=== PATIENT | female | born 1955 | race Caucasian/White ===

== ENCOUNTER 2017-03-01 16:40 | Emergency (ER) | payer BC ==
[2017-03-01 17:13] VITALS: TEMP 97.2
[2017-03-01] MEDS ORDERED: KETOROLAC 30 MG/ML 1 ML VIAL IM STA (17:20)
--- NOTE | 2017-03-01 17:30 | ED ---
Upper Extremity HPI - General Source: patient, RN notes reviewed Mode of arrival: ambulatory Limitations: no limitations <Sally Diehl - Last Filed: 03/01/17 19:39> <Israel Cross - Last Filed: 03/01/17 19:39> - General Chief Complaint: Extremity Injury, Upper Stated Complaint: Left Arm Injury Time Seen by Provider: 03/01/17 17:14 - History of Present Illness Initial Comments: This is a 62-year-old female who presents to the emergency department with chief complaint of left elbow injury. Patient states she was standing on a bale of hay in her barn at approximately 2:15 this afternoon. She reached up to grab a bale of hay higher up and 2 parker of hay came down, knocking her to the ground. Patient landed on her left arm. She states that she has elbow pain and feels it may be broken or dislocated. Denies any other injury or trauma. She applied ice to the area. She did not take any medications. Patient denies being on any blood thinners. She denies any head trauma. Denies fever, chills, chest pain, shortness of breath, abdominal pain, nausea or vomiting, constipation or diarrhea, numbness or tingling, headache or vision changes. (Sally Diehl) - Related Data Previous Rx's Medication Instructions Recorded HYDROcodone/APAP 5-325MG [[place] 5] 1 each PO Q6HR PRN #12 tab 03/01/17 Allergies Allergy/AdvReac Type Severity Reaction Status Date / Time Sulfa (Sulfonamide Allergy Unknown Verified 03/01/17 17:14 Antibiotics) Childhood Review of Systems ROS Other: All systems not noted in ROS Statement are negative. <Sally Diehl - Last Filed: 03/01/17 19:39> ROS Other: All systems not noted in ROS Statement are negative. <Israel Cross - Last Filed: 03/01/17 19:39> ROS Statement: Those systems with pertinent positive or pertinent negative responses have been documented in the HPI. Past Medical History Past Medical History: Hypertension History of Any Multi-Drug Resistant Organisms: None Reported Past Surgical History: No Surgical Hx Reported Past Psychological History: No Psychological Hx Reported Smoking Status: Never smoker Past Alcohol Use History: None Reported Past Drug Use History: None Reported <Sally Diehl - Last Filed: 03/01/17 19:39> General Exam Limitations: no limitations <ShanitaHal fishmanSally Tamir - Last Filed: 03/01/17 19:39> <Israel Cross - Last Filed: 03/01/17 19:39> - General Exam Comments Initial Comments: General: Awake and alert, well-developed; in no apparent distress. HEENT: Head atraumatic, normocephalic. Pupils are equal, round and reactive to light. Extraocular movements intact. Neck: Supple. Normal ROM. Cardiovascular: Regular rate and rhythm. No murmurs, rubs or gallops. Chest symmetrical. Respiratory: Lungs clear to auscultation bilaterally. No wheezes, rales or rhonchi. Normal respiratory effort with no use of accessory muscles. Musculoskeletal: There is an obvious gross deformity of the left elbow. Patient unable to flex or extend the elbow due to pain. Sensation is intact. Capillary refill <2 seconds. Radial pulses are 2+, equal and palpable bilaterally. Skin: [place], warm and dry without rashes or lesions. Neurological: Alert and oriented x3. CN II-XII grossly intact. Speech is fluent and answers are appropriate. No focal neuro deficits. Psychiatric: Normal mood and affect. No overt signs of depression or anxiety noted. (MailiHal fishmanSally Tamir) Vital Signs 03/01/17 17:09 Temperature 97.2 F L Pulse Rate 58 L Respiratory 17 Rate Blood Pressure 134/69 O2 Sat by Pulse 99 Oximetry Procedures - Orthopedic Splinting/Casting Injury #1 Side: left Upper Extremity Injury Location: elbow Upper Extremity Immobilizer: posterior splint, synthetic pre-padded splint <Sally Diehl - Last Filed: 03/01/17 19:39> - Orthopedic Joint Reduction Joint #1 Consent Obtained: verbal consent Time Out Performed: Yes Side: left Joint Reduction Location: elbow Technique Used: traction/counter-traction, direct manipulation Post-Reduction Neuro Exam: intact Post-Reduction Vascular Exam: intact Post Reduction X-Ray Obtained: Yes Post Reduction X-Ray Results: reduced Splint Applied: Yes Patient Tolerated Procedure: well <Israel Cross - Last Filed: 03/01/17 19:39> - Orthopedic Splinting/Casting Injury #1 Additional Comments: short arm OCL posterior splint. tolerated well without complication. neurovascularly intact. (Sally Diehl) Medical Decision Making - Radiology Data Radiology results: report reviewed <Sally Diehl - Last Filed: 03/01/17 19:39> <Israel Cross - Last Filed: 03/01/17 19:39> - Medical Decision Making This is a 62-year-old female who presented to the emergency department for evaluation of left elbow injury. X-ray revealed a total dislocation of the left elbow. Patient was given Valium and [place]. Patient was evaluated by Dr. Cross, who manually reduced the dislocation with success. Patient is neurovascularly intact. Posterior splint placed and patient tolerated well without complication. Patient provided with sling. She will be discharged home with recommendation to follow-up with orthopedics within 1-2 days. She is in agreement with plan voices understanding. All questions were answered. (Sally Diehl) - Radiology Data Left elbow x-ray impression: Complete dislocation of the left elbow. Fractures are not evident. Post-reduction left elbow x-ray impression: 1. Interval reduction. 2. Findings suspicious for nondisplaced transverse fracture the medial epicondyle. (Sally Diehl) Disposition Time of Disposition: 19:39 <Sally Diehl - Last Filed: 03/01/17 19:39> <Israel Cross - Last Filed: 03/01/17 19:39> Clinical Impression: Elbow dislocation Disposition: HOME SELF-CARE Condition: Good Instructions: Elbow Dislocation (ED) Additional Instructions: Please follow-up with Dr. Sanchez within 1-2 days. Please keep splint clean, dry and intact. Please take medications as prescribed. Please follow up with primary care provider within 1-2 days. Return to emergency department if symptoms should worsen or any concerns arise. Prescriptions: HYDROcodone/APAP 5-325MG [[place] 5] 1 each PO Q6HR PRN #12 tab PRN Reason: Pain Referrals: Rogerio Grissom MD [Primary Care Provider] - 1-2 days Delvin Sanchez MD [STAFF PHYSICIAN] - 1-2 days
[2017-03-01] MEDS ORDERED: DIAZEPAM 2 MG TAB PO STA (17:40)
[2017-03-01] MEDS ORDERED: HYDROcodone/APAP 5-325MG 1 EACH TAB PO STA (17:40)
--- NOTE | 2017-03-01 17:53 | XR ---
PROCEDURE: XR elbow limited LT, 2 views DATE AND TIME: 03/01/2017 5:31 PM REFERRING PHYSICIAN: Sally Diehl CLINICAL INDICATION: PHH, Pain TECHNIQUE: Lateral and oblique lateral views were obtained. COMPARISON: None FINDINGS: There is complete dislocation of the elbow. Fractures are not evident. IMPRESSION: Left elbow dislocation.
--- NOTE | 2017-03-01 19:16 | XR ---
PROCEDURE: XR elbow limited LT, 2 views DATE AND TIME: 03/01/2017 7:08 PM REFERRING PHYSICIAN: Israel Cross DO CLINICAL INDICATION: PHH, Post reduction TECHNIQUE: AP and lateral views COMPARISON: None FINDINGS: There is interval reduction of the previously dislocated elbow. Anatomic positioning and al ignment is noted at the present time. A transverse linear lucency is noted over the medial epicondyle, suspicious for nondisplaced transver se fracture. Joint effusion is noted. Prominent medial soft tissue swelling is noted. IMPRESSION: 1. INTERVAL REDUCTION. 2. FINDINGS SUSPICIOUS FOR NONDISPLACED TRANSVERSE FRACTURE OF THE MEDIAL EPICONDYLE.
[2017-03-01 19:46] VITALS: BP 135/72; PULSE 66; RESP 16
== END 2017-03-01 19:46 | disposition home or self-care (01) ==
LOC: EC 16:40
DX: S53.102A Unspecified subluxation of left ulnohumeral joint, initial encounter (principal); Z88.2 Allergy status to sulfonamides; W17.89XA Other fall from one level to another, initial encounter; Y92.71 Barn as the place of occurrence of the external cause; Y93.89 Activity, other specified
CPT/HCPCS: 73070; 99283; 24600; 96372; J1885

== ENCOUNTER 2023-02-03 18:06 | Inpatient (IN) | payer BC, OTHER ==
[2023-02-03] MEDS ORDERED: SODIUM CHLORIDE 0.9% 1,000 ML IV STA (18:28)
[2023-02-03] MEDS ORDERED: FAMOTIDINE 20 MG/2 ML VIAL IV STA (18:29)
[2023-02-03] MEDS ORDERED: HYDROmorphone 1 MG/ML 1 ML SYRINGE IVP STA (18:29)
--- NOTE | 2023-02-03 18:31 | ED ---
General Adult HPI - General Source: patient, RN notes reviewed Mode of arrival: ambulatory Limitations: no limitations <Juan Moore - Last Filed: 02/03/23 18:29> <Canelo Claudio - Last Filed: 02/03/23 22:54> - General Chief complaint: Abdominal Pain Stated complaint: abd pain Time Seen by Provider: 02/03/23 18:21 - History of Present Illness Initial comments: Patient is a pleasant 67-year-old female presenting to the emergency department with concerns with abdominal pain. Onset of symptoms was yesterday. No history of similar symptoms previous to. Discomfort is somewhat moderate to severe. No nausea or vomiting. Patient did have some constipation however that resolved a couple days ago. Discomfort is mid to lower abdomen (Juan Moore) - Related Data Previous Rx's Medication Instructions Recorded HYDROcodone/APAP 5-325MG [[place] 5] 1 each PO Q6HR PRN #12 tab 03/01/17 Allergies Allergy/AdvReac Type Severity Reaction Status Date / Time Sulfa (Sulfonamide Allergy Unknown Verified 03/01/17 17:14 Antibiotics) Childhood Review of Systems ROS Other: All systems not noted in ROS Statement are negative. Constitutional: Denies: fever Eyes: Denies: eye pain ENT: Denies: ear pain Respiratory: Denies: cough Cardiovascular: Denies: chest pain Gastrointestinal: Reports: as per HPI, abdominal pain. Denies: nausea, vomiting Genitourinary: Denies: dysuria Musculoskeletal: Denies: back pain Skin: Denies: rash Neurological: Denies: weakness <Juan Moore - Last Filed: 02/03/23 18:29> ROS Other: All systems not noted in ROS Statement are negative. <Canelo Claudio - Last Filed: 02/03/23 22:54> ROS Statement: Those systems with pertinent positive or pertinent negative responses have been documented in the HPI. Past Medical History Past Medical History: Hypertension History of Any Multi-Drug Resistant Organisms: None Reported Past Surgical History: No Surgical Hx Reported Past Psychological History: No Psychological Hx Reported Smoking Status: Never smoker Past Alcohol Use History: None Reported Past Drug Use History: None Reported <Juan Moore - Last Filed: 02/03/23 18:29> General Exam Limitations: no limitations General appearance: alert, in no apparent distress Head exam: Present: normocephalic Eye exam: Present: normal appearance Neck exam: Present: normal inspection Respiratory exam: Present: normal lung sounds bilaterally Cardiovascular Exam: Present: tachycardia Expanded Peripheral pulses: 2+: Dorsalis Pedis (R), Dorsalis Pedis (L) GI/Abdominal exam: Present: soft, tenderness (Moderate mid and moderate lower abdominal tenderness to palpation), diminished bowel sounds. Absent: distended, guarding, rebound, rigid, pulsatile mass Extremities exam: Present: normal inspection Neurological exam: Present: alert Psychiatric exam: Present: normal affect, normal mood Skin exam: Present: normal color <Juan Moore - Last Filed: 02/03/23 18:29> Course Vital Signs 02/03/23 18:14 Temperature 97.6 F Pulse Rate 116 H Respiratory 18 Rate Blood Pressure 146/83 O2 Sat by Pulse 99 Oximetry Medical Decision Making - Lab Data Result diagrams: 02/03/23 18:34 02/03/23 18:34 <Canelo Claudio - Last Filed: 02/03/23 22:54> - Medical Decision Making Patient's signout to me at 9:00 PM. At signout plan was follow up with pending CT imaging. Labs were reviewed no leukocytosis. Rest of labs within acceptable limits. I did review the films and did show some inflammatory changes in the lower abdomen. Radiology called with final report states that patient has a complicated diverticulitis versus acute appendicitis. Chin evaluated at bedside at 10:50 PM. She does have surgical abdomen. Clinical presentation fevers complicated diverticulitis as opposed to acute appendicitis. She states that she has no history of appendectomy. Case discussed with Dr. Castrejon who is agreeable for consultation on this patient. Patient otherwise will be admitted to hospitalist. Diagnosis/symptom? @ -Complicated diverticulitis Acute, or Chronic, or Acute on Chronic? @ -Acute Uncomplicated (without systemic symptoms) or Complicated (systemic symptoms)? @ -Complicated Side effects of treatment? @ -none Exacerbation, Progression, or Severe Exacerbation] @ -no Poses a threat to life or bodily function? @ -yes (Canelo Claudio) - Lab Data Lab Results 02/03/23 02/03/23 02/03/23 Range/Units 18:34 18:34 18:34 WBC 9.2 (3.8-10.6) k/uL RBC 5.11 (3.80-5.40) m/uL Hgb 15.4 (11.4-16.0) gm/dL Hct 45.0 (34.0-46.0) % MCV 88.1 (80.0-100.0) fL MCH 30.0 (25.0-35.0) pg MCHC 34.1 (31.0-37.0) g/dL RDW 13.8 (11.5-15.5) % Plt Count 282 (150-450) k/uL MPV 8.0 Neutrophils % 84 % Lymphocytes % 11 % Monocytes % 4 % Eosinophils % 0 % Basophils % 0 % Neutrophils # 7.7 (1.3-7.7) k/uL Lymphocytes # 1.0 (1.0-4.8) k/uL Monocytes # 0.3 (0-1.0) k/uL Eosinophils # 0.0 (0-0.7) k/uL Basophils # 0.0 (0-0.2) k/uL PT 10.2 (10.0-12.5) sec INR 0.9 (<1.2) APTT 24.2 (22.0-30.0) sec Sodium 138 (137-145) mmol/L Potassium 4.5 (3.5-5.1) mmol/L Chloride 99 (98-107) mmol/L Carbon Dioxide 22 (22-30) mmol/L Anion Gap 17 mmol/L BUN 26 H (7-17) mg/dL Creatinine 0.91 (0.52-1.04) mg/dL Est GFR (CKD-EPI)AfAm 76 (>60 ml/min/1.73 sqM) Est GFR (CKD-EPI)NonAf 65 (>60 ml/min/1.73 sqM) Glucose 158 H (74-99) mg/dL Calcium 10.1 (8.4-10.2) mg/dL Total Bilirubin 1.2 (0.2-1.3) mg/dL AST 26 (14-36) U/L ALT 31 (4-34) U/L Alkaline Phosphatase 82 (38-126) U/L Total Protein 9.2 H (6.3-8.2) g/dL Albumin 4.9 (3.5-5.0) g/dL Amylase 43 (30-110) U/L Lipase 45 (23-300) U/L Disposition <Juan Moore - Last Filed: 02/03/23 18:29> Decision Time: 22:54 <Canelo Claudio - Last Filed: 02/03/23 22:54> Clinical Impression: Diverticulitis Disposition: ADMITTED IP TO THIS HOSP Condition: Serious Referrals: None,Stated [Primary Care Provider] - 1-2 days
[2023-02-03 19:36] LABS: INR 0.9 (<1.2); Partial Thromboplastin Time 24.2 sec (22.0-30.0); Prothrombin Time 10.2 sec (10.0-12.5)
[2023-02-03 19:37] LABS: ALT 31 U/L (4-34); AST 26 U/L (14-36); African American GFR (CKD) 76 (>60 ml/min/1.73 sqM); Albumin 4.9 g/dL (3.5-5.0); Alkaline Phosphatase 82 U/L (38-126); Amylase 43 U/L (30-110); Anion Gap 17 mmol/L; Blood Urea Nitrogen 26 mg/dL (7-17); Calcium 10.1 mg/dL (8.4-10.2); Carbon Dioxide 22 mmol/L (22-30); Chloride 99 mmol/L (98-107); Glucose 158 mg/dL (74-99); Lipase 45 U/L (23-300); Non-African American GFR(CKD) 65 (>60 ml/min/1.73 sqM); Potassium 4.5 mmol/L (3.5-5.1); Sodium 138 mmol/L (137-145); Total Bilirubin 1.2 mg/dL (0.2-1.3); Total Protein 9.2 g/dL (6.3-8.2)
[2023-02-03 19:42] LABS: Basophils % (A) 0 %; Eosinophils % (A) 0 %; HGB 15.4 gm/dL (11.4-16.0); Lymphocytes % (A) 11 %; MCHC 34.1 g/dL (31.0-37.0); MCV 88.1 fL (80.0-100.0); Monocytes # (A) 0.3 k/uL (0-1.0); Monocytes % (A) 4 %; Neutrophils # (A) 7.7 k/uL (1.3-7.7); Neutrophils % (A) 84 %; Platelet Count 282 k/uL (150-450); RBC 5.11 m/uL (3.80-5.40); RDW 13.8 % (11.5-15.5); WBC 9.2 k/uL (3.8-10.6)
[2023-02-03] MEDS ORDERED: PIPERACILLIN-TAZOBACTAM 3.375 GM in SODIUM CHLORIDE 0.9% 100 ML IVPB STA (22:24)
--- NOTE | 2023-02-03 22:32 | CT ---
EXAMINATION TYPE: CT abdomen pelvis w con CT DLP: 1059.8 mGycm, Automated exposure control for dose reduction was used. DATE OF EXAM: 02/03/2023 8:32 PM COMPARISON: None. CLINICAL INDICATION:Female, 67 years old with history of abdominal pain; Medial abdominal pain. TECHNIQUE: Axial CT of the abdomen and pelvis. Sagittal and coronal reformats were created on a [employer] workstation. Contrast used:80 ml mL of Isovue 300 with IV Contrast, (none if empty) Oral contrast used: without Oral Contrast (none if empty) FINDINGS: LOWER CHEST: Minimal dependent atelectasis. Heart normal in size. ABDOMEN LIVER: Unremarkable GALLBLADDER AND BILE DUCTS: Gallbladder appears mildly distended without visualized pericholecystic i nflammation. There is no calcified stone visible. The CBD appears mildly prominent at 9 mm, appears t o taper relatively normal distally. PANCREAS: Unremarkable. SPLEEN: Unremarkable. ADRENAL GLANDS: Mildly thickened without evidence of mass.. KIDNEYS AND URETERS: Kidneys enhance symmetrically. Transverse lie of the right kidney. Small low-den sity nodule in the posterior right kidney is not fully characterized, but has the appearance of a cys t. No hydronephrosis. PELVIS BLADDER: Mildly distended, grossly unremarkable. REPRODUCTIVE: Unremarkable. ABDOMEN & PELVIS STOMACH AND BOWEL: Stomach is fluid-filled proximally, nondistended distally. Duodenum appears within normal limits. Multiple nondistended loops of small bowel are present, there is no evidence of obstr uction. Mild fatty infiltration of the ileocecal valve. There is an abnormal appearance within the r ight upper pelvis and right lower quadrant. Appendix is not definitively seen. There is extensive inf lammatory infiltration of the fat and some nonfocal fluid seen within the right lower quadrant and in to the pelvis. There are multiple small foci of extraluminal gas highly concerning for perforated vis cus. A collection which appears to contain some stool and gas in the right lower quadrant inferior to the cecum medially is 3 x 1.7 cm in size; this may represent extraluminal stool or abscess. Origin i s not entirely certain, but there appears to be adjacent gas which extends toward the midline of the pelvis and towards the sigmoid colon, where there are numerous colonic diverticula seen, and the sigm oid wall appears thickened. Moderate stool throughout the colon without evidence of obstruction. PERITONEUM/RETROPERITONEUM: Small amounts of free fluid in the abdomen and pelvis. Multiple small foc i of free intraperitoneal air, greatest in the pelvis and right lower quadrant, as described above. S everal additional small foci of free air also seen in the abdomen. VASCULATURE: Mild atherosclerotic calcifications are present throughout the abdominal aorta and its b ranches. No evidence of aortic aneurysm. MUSCULOSKELETAL: Moderate degenerative changes of the spine, greatest at L4-L5 and L5-S1 there is vac uum disc and disc osteophyte complexes plus facet arthrosis resulting in at least moderate canal and bilateral neural foraminal stenoses. Small sclerotically marginated Schmorl's node along the superior endplate T12. No clearly acute bony abnormality. LYMPH NODES: No gross evidence for lymphadenopathy. SOFT TISSUE/ABDOMINAL WALL: Unremarkable IMPRESSION: 1. Abnormal appearance of the right lower quadrant and upper pelvis, with extensive inflammatory azael nges and multiple foci of extraluminal gas highly concerning for perforated viscus. There is also a 3 x 1.7 cm collection which appears to contain gas and stool in the right lower quadrant, this may res ent extraluminal stool or abscess. The exact origin is not certain, but a perforated sigmoid divertic ulitis is strongly considered. Appendicitis would be a differential consideration. 2. Small amounts of free fluid in the abdomen and pelvis. 3. Other chronic and likely incidental findings, as described above. Dr. Medrano discussed the above critical findings (perforated viscus with free intraperitoneal air) paris Moore DO on 02/03/2023 10:23 PM via telephone. Read back of the patient's identifying informa tion and the important finding/s was performed.
[2023-02-03] MEDS ORDERED: NALOXONE 0.4 MG/ML 1 ML VIAL IV PRN (22:51)
[2023-02-03] MEDS ORDERED: ACETAMINOPHEN TAB 325 MG TAB PO PRN (22:51)
[2023-02-03] MEDS: HYDROmorphone 1 MG/ML 1 ML SYRINGE IVP PRN (23:18)
[2023-02-04] MEDS: SODIUM CHLORIDE 0.9% 1,000 ML IV SCH ×4 (00:10→22:06)
[2023-02-04 00:28] LABS: Hyaline Casts,Urine 7 /lpf (0-2); RBC,Urine 22 /hpf (0-5); Squamous Epithelial Cell,Urine 3 /hpf (0-4); WBC,Urine 10 /hpf (0-5)
[2023-02-04 00:33] LABS: Appearance,Urine Clear (Clear); Bilirubin,Urine Negative (Negative); Blood,Urine Large (Negative); Color,Urine Yellow; Glucose,Urine (UA) Negative (Negative); Ketones,Urine 1+ (Negative); Leukocyte Esterase,Urine Trace (Negative); Nitrite,Urine Negative (Negative); PH, Urine 5.5 (5.0-8.0); Protein,Urine 1+ (Negative); Specific Gravity,Urine 1.015 (1.001-1.035); Urobilinogen,Urine 0.2 mg/dL (<2.0)
--- NOTE | 2023-02-04 01:15 | P.CON ---
Consult Note - . Consult date: 02/04/23 Assessment/Plan:: CC: Abdominal pain HPI: 67-year-old female notes abdominal pain which began approximately a day and a half prior to presentation, pain mild at first and became progressively worse patient notes pain in the lower abdomen, slightly greater right side and left. Patient denies any fever or chills, notes no nausea or vomiting, no diarrhea. Patient notes some recent constipation with a large BM a few days ago, has passed a small amount of flatus today. Denies any previous history of similar complaints. Patient has not had previous colonoscopy. 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 PE: Patient is drowsy, oriented 3, appears mildly uncomfortable Temp 97.6 pulse rate 98, BP 142/83 Sclerae clear nonicteric No cervical adenopathy Chest clear to auscultation Tachycardia, no murmur noted Abdomen's protuberant, moderately obese, tender in lower quadrants bilaterally LABS: Hemoglobin 15.4, WBC 9.2, platelets 282, electrolytes normal, glucose 158, BUN/creatinine 26 over 0.9, lipase normal Imaging: CT abdomen and pelvis notes marked inflammatory change in lower abdomen with probable abscess 3 x 1.7 cm right lower quadrant, diverticular changes are noted in the sigmoid colon, small amount of extraluminal gas also noted. A/P: 67-year-old female with complicated diverticulitis, probable small abscess Agree with broad-spectrum antibiotics, nothing by mouth, IV fluid hydration Consider IR consult for possible drainage, patient may need exploration with colectomy if symptoms progress DVT prophylaxis, your medical care
[2023-02-04] MEDS: metroNIDAZOLE-NS PMX 500 MG in SALINE 1 100ML.BAG IVPB SCH ×3 (01:44→21:55)
[2023-02-04] MEDS: PIPERACILLIN-TAZOBACTAM 3.375 GM in SODIUM CHLORIDE 0.9% 100 ML IVPB SCH ×3 (06:30→23:51)
[2023-02-04] MEDS: HEPARIN SODIUM,PORCINE 5,000 UNIT/ML 1 ML VIAL SQ SCH ×2 (07:56→22:05)
[2023-02-04 10:22] LABS: Basophils % (A) 0 %; Eosinophils % (A) 0 %; HCT 41.3 % (34.0-46.0); HGB 13.4 gm/dL (11.4-16.0); Lymphocytes # (A) 0.8 k/uL (1.0-4.8); Lymphocytes % (A) 8 %; MCH 29.1 pg (25.0-35.0); MCHC 32.3 g/dL (31.0-37.0); MCV 90.1 fL (80.0-100.0); Mean Platelet Volume 8.3; Monocytes # (A) 0.5 k/uL (0-1.0); Monocytes % (A) 5 %; Neutrophils # (A) 8.8 k/uL (1.3-7.7); Neutrophils % (A) 86 %; Platelet Count 221 k/uL (150-450); RBC 4.58 m/uL (3.80-5.40); RDW 13.8 % (11.5-15.5); WBC 10.3 k/uL (3.8-10.6)
[2023-02-04] MEDS ORDERED: hydrALAZINE HCL 20 MG/ML 1 ML VIAL IVP PRN (13:04)
--- NOTE | 2023-02-04 13:38 | P.PN ---
Subjective Progress Note Date: 02/04/23 Patient has clinical decline since admission with progressed peritonitis. Abdominal pain started 3 days ago of the lower abdomen now generalized. CT reviewed with perforated diverticulitis with free air. Patient with sepsis with tachycardia, fever, peritonitis and somnolence. Benefits and risks of emergent sigmoid colectomy, colostomy described. Patient wished to proceed. Objective - Vital Signs Vital signs: Vital Signs Temp 99.7 F H 02/04/23 10:49 Pulse 120 H 02/04/23 07:40 Resp 17 02/04/23 07:40 BP 148/80 02/04/23 07:17 Pulse Ox 97 02/04/23 07:17 FiO2 Intake & Output 02/03/23 02/04/23 02/04/23 18:59 06:59 18:59 Weight 77.111 kg 77.111 kg - Labs CBC & Chem 7: 02/04/23 07:27 02/03/23 18:34 Labs: Abnormal Lab Results - Last 24 Hours (Table) 02/03/23 02/03/23 02/04/23 Range/Units 18:34 23:22 07:27 Neutrophils # 8.8 H (1.3-7.7) k/uL Lymphocytes # 0.8 L (1.0-4.8) k/uL BUN 26 H (7-17) mg/dL Glucose 158 H (74-99) mg/dL Total Protein 9.2 H (6.3-8.2) g/dL Urine Protein 1+ H (Negative) Urine Ketones 1+ H (Negative) Urine Blood Large H (Negative) Ur Leukocyte Esterase Trace H (Negative) Urine RBC 22 H (0-5) /hpf Urine WBC 10 H (0-5) /hpf Hyaline Casts 7 H (0-2) /lpf
--- NOTE | 2023-02-04 14:38 | XR ---
EXAMINATION TYPE: XR chest 1V portable DATE OF EXAM: 02/04/2023 2:33 PM CLINICAL INDICATION:Female, 67 years old with history of chf; PHH COMPARISON: None. TECHNIQUE: XR chest 1V portable Frontal view of the chest. FINDINGS: Lungs/Pleura: Subsegmental atelectasis is noted in the right lung base. No evidence of pleural effusi on or pneumothorax. Pulmonary vascularity: Unremarkable. Heart/mediastinum: Cardiomediastinal silhouette is unremarkable. Musculoskeletal: No acute osseous pathology. IMPRESSION: No acute cardiopulmonary disease/process.
[2023-02-04] MEDS: PANTOPRAZOLE 40 MG/10 ML VIAL IVP SCH ×2 (15:06→22:05)
[2023-02-04] MEDS ORDERED: SODIUM CHLORIDE 0.9% 2,000 ML IV ONE (15:30)
[2023-02-04] MEDS ORDERED: ACETAMINOPHEN IV (For NPO) 1,000 MG in EMPTY BAG 1 BAG IVPB STA (15:30)
[2023-02-04] MEDS ORDERED: IV FLUID CONTINUATION 400 ML IV ONE (16:14)
[2023-02-04] MEDS ORDERED: ePHEDrine 50 MG/ML 1 ML VIAL ONE (16:38)
[2023-02-04] MEDS ORDERED: ONDANSETRON 4 MG/2 ML VIAL ONE (16:38)
[2023-02-04] MEDS ORDERED: PROPOFOL 10 MG/ML 20 ML VIAL IV ONE (16:38)
[2023-02-04] MEDS ORDERED: ROCURONIUM 10 MG/ML (5 ML VIAL) IV ONE (16:38)
[2023-02-04] MEDS ORDERED: GLYCOPYRROLATE 0.2 MG/ML 2 ML VIAL ONE (16:38)
[2023-02-04] MEDS ORDERED: HYDROmorphone (PF) 1 MG/ML ONE (16:38)
[2023-02-04] MEDS ORDERED: DEXAMETHASONE SOD PHOSPHATE 4 MG/ML 1 ML VIAL ONE (16:38)
[2023-02-04] MEDS ORDERED: PHENYLEPHRINE-0.9% NACL SYG 1,000 MCG/10 ML SYRINGE ONE (16:38)
[2023-02-04] MEDS ORDERED: LIDOCAINE 1% INJ 10MG/ML (20 ML MDV) ONE (16:38)
[2023-02-04] MEDS ORDERED: NEOSTIGMINE 1 MG/ML 10 ML VIAL ONE (16:38)
[2023-02-04] MEDS ORDERED: fentaNYL (PF) 50 MCG/ML 2 ML AMP ONE (16:38)
[2023-02-04] MEDS ORDERED: SUCCINYLCHOLINE CHLORIDE 200 MG/10 ML VIAL IV ONE (16:38)
[2023-02-04] MEDS ORDERED: ceFAZolin 1,000 MG VIAL ONE (17:12)
[2023-02-04] MEDS ORDERED: SODIUM CHLORIDE 0.9% 50 ML with ceFAZolin 2,000 MG IV ONE ×2 (17:12)
[2023-02-04] MEDS ORDERED: SODIUM CHLORIDE 0.9% 100 ML BAG ONE (17:12)
[2023-02-04] MEDS ORDERED: METOCLOPRAMIDE 5 MG/ML 2 ML VIAL IVP PRN (19:29)
--- NOTE | 2023-02-04 19:36 | P.OP ---
Date of Procedure: 02/04/23 Description of Procedure: SURGEON: JOSIAH NELSON MD PREOPERATIVE DIAGNOSES: 1. Perforated viscus with pneumoperitoneum 2. Sepsis 3. Abnormal computed tomography scan for perforated diverticulitis POSTOPERATIVE DIAGNOSES: 1. Sigmoid diverticulitis 2. Perforated appendicitis 3. Pelvic abscess OPERATION: 1. Exploratory laparotomy with sigmoid resection for diverticulitis 2. Descending colostomy. 3. Open appendectomy for perforated necrotic appendicitis 4. Hoang's procedure similar diverticulitis 5. Peritoneal lavage over 3 liters 6. Placement of intraabdominal #19 Gordon drain along the right lower pelvis. 7. Placement of 20 cm PREVENA wound VAC system 8. Drainage of intra-abdominal abscess 100 mL, pelvis 9. Open lysis of adhesions ANESTHESIA: General ESTIMATED BLOOD LOSS: 50mL. SPECIMENS REMOVED: Sigmoid colon, aerobic and anaerobic culture pelvic abscess, appendix COMPLICATIONS: None. Pathology: other (Aerobic and anaerobic culture of pelvic fluid, sigmoid colon, appendix) Condition: stable Disposition: floor Operative Findings: 1. Perforated sigmoid colon with adherence to the left pelvis along the mesentery 2. Localized intra-abdominal pelvic abscess over 100 mL drained 3. Intra-abdominal pelvic adhesions 4. Redundant sigmoid colon 5. Perforated necrotic appendicitis at base with appendicolith 2, 1-cm removed. 6. Developing phlegmon of the pelvis INDICATIONS: The patient is a 67-year-old female who presents with free air from perforated viscus. Abnormal computed tomography scan demonstrated perforated diverticulitis. Patient became febrile with sepsis. Emergency surgical intervention was described including but not limited to Coulter catheter, nasogastric tube, colectomy, ostomy creation, prolonged hospitalization, increased morbidity due to Covid infection. All questions were answered with diagrams of the colon reviewed. Rrisks were reviewed with the patient including at bedside. Informed consent was obtained. DESCRIPTION: Patient was brought to the operating room. Preoperative medications including antibiotics and heparin were given. The patient was placed in supine position whereby general induction was performed. Abdomen had been prepped and draped in the standard sterile fashion with placement of nasogastric tube and Coulter catheter. Ioban draping was also placed to minimize any contamination to the skin. Next, using #10 blade, the abdomen was entered along the midline whereby an incision was made just above the umbilicus down to the pubis. The abdomen was inspected whereby the small bowel was unremarkable. The mesentery was also unremarkable. Intra-abdominal pelvic abscess localized was found and drained. Separately, the liver surface was palpated and unremarkable. No peritoneal studding was identified. Next, Bookwalter retractor was placed. The descending colon and sigmoid colon was mobilized along the medial and lateral attachments with care to avoid any injury to the ureters along the usual anatomical landmarks. Carefully the sigmoid colon was identified and mobilized. The sigmoid colon was moderately redundant with perforation along the intermesenteric border of the mid sigmoid colon which was densely adherent to the left pelvis. Lysis of adhesions was performed using Enseal. Previous omental adhesions to the right lower quadrant was similarly removed using Enseal. The sigmoid colon was mobilized along the mesentery where a window was made along the mesentery and the colon was divided such that the descending colon was prepared for maturation of a colostomy. The colon was divided proximally and distally of the perforation using ALICE App Endo CHRISTINA black ronald. The specimen was passed off. Hemostasis was checked with electro Bovie cautery including Enseal. The abdomen was copiously irrigated with 3 L of normal saline solution. A round #19 drain was placed after tagging the rectal stump using 2-0 Prolene. Next, attention was brought to the delivering and creating of the descending colostomy. A point along the abdominal wall and rectus muscle was selected for the colostomy. Isra was used to elevate the skin and Bovie cautery was taken across in tangential manner to create the skin defect of approximately quarter-size. The fat of the skin was mobilized using a small rich. The rectus muscle was identified and scored with a cruciate scoring of electro- Bovie cautery. Next, using a muscle-splitting technique with a hemostat, the peritoneum was entered. The peritoneum was widened such that 2 fingerbreadths could easily pass for delivering and evaginating the descending portion of the colon through the skin. The abdominal cavity was copiously irrigated as described until completely clear. Round number #19 Gordon drain was entered along the right lower abdomen and exited through the skin. The drain was placed along the pelvis as all irrigation fluid was accounted for. Next, the RUBEN drain was tacked along the skin using a 2-0 nylon. The midline incision was closed using double-stranded 0 PDS. Next, the subcutaneous tissue was copiously irrigated with normal saline and hydrogen peroxide. For the rest of the incision, stainless steel skin ronald were applied. The midline incision was covered using universal PREVENA wound VAC and attention was brought to maturation of the colostomy. The staple edge was divided and removed. Next quadrant sutures at 12 o'clock, 3 o'clock, 6 o'clock, and 9 o'clock position was made using serosa, mucosal and dermal bites using 2-0 Vicryl. Interrupted 3-0 Vicryl was placed in between all quadrants sutures to completely mature the ostomy. Hemostasis was checked. A Coloplast was then placed. At the end of the procedure, needle, sponge, and instrument count had been verified correct by aviation electrical technician. The patient's family was updated on level of care.
--- NOTE | 2023-02-04 21:05 | HP ---
HISTORY AND PHYSICAL CHIEF COMPLAINT: Abdominal pain. HISTORY OF PRESENT ILLNESS: This is a 67-year-old woman with a past medical history of hypertension, who was complaining of severe abdominal pain, which was felt in the lower part and the mid part of the abdomen. The pain was [id number]. The patient had some constipation, which has resolved a few days prior to the admission. The CAT scan of the abdomen and pelvis done showed extensive inflammatory changes with possible multiple foci of extraluminal gas and suspicious for perforated viscus. Surgery is following the patient closely. Please refer to the surgical consultation note for further details. The patient is started on broad-spectrum IV antibiotics. There is no history of any fever, rigor, or chills at this time. White count is normal. PAST MEDICAL HISTORY: History of hypertension. Rest of the history and rest of the chart are also reviewed. HOME MEDICATIONS: Reviewed include amlodipine. Doses and rest of the medications are noted. ALLERGIES: Sulfa. FAMILY HISTORY: No history of heart disease or strokes in the family. SOCIAL HISTORY: No history of smoking or alcohol intake. REVIEW OF SYSTEMS: Fourteen-point review is negative except as mentioned earlier. PHYSICAL EXAMINATION: VITAL SIGNS: Pulse is 120, blood pressure 148/80, respirations 17, temperature of 100.7. HEENT: Conjunctivae are normal. NECK: No jugular venous distention. CARDIOVASCULAR: S1 and S2 muffled. RESPIRATORY: Breath sounds diminished at the bases. No rhonchi. No crackles. ABDOMEN: Soft. Distended. Mild diffuse tenderness present, especially in the right mid and lower quadrant. No guarding. No rigidity. No ascites. Bowel sounds diminished. LEGS: No edema. NERVOUS SYSTEM: Nonfocal. SKIN: No ulcers or rashes. JOINTS: No active deforming arthropathy. LABORATORY DATA: Noted. ASSESSMENT: 1. Acute abdominal pain with acute abdomen with possible visceral perforation. 2. Diffuse inflammatory changes and collection of fluid. 3. Hypertension. 4. Severe pain. RECOMMENDATIONS AND DISCUSSION: In this 67-year-old woman presented with multiple complex medical issues, we will monitor the patient closely. Continue with current medical management. Continue symptomatic treatment. The patient will continue with broad-spectrum IV antibiotics. Pain management. Otherwise, I would also recommend Protonix and DVT prophylaxis. Continue with Surgical evaluation. The patient will probably require a laparotomy and further evaluation. The staff will talk to the surgeon and continue to monitor. Otherwise, prognosis is guarded. Further recommendations to follow. I would also recommend Infectious Disease evaluation also. The patient probably had features of early sepsis also. MMODL / IJN: [id number] /
[2023-02-04] MEDS: LORATADINE 10 MG TAB PO PRN (22:05)
[2023-02-04] MEDS: ACETAMINOPHEN IV (For NPO) 1,000 MG in EMPTY BAG 1 BAG IVPB SCH (22:06)
[2023-02-04] MEDS: ONDANSETRON 4 MG/2 ML VIAL IVP SCH (23:51)
[2023-02-05] MEDS: metroNIDAZOLE-NS PMX 500 MG in SALINE 1 100ML.BAG IVPB SCH ×3 (02:38→17:12)
[2023-02-05] MEDS: HYDROmorphone 1 MG/ML 1 ML SYRINGE IVP PRN ×4 (02:39→20:10)
[2023-02-05] MEDS: ACETAMINOPHEN IV (For NPO) 1,000 MG in EMPTY BAG 1 BAG IVPB SCH ×3 (04:25→15:03)
[2023-02-05] MEDS: PIPERACILLIN-TAZOBACTAM 3.375 GM in SODIUM CHLORIDE 0.9% 100 ML IVPB SCH ×3 (06:39→23:15)
[2023-02-05] MEDS: ONDANSETRON 4 MG/2 ML VIAL IVP SCH ×4 (06:40→23:15)
[2023-02-05] MEDS: SODIUM CHLORIDE 0.9% 1,000 ML IV SCH ×2 (07:06→14:24)
[2023-02-05 08:37] LABS: Basophils # (A) 0.01 X 10*3/uL (0.00-0.10); Basophils % (A) 0.1 %; Eosinophils # (A) 0 X 10*3/uL (0.04-0.35); Eosinophils % (A) 0 %; HCT 35.9 % (37.2-46.3); HGB 11.6 g/dL (12.0-15.0); Lymphocytes # (A) 0.64 X 10*3/uL (0.90-5.00); Lymphocytes % (A) 5.7 %; MCH 28.7 pg (27.0-32.0); MCHC 32.3 g/dL (32.0-37.0); MCV 88.9 FL (80.0-97.0); Mean Platelet Volume 9.6 FL (9.5-12.2); Monocytes # (A) 0.93 X 10*3/uL (0.20-1.00); Monocytes % (A) 8.3 %; NRBC Per 100 WBC 0 X 10*3/uL (0.00-0.01); Neutrophils # (A) 9.65 X 10*3/uL (1.80-7.70); Neutrophils % (A) 85.6 %; Platelet Count 225 X 10*3/uL (140-440); RBC 4.04 X 10*6/uL (4.10-5.20); RDW 14.6 % (11.5-14.5); WBC 11.26 X 10*3/uL (4.50-10.00)
[2023-02-05] MEDS: HEPARIN SODIUM,PORCINE 5,000 UNIT/ML 1 ML VIAL SQ SCH ×2 (08:52→20:11)
[2023-02-05 08:54] LABS: BUN/Creat Ratio 26.14 Ratio (12.00-20.00); Blood Urea Nitrogen 18.3 mg/dL (9.0-27.0); Glucose 180 mg/dL (70-110)
[2023-02-05 08:55] LABS: ALT 14 U/L (8-44); AST 8 U/L (13-35); Albumin/Globulin Ratio 1.25 Ratio (1.60-3.17); Alkaline Phosphatase 57 U/L (41-126); Calcium 8.7 mg/dL (8.7-10.3); Carbon Dioxide 24.3 mmol/L (21.6-31.8); Chloride 106 mmol/L (96-109); Globulin 2.4 g/dL (1.6-3.3); Potassium 4.5 mmol/L (3.5-5.5); Sodium 138 mmol/L (135-145); Total Bilirubin 0.5 mg/dL (0.3-1.2); Total Protein 5.4 g/dL (6.2-8.2)
[2023-02-05] MEDS: PANTOPRAZOLE 40 MG/10 ML VIAL IVP SCH ×2 (08:56→20:11)
--- NOTE | 2023-02-05 13:50 | P.PN ---
Subjective Progress Note Date: 02/05/23 CHIEF COMPLAINT: Abdominal pain HISTORY OF PRESENT ILLNESS: Patient is postop day #1 status post exploratory laparotomy with sigmoid resection for diverticulitis, descending colostomy, open appendectomy for perforated necrotic appendicitis, Mukherjee's procedure, drainage of intra-abdominal abscess, open lysis of adhesions. Patient is sitting at bedside chair. Her pain is controlled. No function per ostomy. Denies any nausea or vomiting. Currently afebrile. WBC is up to 11.26 Hgb 11.6 platelets 225 cultures pending RUBEN drain with serosanguineous output PHYSICAL EXAM: VITAL SIGNS: Reviewed GENERAL: Well-developed in no acute distress. HEENT: No sclera icterus. Extraocular movements grossly intact. Moist buccal mucosa. Head is atraumatic, normocephalic. Hears conversational speech. No nasal drainage. NECK: Supple without lymphadenopathy. CHEST: Non-labored respirations and equal bilateral excursions. CARDIOVASCULAR: Palpable 2+ radial pulses. ABDOMEN: Soft. Mildly distended. Prevana wound VAC intact. RUBEN drain service and was MUSCULOSKELETAL: No clubbing or cyanosis. NEUROLOGIC: No focal or lateralizing signs. Cranial nerves II through XII grossly intact. PSYCH: Appropriate affect. Alert and oriented to person, place and time. SKIN: Well perfused. Good skin turgor. ASSESSMENT: 1. Sigmoid diverticulitis 2. Perforated appendicitis 3. Pelvic abscess 4. Perforated viscus with pneumoperitoneum 5. Sepsis PLAN: -Advance diet to low fiber -Incentive spirometer ordered -Encouraged patient to increase activity level -Continue antibiotics -Continue pain management -DVT prophylaxis subcu heparin and GI prophylaxis Protonix Physician Doctor Osteopathic note has been reviewed by physician. Signing provider agrees with the documented findings, assessment, and plan of care. Objective - Vital Signs Vital signs: Vital Signs Temp 97.8 F 02/05/23 07:07 Pulse 82 02/05/23 07:07 Resp 19 02/05/23 07:07 BP 111/68 02/05/23 07:07 Pulse Ox 98 02/05/23 07:07 FiO2 Intake & Output 02/04/23 02/05/23 02/05/23 18:59 06:59 18:59 Intake Total 1850 0 200 Output Total 535 200 Balance 1850 -535 0 Intake: IV 1850 0 Intake, IV Titration 200 Amount ACETAMINOPHEN IV (For NPO 100 ) 1,000 mg In Empty Bag 1 bag @ 400 mls/hr IVPB Q6H [facility] Rx#:[id number] metroNIDAZOLE-NS PMX 500 100 mg In Saline 1 100ml.bag @ 100 mls/hr IVPB Q8H [facility] Rx#:[id number] Output: Urine 485 200 Estimated Blood Loss 50 Other: Voiding Method Indwelling Catheter Indwelling Catheter # Voids 2 - Labs CBC & Chem 7: 02/05/23 05:41 02/05/23 05:41 Labs: Abnormal Lab Results - Last 24 Hours (Table) 02/05/23 02/05/23 Range/Units 05:41 05:41 WBC 11.26 H (4.50-10.00) X 10*3/uL RBC 4.04 L (4.10-5.20) X 10*6/uL Hgb 11.6 L (12.0-15.0) g/dL Hct 35.9 L (37.2-46.3) % RDW 14.6 H (11.5-14.5) % Neutrophils # 9.65 H (1.80-7.70) X 10*3/uL Lymphocytes # 0.64 L (0.90-5.00) X 10*3/uL Eosinophils # 0 L (0.04-0.35) X 10*3/uL BUN/Creatinine Ratio 26.14 H (12.00-20.00) Ratio Glucose 180 H (70-110) mg/dL AST 8 L (13-35) U/L Total Protein 5.4 L (6.2-8.2) g/dL Albumin 3.0 L (3.8-4.9) g/dL Albumin/Globulin Ratio 1.25 L (1.60-3.17) Ratio Microbiology - Last 24 Hours (Table) 02/04/23 18:53 Gram Stain - Preliminary Abdomen 02/04/23 18:53 Gram Stain - Preliminary Appendix
--- NOTE | 2023-02-05 20:05 | PN ---
PROGRESS NOTE DATE OF SERVICE: 02/05/2023 SUBJECTIVE: This is a 67-year-old woman, who was admitted with abdominal perforation, had surgery and sigmoid perforation also. The patient was also found to have apparently perforated appendicitis. The patient had a pelvic abscess. The patient underwent sigmoid resection and descending colostomy also. The patient is being closely monitored. The patient still has some pain, but much better. PAST MEDICAL HISTORY: Reviewed. REVIEW OF SYSTEMS: Fourteen-point review is negative except as mentioned earlier. CURRENT MEDICATIONS: Reviewed include IV Zosyn. Rest of the medications are noted. PHYSICAL EXAMINATION: VITAL SIGNS: Pulse is 86, blood pressure 120/73, respirations 15. HEENT: Conjunctivae are normal. NECK: No jugular venous distention. CARDIOVASCULAR: S1 and S2 muffled. RESPIRATORY: Breath sounds diminished at the bases. ABDOMEN: Soft. Status post surgery. LEGS: No edema. NERVOUS SYSTEM: Nonfocal. LABORATORY DATA: WBC 11.6. Other labs are noted. ASSESSMENT: 1. Possibly early sepsis. 2. Acute abdominal pain with acute abdominal perforation, perforated appendicitis, and pelvic abscess, status post exploratory laparotomy, sigmoid resection, and diverting colostomy. 3. Diffuse inflammatory changes and collection of fluid in the CAT scan. 4. Hypertension. 5. Severe pain. 6. Increased WBC. RECOMMENDATIONS: Recommend to continue current medical management. Continue symptomatic treatment. Continue with antibiotics. Repeat labs. Incentive spirometry. DVT prophylaxis. See orders for the details. Prognosis is guarded. Further recommendations to follow. MMODL / IJN: [id number] /
[2023-02-06] MEDS: HYDROmorphone 1 MG/ML 1 ML SYRINGE IVP PRN ×4 (01:45→18:36)
[2023-02-06] MEDS: metroNIDAZOLE-NS PMX 500 MG in SALINE 1 100ML.BAG IVPB SCH ×3 (01:45→17:14)
[2023-02-06] MEDS: SODIUM CHLORIDE 0.9% 1,000 ML IV SCH ×2 (03:00→21:28)
[2023-02-06] MEDS: PIPERACILLIN-TAZOBACTAM 3.375 GM in SODIUM CHLORIDE 0.9% 100 ML IVPB SCH ×3 (05:54→21:28)
[2023-02-06] MEDS: ONDANSETRON 4 MG/2 ML VIAL IVP SCH ×3 (05:54→17:14)
[2023-02-06] MEDS: HEPARIN SODIUM,PORCINE 5,000 UNIT/ML 1 ML VIAL SQ SCH ×2 (08:31→21:27)
[2023-02-06] MEDS: PANTOPRAZOLE 40 MG/10 ML VIAL IVP SCH ×2 (08:31→21:27)
--- NOTE | 2023-02-06 08:54 | P.CONS ---
History of Present Illness - Reason for Consult Consult date: 02/04/23 Sepsis Requesting physician: Flor Aguilar - Chief Complaint Abdominal pain x few days - History of Present Illness Patient is a 67-year-old female with a past medical history significant for hypertension presenting to the hospital for abdominal pain the patient's symptom has been going on for about a day before presentation to the hospital patient was describing the pain to be moderate to severe without any radiation did have some nausea but no vomiting did have constipation did have some chills on presentation to the hospital the patient did have a low-grade fever 100.7 F, patient was tachycardic but not hypotensive mildly hypoxic requiring supplemental oxygen patient did have a white count of 11.26 this morning creatinine 0.9, liver enzymes are normal urine is mildly positive patient did have a CT of abdominal pelvis abnormal appearance of the right lower quadrant and upper pelvis with extensive inflammatory changes and multiple foci of extraluminal gas highly concerning for perforated viscus patient was evaluated by general surgery and the patient was taken to the OR last evening patient did have evidence of perforated appendicitis with pelvic abscess and sigmoid diverticulitis s/p descending colostomy abdominal culture has been obtained patient has been started on Zosyn infectious disease consulted for further management of antibiotic therapy Review of Systems Positive point and negatives has been mentioned in the HPI, complete review of systems was performed and all other systems are negative Past Medical History Past Medical History: Hypertension History of Any Multi-Drug Resistant Organisms: None Reported Past Surgical History: No Surgical Hx Reported Past Psychological History: No Psychological Hx Reported Smoking Status: Never smoker Past Alcohol Use History: None Reported Past Drug Use History: None Reported Medications and Allergies Home Medications Medication Instructions Recorded Confirmed Type Bisoprolol-Hctz 5-6.25 mg [Ziac 1 tab PO HS 02/04/23 02/04/23 History 5-6.25 MG] Bromelain 1 tab PO DAILY 02/04/23 02/04/23 History Cetirizine HCl/Pseudoephedrine 1 tab PO BID 02/04/23 02/04/23 History [Cetirizine-Pse ER 5-120 mg Tab] Magnesium(Unknown Dose) 1 tab PO DAILY 02/04/23 02/04/23 History Multivit-Min/FA/Lycopen/Lutein 1 tab PO DAILY 02/04/23 02/04/23 History [Centrum Silver Tablet] Vitamin C(Unknown Dose) 1 tab PO DAILY 02/04/23 02/04/23 History Vitamin D(Unknown Dose) 1 tab PO DAILY 02/04/23 02/04/23 History amLODIPine [Norvasc] 5 mg PO HS 02/04/23 02/04/23 History Allergies Allergy/AdvReac Type Severity Reaction Status Date / Time Sulfa (Sulfonamide Allergy Unknown Verified 02/04/23 11:01 Antibiotics) Childhood Physical Exam Vitals: Vital Signs Temp Pulse Pulse Resp BP BP Pulse Ox 02/04/23 10:49 99.7 F H 02/04/23 07:40 120 H 17 02/04/23 07:17 100.7 F H 120 H 17 148/80 97 02/04/23 01:33 98.1 F 107 H 16 123/73 95 02/03/23 23:24 93 18 142/83 94 L 02/03/23 18:14 97.6 F 116 H 18 146/83 99 Intake and Output 02/03/23 02/04/23 02/04/23 22:59 06:59 14:59 Other: Weight 77.111 kg 77.111 kg GENERAL DESCRIPTION: Elderly female lying in bed, no distress. No tachypnea or accessory muscle of respiration use. HEENT: Shows Pallor , no scleral icterus. Oral mucous membrane is dry. No pharyngeal erythema or thrush NECK: Trachea central, no thyromegaly. LUNGS: Unlabored breathing. Clear to auscultation anteriorly. No wheeze or crackle. HEART: S1, S2, regular rate and rhythm. No loud murmur ABDOMEN: Soft, mild distention and tenderness EXTREMITIES: No edema of feet. SKIN: No rash, no masses palpable. NEUROLOGICAL: The patient is awake, alert, oriented x3, mood and affect normal. Results CBC & Chem 7: 02/05/23 05:41 02/05/23 05:41 Labs: Abnormal Lab Results - Last 24 Hours (Table) 02/03/23 02/03/23 02/04/23 Range/Units 18:34 23:22 07:27 Neutrophils # 8.8 H (1.3-7.7) k/uL Lymphocytes # 0.8 L (1.0-4.8) k/uL BUN 26 H (7-17) mg/dL Glucose 158 H (74-99) mg/dL Total Protein 9.2 H (6.3-8.2) g/dL Urine Protein 1+ H (Negative) Urine Ketones 1+ H (Negative) Urine Blood Large H (Negative) Ur Leukocyte Esterase Trace H (Negative) Urine RBC 22 H (0-5) /hpf Urine WBC 10 H (0-5) /hpf Hyaline Casts 7 H (0-2) /lpf Assessment and Plan (1) Sepsis Current Visit: Yes Status: Acute Code(s): A41.9 - SEPSIS, UNSPECIFIED ORGANISM SNOMED Code(s): 65064491 (2) Ruptured appendicitis Current Visit: Yes Status: Acute Code(s): K35.32 - AC APPENDICITIS W PERF, LOC PERITONITIS, & GANGR, W/O ABSCS SNOMED Code(s): 72636441 (3) Pelvic abscess Current Visit: Yes Status: Acute Code(s): OQW6807 - SNOMED Code(s): 111286123 Plan: 1patient presented to hospital with sepsis in this patient did have a fever tachycardia elevated white count source is ruptured appendicitis with pelvic abscess in this patient who status post laparotomy drainage of the abscess and colostomy will need to cover for the enteric gram-negative border of the shweta erobes 2Zosyn 3.375 g every 8 hours to continue while waiting for the culture to finalize We will follow on clinical condition and cultures to further adjust medication if needed Thank you for this consultation we will follow the patient along with you Dictation was produced using [employer] dictation software. please excuse any grammatical, word or spelling errors.
[2023-02-06 11:10] LABS: ALT 11 U/L (8-44); AST 10 U/L (13-35); Albumin 2.9 g/dL (3.8-4.9); Albumin/Globulin Ratio 1.07 Ratio (1.60-3.17); Alkaline Phosphatase 55 U/L (41-126); Carbon Dioxide 24.8 mmol/L (21.6-31.8); Chloride 105 mmol/L (96-109); Globulin 2.7 g/dL (1.6-3.3); Glucose 93 mg/dL (70-110); Potassium 4.4 mmol/L (3.5-5.5); Sodium 139 mmol/L (135-145); Total Bilirubin 0.3 mg/dL (0.3-1.2); Total Protein 5.6 g/dL (6.2-8.2)
[2023-02-06 11:53] LABS: Basophils # (A) 0.02 X 10*3/uL (0.00-0.10); Basophils % (A) 0.2 %; Eosinophils # (A) 0.04 X 10*3/uL (0.04-0.35); Eosinophils % (A) 0.4 %; HCT 33.3 % (37.2-46.3); HGB 10.8 g/dL (12.0-15.0); Lymphocytes # (A) 1.07 X 10*3/uL (0.90-5.00); Lymphocytes % (A) 9.7 %; MCH 29.1 pg (27.0-32.0); MCHC 32.4 g/dL (32.0-37.0); MCV 89.8 FL (80.0-97.0); Mean Platelet Volume 9.9 FL (9.5-12.2); Monocytes % (A) 8.2 %; NRBC Per 100 WBC 0 X 10*3/uL (0.00-0.01); Neutrophils # (A) 8.94 X 10*3/uL (1.80-7.70); Neutrophils % (A) 81.2 %; Platelet Count 263 X 10*3/uL (140-440); RBC 3.71 X 10*6/uL (4.10-5.20); RDW 14.7 % (11.5-14.5)
--- NOTE | 2023-02-06 13:06 | P.PN ---
Subjective Progress Note Date: 02/06/23 CHIEF COMPLAINT: Abdominal pain HISTORY OF PRESENT ILLNESS: Patient is postop day #2 status post exploratory laparotomy with sigmoid resection for diverticulitis, descending colostomy, open appendectomy for perforated necrotic appendicitis, Mukherjee's procedure, drainage of intra-abdominal abscess, open lysis of adhesions. Patient is sitting up in bed. She does report her pain is controlled. No output from her ostomy yet. She denies any nausea or vomiting. Afebrile. Mildly tachycardic heart rate 103. WBC is 11 Hgb 10.8 platelets 263 sodium 139 potassium is 4.4 creatinine 0.6 RUBEN change and 70 mL serosanguineous output this AM PHYSICAL EXAM: VITAL SIGNS: Reviewed GENERAL: Well-developed in no acute distress. HEENT: No sclera icterus. Extraocular movements grossly intact. Moist buccal mucosa. Head is atraumatic, normocephalic. Hears conversational speech. No nasal drainage. NECK: Supple without lymphadenopathy. CHEST: Non-labored respirations and equal bilateral excursions. CARDIOVASCULAR: Palpable 2+ radial pulses. ABDOMEN: Soft. Mildly distended. Ostomy stoma is pink, serosanguineous output in ostomy bag.Prevana wound VAC intact. RUBEN drain serosanguineous MUSCULOSKELETAL: No clubbing or cyanosis. NEUROLOGIC: No focal or lateralizing signs. Cranial nerves II through XII grossly intact. PSYCH: Appropriate affect. Alert and oriented to person, place and time. SKIN: Well perfused. Good skin turgor. ASSESSMENT: 1. Sigmoid diverticulitis 2. Perforated appendicitis 3. Pelvic abscess 4. Perforated viscus with pneumoperitoneum 5. Sepsis PLAN: -Continue low fiber diet -Add Ensure clear -Discontinue Coulter catheter -Consult outsole caser to arrange home care at discharge -Incentive spirometer ordered -Encouraged patient to ambulate -Continue antibiotics per ID service -Continue pain management -DVT prophylaxis subcu heparin and GI prophylaxis Protonix Physician Corporate General Manager note has been reviewed by physician. Signing provider agrees with the documented findings, assessment, and plan of care. Objective - Vital Signs Vital signs: Vital Signs Temp 98.6 F 02/06/23 07:15 Pulse 103 H 02/06/23 07:15 Resp 18 02/06/23 07:15 BP 135/84 02/06/23 07:15 Pulse Ox 94 L 02/06/23 07:15 FiO2 Intake & Output 02/05/23 02/06/23 02/06/23 18:59 06:59 18:59 Intake Total 800 Output Total 570 600 Balance 230 -600 Intake: Intake, IV Titration 800 Amount ACETAMINOPHEN IV (For NPO 100 ) 1,000 mg In Empty Bag 1 bag @ 400 mls/hr IVPB Q6H [facility] Rx#:[id number] Sodium Chloride 0.9% 1, 600 000 ml @ 60 mls/hr IV . [id number] [facility] Rx#:[id number] metroNIDAZOLE-NS PMX 500 100 mg In Saline 1 100ml.bag @ 100 mls/hr IVPB Q8H [facility] Rx#:[id number] Output: Drainage 70 100 Left Lower Abdomen 70 100 Urine 500 500 Other: Voiding Method Indwelling Catheter Indwelling Catheter - Labs CBC & Chem 7: 02/06/23 06:19 02/06/23 06:19 Labs: Abnormal Lab Results - Last 24 Hours (Table) 02/06/23 02/06/23 Range/Units 06:19 06:19 WBC 11.00 H (4.50-10.00) X 10*3/uL RBC 3.71 L (4.10-5.20) X 10*6/uL Hgb 10.8 L (12.0-15.0) g/dL Hct 33.3 L (37.2-46.3) % RDW 14.7 H (11.5-14.5) % Neutrophils # 8.94 H (1.80-7.70) X 10*3/uL BUN/Creatinine Ratio 25.00 H (12.00-20.00) Ratio AST 10 L (13-35) U/L Total Protein 5.6 L (6.2-8.2) g/dL Albumin 2.9 L (3.8-4.9) g/dL Albumin/Globulin Ratio 1.07 L (1.60-3.17) Ratio Microbiology - Last 24 Hours (Table) 02/04/23 18:53 Gram Stain - Preliminary Appendix Wound Culture - Preliminary 02/04/23 18:53 Gram Stain - Preliminary Abdomen Wound Culture - Preliminary
--- NOTE | 2023-02-06 15:03 | P.PN ---
Subjective Progress Note Date: 02/06/23 Principal diagnosis: Reason for follow-up is ruptured appendicitis and pelvic abscess Patient is a 67-year-old female with a past medical history significant for hypertension presenting to the hospital for abdominal pain, patient has been diagnosed with a perforated appendicitis with pelvic abscess and diverticulitis status post laparotomy and diverting colostomy On today's evaluation that is 02/06/2023, the patient continues to be afebrile and is breathing comfortably on 2 L nasal cannula oxygen, and patient denies any shortness of breath, chest pain, did have occasional cough but no sputum production, patient denies nausea/vomiting /diarrhea however complaining of abdominal pain. Patient did have a white count of 11.0, creatinine is 0.6, abdominal cultures pending Objective - Vital Signs Vital signs: Vital Signs Temp 98.4 F 02/06/23 13:44 Pulse 103 H 02/06/23 07:15 Resp 18 02/06/23 07:15 BP 135/84 02/06/23 07:15 Pulse Ox 94 L 02/06/23 07:15 FiO2 Intake & Output 02/05/23 02/06/23 02/06/23 18:59 06:59 18:59 Intake Total 800 Output Total 570 600 Balance 230 -600 Intake: Intake, IV Titration 800 Amount ACETAMINOPHEN IV (For NPO 100 ) 1,000 mg In Empty Bag 1 bag @ 400 mls/hr IVPB Q6H [facility] Rx#:[id number] Sodium Chloride 0.9% 1, 600 000 ml @ 60 mls/hr IV . [id number] [facility] Rx#:[id number] PMX 500 100 mg In Saline 1 100ml.bag @ 100 mls/hr IVPB Q8H [facility] Rx#:[id number] Output: Drainage 70 100 Left Lower Abdomen 70 100 Urine 500 500 Other: Voiding Method Indwelling Catheter Indwelling Catheter - Exam GENERAL DESCRIPTION: An elderly female lying in bed in no distress RESPIRATORY SYSTEM: Unlabored breathing , clear to auscultation anteriorly HEART: S1 S2 regular rate and rhythm , ABDOMEN: Soft mild distention and tenderness EXTREMITIES: No edema feet - Labs CBC & Chem 7: 02/06/23 06:19 02/06/23 06:19 Labs: Abnormal Lab Results - Last 24 Hours (Table) 12/05/23 12/05/23 Range/Units 06:19 06:19 WBC 11.00 H (4.50-10.00) X 10*3/uL RBC 3.71 L (4.10-5.20) X 10*6/uL Hgb 10.8 L (12.0-15.0) g/dL Hct 33.3 L (37.2-46.3) % RDW 14.7 H (11.5-14.5) % Neutrophils # 8.94 H (1.80-7.70) X 10*3/uL BUN/Creatinine Ratio 25.00 H (12.00-20.00) Ratio AST 10 L (13-35) U/L Total Protein 5.6 L (6.2-8.2) g/dL Albumin 2.9 L (3.8-4.9) g/dL Albumin/Globulin Ratio 1.07 L (1.60-3.17) Ratio Microbiology - Last 24 Hours (Table) 02/04/23 18:53 Gram Stain - Preliminary Appendix Wound Culture - Preliminary 02/04/23 18:53 Gram Stain - Preliminary Abdomen Wound Culture - Preliminary Assessment and Plan (1) Sepsis Current Visit: Yes Status: Acute Code(s): A41.9 - SEPSIS, UNSPECIFIED ORGANISM SNOMED Code(s): 60774637 (2) Ruptured appendicitis Current Visit: Yes Status: Acute Code(s): K35.32 - AC APPENDICITIS W PERF, LOC PERITONITIS, & GANGR, W/O ABSCS SNOMED Code(s): 67687858 (3) Pelvic abscess Current Visit: Yes Status: Acute Code(s): NSY0531 - SNOMED Code(s): 875488431 Plan: 1patient presented to hospital with sepsis in this patient did have a fever tachycardia elevated white count source is ruptured appendicitis with pelvic abscess in this patient who status post laparotomy drainage of the abscess and colostomy will need to cover for the enteric gram-negative border of the anaerobes 2patient continue with Zosyn 3.375 g every 8 hours to continue while waiting f or the culture to finalize and monitor clinical course closely Dictation was produced using [employer] dictation software. please excuse any grammatical, word or spelling errors.
[2023-02-06] MEDS ORDERED: DEXTROSE 50% SYRINGE 50 ML IVP PRN ×2 (16:36)
[2023-02-06 16:56] LABS: Glucose,Whole Blood 90 mg/dL (70-110)
[2023-02-06] MEDS: INSULIN ASPART (NovoLOG) 100 UNIT/ML VIAL SQ SCH ×2 (16:59→20:54)
--- NOTE | 2023-02-06 17:47 | PN ---
PROGRESS NOTE DATE OF SERVICE: 02/06/2023 SUBJECTIVE: This is a 67-year-old woman, who was admitted after abdominal perforation and had surgery. The patient is being closely monitored. The patient has minimal abdominal distention. No chest pain. No palpitation. PHYSICAL EXAMINATION: VITAL SIGNS: Pulse is 103, blood pressure 135/84, respirations 18. CHEST: Clear to auscultation. CARDIOVASCULAR: S1 and S2 muffled. ABDOMEN: Soft. Mild diffuse distention. LEGS: No edema. NERVOUS SYSTEM: Nonfocal. LABORATORY DATA: WBC 11. ASSESSMENT: 1. Acute appendiceal perforation with peritonitis, pelvic abscess, exploratory laparotomy, sigmoid resection, and diverting colostomy with early sepsis. 2. Diffuse inflammatory changes and collection of the fluid in the CAT scan. 3. Hypertension. 4. Severe pain. 5. Increased WBC. RECOMMENDATIONS: Recommend to continue current medical management. Continue symptomatic treatment. Continue with IV antibiotics. Otherwise, we will repeat labs in the morning. Follow closely with Surgery. DVT prophylaxis. Further recommendations to follow. MMODL / IJN: [id number] /
[2023-02-06] MEDS: ACETAMINOPHEN TAB 325 MG TAB PO PRN (18:35)
[2023-02-06 20:42] LABS: Glucose,Whole Blood 103 mg/dL (70-110)
[2023-02-07] MEDS: ONDANSETRON 4 MG/2 ML VIAL IVP SCH ×4 (00:57→17:35)
[2023-02-07] MEDS: ACETAMINOPHEN TAB 325 MG TAB PO PRN (01:00)
[2023-02-07] MEDS: metroNIDAZOLE-NS PMX 500 MG in SALINE 1 100ML.BAG IVPB SCH ×3 (01:01→17:34)
[2023-02-07 06:17] LABS: Glucose,Whole Blood 118 mg/dL (70-110)
[2023-02-07] MEDS: INSULIN ASPART (NovoLOG) 100 UNIT/ML VIAL SQ SCH ×4 (06:26→20:11)
[2023-02-07] MEDS: PIPERACILLIN-TAZOBACTAM 3.375 GM in SODIUM CHLORIDE 0.9% 100 ML IVPB SCH ×3 (06:36→21:23)
[2023-02-07] MEDS: HYDROmorphone 1 MG/ML 1 ML SYRINGE IVP PRN ×4 (06:40→21:23)
[2023-02-07] MEDS: PANTOPRAZOLE 40 MG/10 ML VIAL IVP SCH ×2 (08:48→21:22)
[2023-02-07] MEDS: HEPARIN SODIUM,PORCINE 5,000 UNIT/ML 1 ML VIAL SQ SCH ×2 (08:48→21:22)
[2023-02-07 09:43] LABS: Basophils % (A) 0 %; Eosinophils # (A) 0.2 k/uL (0-0.7); Eosinophils % (A) 2 %; HCT 38.9 % (34.0-46.0); HGB 12.5 gm/dL (11.4-16.0); Lymphocytes # (A) 1.2 k/uL (1.0-4.8); Lymphocytes % (A) 12 %; MCHC 32.2 g/dL (31.0-37.0); MCV 90.1 fL (80.0-100.0); Mean Platelet Volume 7.8; Monocytes # (A) 0.8 k/uL (0-1.0); Monocytes % (A) 8 %; Neutrophils # (A) 8.3 k/uL (1.3-7.7); Neutrophils % (A) 77 %; Platelet Count 288 k/uL (150-450); RBC 4.32 m/uL (3.80-5.40); RDW 14.2 % (11.5-15.5); WBC 10.8 k/uL (3.8-10.6)
--- NOTE | 2023-02-07 09:50 | P.PN ---
Subjective Progress Note Date: 02/07/23 CHIEF COMPLAINT: Abdominal pain HISTORY OF PRESENT ILLNESS: Patient is postop day #3 status post exploratory laparotomy with sigmoid resection for diverticulitis, descending colostomy, open appendectomy for perforated necrotic appendicitis, Mukherjee's procedure, drainage of intra-abdominal abscess, open lysis of adhesions. Patient is sitting up in bed. She does report her pain is controlled. No output from her ostomy yet. She denies any nausea or vomiting. Patient has been urinating. Afebrile. Tachycardic heart rate 118 down to 105. WBC 10.8 Hgb 12.5. RUBEN drain 100ml serosanguineous output this AM. PHYSICAL EXAM: VITAL SIGNS: Reviewed GENERAL: Well-developed in no acute distress. HEENT: No sclera icterus. Extraocular movements grossly intact. Moist buccal mucosa. Head is atraumatic, normocephalic. Hears conversational speech. No nasal drainage. NECK: Supple without lymphadenopathy. CHEST: Non-labored respirations and equal bilateral excursions. CARDIOVASCULAR: Palpable 2+ radial pulses. ABDOMEN: Soft. Mildly distended. Ostomy stoma is pink, serosanguineous output in ostomy bag.Prevana wound VAC intact. RUBEN drain serosanguineous. more serous MUSCULOSKELETAL: No clubbing or cyanosis. NEUROLOGIC: No focal or lateralizing signs. Cranial nerves II through XII grossly intact. PSYCH: Appropriate affect. Alert and oriented to person, place and time. SKIN: Well perfused. Good skin turgor. ASSESSMENT: 1. Sigmoid diverticulitis 2. Perforated appendicitis 3. Pelvic abscess 4. Perforated viscus with pneumoperitoneum 5. Sepsis PLAN: -Consult physical therapy -Patient needs to ambulate -Change Tylenol to scheduled for pain management -Continue low fiber diet -Continue Glucerna protein supplement -Consult case technician to arrange home care at discharge -Incentive spirometer ordered -Encouraged patient to ambulate -Continue antibiotics per ID service -DVT prophylaxis subcu heparin and GI prophylaxis Protonix Physician Traveling Nurse note has been reviewed by physician. Signing provider agrees with the documented findings, assessment, and plan of care. Objective - Vital Signs Vital signs: Vital Signs Temp 98.6 F 02/07/23 08:00 Pulse 105 H 02/07/23 08:00 Resp 18 02/07/23 08:00 BP 158/90 02/07/23 08:00 Pulse Ox 92 L 02/07/23 08:00 FiO2 Intake & Output 02/06/23 02/07/23 02/07/23 18:59 06:59 18:59 Output Total 920 170 Balance -920 -170 Output: Drainage 120 170 Left Lower Abdomen 120 170 Urine 800 Uretheral (Coulter) 800 Other: Voiding Method Toilet # Voids 2 1 - Labs CBC & Chem 7: 02/07/23 08:56 02/06/23 06:19 Labs: Abnormal Lab Results - Last 24 Hours (Table) 02/06/23 02/06/23 02/07/23 Range/Units 06:19 06:19 06:15 WBC 11.00 H (4.50-10.00) X 10*3/uL RBC 3.71 L (4.10-5.20) X 10*6/uL Hgb 10.8 L (12.0-15.0) g/dL Hct 33.3 L (37.2-46.3) % RDW 14.7 H (11.5-14.5) % Neutrophils # 8.94 H (1.80-7.70) X 10*3/uL BUN/Creatinine Ratio 25.00 H (12.00-20.00) Ratio POC Glucose (mg/dL) 118 H (70-110) mg/dL AST 10 L (13-35) U/L Total Protein 5.6 L (6.2-8.2) g/dL Albumin 2.9 L (3.8-4.9) g/dL Albumin/Globulin Ratio 1.07 L (1.60-3.17) Ratio 02/07/23 Range/Units 08:56 WBC 10.8 H (4.50-10.00) X 10*3/uL RBC (4.10-5.20) X 10*6/uL Hgb (12.0-15.0) g/dL Hct (37.2-46.3) % RDW (11.5-14.5) % Neutrophils # 8.3 H (1.80-7.70) X 10*3/uL BUN/Creatinine Ratio (12.00-20.00) Ratio POC Glucose (mg/dL) (70-110) mg/dL AST (13-35) U/L Total Protein (6.2-8.2) g/dL Albumin (3.8-4.9) g/dL Albumin/Globulin Ratio (1.60-3.17) Ratio Microbiology - Last 24 Hours (Table) 02/04/23 18:53 Gram Stain - Preliminary Appendix Wound Culture - Preliminary Gram Neg Bacilli 02/04/23 18:53 Gram Stain - Final Abdomen Wound Culture - Final 02/04/23 18:53 Anaerobic Culture - Preliminary Abdomen 02/04/23 18:53 Anaerobic Culture - Preliminary Appendix
[2023-02-07 09:59] LABS: ALT 18 U/L (4-34); AST 26 U/L (14-36); African American GFR (CKD) >90 (>60 ml/min/1.73 sqM); Albumin 2.8 g/dL (3.5-5.0); Alkaline Phosphatase 60 U/L (38-126); Anion Gap 10 mmol/L; Blood Urea Nitrogen 16 mg/dL (7-17); Calcium 8.5 mg/dL (8.4-10.2); Carbon Dioxide 26 mmol/L (22-30); Chloride 102 mmol/L (98-107); Globulin 2.8 g/dL; Glucose 127 mg/dL (74-99); Non-African American GFR(CKD) >90 (>60 ml/min/1.73 sqM); Potassium 4.3 mmol/L (3.5-5.1); Sodium 138 mmol/L (137-145); Total Bilirubin 0.5 mg/dL (0.2-1.3); Total Protein 5.6 g/dL (6.3-8.2)
[2023-02-07 11:18] LABS: Glucose,Whole Blood 108 mg/dL (70-110)
[2023-02-07] MEDS: ACETAMINOPHEN TAB 500 MG TAB PO SCH ×2 (11:54→17:35)
--- NOTE | 2023-02-07 13:44 | PN ---
PROGRESS NOTE DATE OF SERVICE: 02/07/2023 SUBJECTIVE: This is a 67-year-old woman, who was admitted with acute appendiceal perforation. She is improving significantly. No chest pain. No palpitation. White count is 10.8. PHYSICAL EXAMINATION: VITAL SIGNS: Pulse is 105, blood pressure 158/90, respirations 18. CHEST: Clear to auscultation. CARDIOVASCULAR: S1 and S2 normal. ABDOMEN: Soft. Status post surgery. LABORATORY DATA: Reviewed. ASSESSMENT: 1. Acute appendiceal perforation with peritonitis, pelvic abscess, exploratory laparotomy, sigmoid resection, diverting colostomy, and early sepsis. 2. Diffuse inflammatory changes and collection of fluid in the CAT scan. 3. Hypertension. 4. Severe pain, improving. 5. Increased WBC. RECOMMENDATIONS: Recommend to continue current medical management. Continue symptomatic treatment. Recommend repeat labs. Closely follow with Surgery. Broad-spectrum IV antibiotics. Infectious Disease. The cultures are showing gram-negative bacilli. We will continue to monitor. Further recommendations to follow. MMODL / IJN: [id number] /
[2023-02-07 16:43] LABS: Glucose,Whole Blood 142 mg/dL (70-110)
[2023-02-07] MEDS: SODIUM CHLORIDE 0.9% 1,000 ML IV SCH (19:36)
[2023-02-07 19:56] LABS: Glucose,Whole Blood 149 mg/dL (70-110)
[2023-02-07] MEDS: BISOPROLOL-HCTZ 5-6.25 MG 1 EACH TAB PO SCH (21:22)
[2023-02-07] MEDS: amLODIPine 5 MG TAB PO SCH (21:22)
[2023-02-08] MEDS: ONDANSETRON 4 MG/2 ML VIAL IVP SCH ×4 (01:11→17:31)
[2023-02-08] MEDS: ACETAMINOPHEN TAB 500 MG TAB PO SCH ×5 (01:11→23:20)
[2023-02-08] MEDS: metroNIDAZOLE-NS PMX 500 MG in SALINE 1 100ML.BAG IVPB SCH ×3 (01:12→17:26)
[2023-02-08 05:26] LABS: Glucose,Whole Blood 145 mg/dL (70-110)
[2023-02-08] MEDS: INSULIN ASPART (NovoLOG) 100 UNIT/ML VIAL SQ SCH ×4 (05:29→21:07)
[2023-02-08] MEDS: SODIUM CHLORIDE 0.9% 1,000 ML IV SCH (05:41)
[2023-02-08] MEDS: PIPERACILLIN-TAZOBACTAM 3.375 GM in SODIUM CHLORIDE 0.9% 100 ML IVPB SCH ×3 (05:43→23:20)
[2023-02-08] MEDS: HEPARIN SODIUM,PORCINE 5,000 UNIT/ML 1 ML VIAL SQ SCH ×2 (09:10→21:18)
[2023-02-08] MEDS: PANTOPRAZOLE 40 MG/10 ML VIAL IVP SCH ×2 (09:10→21:17)
--- NOTE | 2023-02-08 10:41 | P.PN ---
Subjective Progress Note Date: 02/08/23 CHIEF COMPLAINT: Abdominal pain HISTORY OF PRESENT ILLNESS: Patient is postop day #4 status post exploratory laparotomy with sigmoid resection for diverticulitis, descending colostomy, open appendectomy for perforated necrotic appendicitis, Mukherjee's procedure, drainage of intra-abdominal abscess, open lysis of adhesions. Still no stool output from ostomy. Patient denies any nausea or vomiting. She is tolerating low fiber diet. Pain is controlled. Afebrile. Tachycardia improved heart rate 86. Denies any distal urinating. She was able to ambulate in her room. Labs pending. Culture growing Pseudomonas. Patient complaining of ALLERGY and nasal congestion. RUBEN drain with 300 mL serosanguineous output last night and 140ml this morning PHYSICAL EXAM: VITAL SIGNS: Reviewed GENERAL: Well-developed in no acute distress. HEENT: No sclera icterus. Extraocular movements grossly intact. Moist buccal mucosa. Head is atraumatic, normocephalic. Hears conversational speech. No nasal drainag e. NECK: Supple without lymphadenopathy. CHEST: Non-labored respirations and equal bilateral excursions. CARDIOVASCULAR: Palpable 2+ radial pulses. ABDOMEN: Soft. Mildly distended. Ostomy stoma is pink, serosanguineous output in ostomy bag. Prevana wound VAC intact. RUBEN drain serosanguineous MUSCULOSKELETAL: No clubbing or cyanosis. NEUROLOGIC: No focal or lateralizing signs. Cranial nerves II through XII grossly intact. PSYCH: Appropriate affect. Alert and oriented to person, place and time. SKIN: Well perfused. Good skin turgor. ASSESSMENT: 1. Sigmoid diverticulitis 2. Perforated appendicitis 3. Pelvic abscess 4. Perforated viscus with pneumoperitoneum 5. Sepsis PLAN: -Flonase ordered for nasal congestion. Continue Claritin as needed. -Encouraged patient to ambulate in the hallway -Continue pain management -Continue low fiber diet -Continue Glucerna protein supplement -Consult porter sample case to arrange home care at discharge -Incentive spirometer ordered -Encouraged patient to ambulate -Continue IV fluids -Continue antibiotics per ID service -DVT prophylaxis subcu heparin and GI prophylaxis Protonix Physician Junior Technical Writer note has been reviewed by physician. Signing provider agrees with the documented findings, assessment, and plan of care. CHIEF COMPLAINT: Peritonitis HISTORY OF PRESENT ILLNESS: The patient is a 67-year-old status post Mukherjee's procedure and appendectomy for perforated viscus. Reports no bowel activity from ostomy. She is tolerating diet. She denies abdominal pain. He is tolerating low fiber diet. ROS: No reports of nausea and vomiting. No bowel movements. No fevers or chills. No new chest pain. No productive sputum PHYSICAL EXAM: VITAL SIGNS: Reviewed CONSTITUTIONAL: Well developed and in no acute distress. EYES: Conjuctivae without sclera icterus. Extraocular movements grossly intact. HEAD, EARS, NOSE, THROAT: Moist buccal mucosa. Head is atraumatic, normocephalic. Hears conversational speech. No nasal drainage. RESPIRATORY: Non-labored respirations and equal bilateral excursions. CARDIOVASCULAR: Palpable 2+ radial pulses. ABDOMEN: Ostomy intact. Dressing intact. Abiodun-Enriquez drains hears. MUSCULOSKELETAL: No gross deformity of the lower extremities noted. No clubbing. No cyanosis. SKIN: Good skin turgor. Well perfused. NEUROLOGIC: Cranial nerves II through XII grossly intact. No focal or lateralizing signs. PSYCH: Appropriate affect. Alert and oriented to person, place and time. CLINICAL LABS: Reviewed. WBC normal. Hemoglobin 11.3, anemia ASSESSMENT: 1. Perforated viscus 2. Perforated appendicitis 3. Peritonitis 4. Diverticulitis 5. Descending colostomy 6. Chronic constipation PLAN: 1. Recommend single-dose lactulose due to chronic constipation present preoperatively 2. Antibiotic management per infectious disease 3. Anticipated disposition in 5 days 4. Continue antibiotics Objective - Vital Signs Vital signs: Vital Signs Temp 98.2 F 02/08/23 07:09 Pulse 86 02/08/23 09:11 Resp 17 02/08/23 09:11 BP 123/75 02/08/23 07:09 Pulse Ox 93 L 02/08/23 07:09 FiO2 Intake & Output 02/07/23 02/08/23 02/08/23 18:59 06:59 18:59 Output Total 260 220 40 Balance -260 -220 -40 Output: Gastric Drainage 20 Drainage 260 200 40 Left Lower Abdomen 260 200 40 Other: Voiding Method Toilet Toilet Toilet # Voids 2 - Labs CBC & Chem 7: 02/08/23 06:44 02/08/23 06:44 Labs: Abnormal Lab Results - Last 24 Hours (Table) 02/07/23 02/07/23 02/07/23 Range/Units 08:56 16:41 19:56 POC Glucose (mg/dL) 142 H 149 H (70-110) mg/dL Hemoglobin A1c 6.4 H (<=6.0) % 02/08/23 Range/Units 05:25 POC Glucose (mg/dL) 145 H (70-110) mg/dL Hemoglobin A1c (<=6.0) % Microbiology - Last 24 Hours (Table) 02/04/23 18:53 Gram Stain - Final Appendix Wound Culture - Final Pseudomonas fluorescens/putida
[2023-02-08 11:09] LABS: Basophils # (A) 0.09 X 10*3/uL (0.00-0.10); Eosinophils # (A) 0.36 X 10*3/uL (0.04-0.35); Eosinophils % (A) 4.1 %; HCT 34.7 % (37.2-46.3); HGB 11.3 g/dL (12.0-15.0); Lymphocytes # (A) 1.43 X 10*3/uL (0.90-5.00); Lymphocytes % (A) 16.3 %; MCHC 32.6 g/dL (32.0-37.0); MCV 89.2 FL (80.0-97.0); Mean Platelet Volume 9.5 FL (9.5-12.2); Monocytes # (A) 0.91 X 10*3/uL (0.20-1.00); Monocytes % (A) 10.4 %; NRBC Per 100 WBC 0 X 10*3/uL (0.00-0.01); Neutrophils # (A) 5.79 X 10*3/uL (1.80-7.70); Neutrophils % (A) 66.3 %; Platelet Count 307 X 10*3/uL (140-440); RBC 3.89 X 10*6/uL (4.10-5.20); RDW 14.6 % (11.5-14.5); WBC 8.75 X 10*3/uL (4.50-10.00)
[2023-02-08 11:33] LABS: Glucose,Whole Blood 147 mg/dL (70-110)
[2023-02-08] MEDS: FLUTICASONE 50MCG/SPRAY NASAL 16GM EA NOSTRIL SCH (11:33)
[2023-02-08 11:42] LABS: Blood Urea Nitrogen 11.8 mg/dL (9.0-27.0); Calcium 8.6 mg/dL (8.7-10.3); Carbon Dioxide 27.2 mmol/L (21.6-31.8); Chloride 102 mmol/L (96-109); Glucose 146 mg/dL (70-110); Potassium 3.8 mmol/L (3.5-5.5); Sodium 137 mmol/L (135-145)
[2023-02-08 12:38] VITALS: BMI 26.6
[2023-02-08] MEDS ORDERED: LACTULOSE 20 GM/30 ML CUP PO ONE (12:45)
[2023-02-08] MEDS: HYDROmorphone 1 MG/ML 1 ML SYRINGE IVP PRN ×2 (15:48→21:17)
[2023-02-08] MEDS: LORATADINE 10 MG TAB PO PRN (15:53)
--- NOTE | 2023-02-08 16:36 | P.PN ---
Subjective Progress Note Date: 02/07/23 Principal diagnosis: Reason for follow-up is ruptured appendicitis and pelvic abscess Patient is a 67-year-old female with a past medical history significant for hypertension presenting to the hospital for abdominal pain, patient has been diagnosed with a perforated appendicitis with pelvic abscess and diverticulitis status post laparotomy and diverting colostomy On today's evaluation that is 02/07/2023 the patient remains to be afebrile, the patient is breathing comfortably on room air and no need for supplemental oxygen, the patient denies having any chest pain or cough and no sputum production, patient denies nausea vomiting didn't have any bowel movement yet abdominal pain and discomfort has slightly decreased intensity Patient did have a white count of 10.8, creatinine is 0.47, abdominal cultures pending Objective - Vital Signs Vital signs: Vital Signs Temp 98.6 F 02/07/23 08:00 Pulse 105 H 02/07/23 08:47 Resp 18 02/07/23 08:47 BP 158/90 02/07/23 08:00 Pulse Ox 92 L 02/07/23 08:00 FiO2 Intake & Output 02/06/23 02/07/23 02/07/23 18:59 06:59 18:59 Output Total 920 170 Balance -920 -170 Output: Drainage 120 170 Left Lower Abdomen 120 170 Urine 800 Uretheral (Coulter) 800 Other: Voiding Method Toilet Toilet # Voids 2 1 - Exam GENERAL DESCRIPTION: An elderly female lying in bed in no distress RESPIRATORY SYSTEM: Unlabored breathing , clear to auscultation anteriorly HEART: S1 S2 regular rate and rhythm , ABDOMEN: Soft mild distention and tenderness EXTREMITIES: No edema feet - Labs CBC & Chem 7: 02/08/23 06:44 02/08/23 06:44 Labs: Abnormal Lab Results - Last 24 Hours (Table) 02/07/23 02/07/23 02/07/23 Range/Units 06:15 08:56 08:56 WBC 10.8 H (3.8-10.6) k/uL Neutrophils # 8.3 H (1.3-7.7) k/uL Creatinine 0.47 L (0.52-1.04) mg/dL Glucose 127 H (74-99) mg/dL POC Glucose (mg/dL) 118 H (70-110) mg/dL Total Protein 5.6 L (6.3-8.2) g/dL Albumin 2.8 L (3.5-5.0) g/dL Microbiology - Last 24 Hours (Table) 02/04/23 18:53 Gram Stain - Preliminary Appendix Wound Culture - Preliminary Gram Neg Bacilli 02/04/23 18:53 Gram Stain - Final Abdomen Wound Culture - Final 02/04/23 18:53 Anaerobic Culture - Preliminary Abdomen 02/04/23 18:53 Anaerobic Culture - Preliminary Appendix Assessment and Plan (1) Sepsis Current Visit: Yes Status: Acute Code(s): A41.9 - SEPSIS, UNSPECIFIED ORGANISM SNOMED Code(s): 79004986 (2) Ruptured appendicitis Current Visit: Yes Status: Acute Code(s): K35.32 - AC APPENDICITIS W PERF, LOC PERITONITIS, & GANGR, W/O ABSCS SNOMED Code(s): 76405219 (3) Pelvic abscess Current Visit: Yes Status: Acute Code(s): DOA1002 - SNOMED Code(s): 441097308 Plan: 1patient presented to hospital with sepsis in this patient did have a fever t achycardia elevated white count source is ruptured appendicitis with pelvic abscess in this patient who status post laparotomy drainage of the abscess and colostomy will need to cover for the enteric gram-negative border of the anaerobes 2patient did have some clinical improvement and will continue with Zosyn 3.375 g every 8 hours to continue while waiting for the culture to finalize and monitor clinical course closely Dictation was produced using [employer] dictation software. please excuse any g rammatical, word or spelling errors.
--- NOTE | 2023-02-08 16:38 | P.PN ---
Subjective Progress Note Date: 02/08/23 Principal diagnosis: Reason for follow-up is ruptured appendicitis and pelvic abscess Patient is a 67-year-old female with a past medical history significant for hypertension presenting to the hospital for abdominal pain, patient has been diagnosed with a perforated appendicitis with pelvic abscess and diverticulitis status post laparotomy and diverting colostomy On today's evaluation that is 02/08/2023, the patient continues to be afebrile and is breathing comfortably on room air, and patient denies any shortness of breath, chest pain and no cough or sputum production, patient abdominal discomfort has decreased in intensity and did have output in her colostomy bag Patient did have a white count has normalized to 8.75, creatinine 0.4, abdominal cultures with Pseudomonas that is sensitive to Cipro Objective - Vital Signs Vital signs: Vital Signs Temp 98.2 F 02/08/23 07:09 Pulse 86 02/08/23 09:11 Resp 17 02/08/23 09:11 BP 123/75 02/08/23 07:09 Pulse Ox 93 L 02/08/23 07:09 FiO2 Intake & Output 02/07/23 02/08/23 02/08/23 18:59 06:59 18:59 Output Total 260 220 40 Balance -260 -220 -40 Output: Gastric Drainage 20 Drainage 260 200 40 Left Lower Abdomen 260 200 40 Other: Voiding Method Toilet Toilet Toilet # Voids 2 - Exam GENERAL DESCRIPTION: An elderly female lying in bed in no distress RESPIRATORY SYSTEM: Unlabored breathing , clear to auscultation anteriorly HEART: S1 S2 regular rate and rhythm , ABDOMEN: Soft mild distention and tenderness EXTREMITIES: No edema feet - Labs CBC & Chem 7: 02/08/23 06:44 02/08/23 06:44 Labs: Abnormal Lab Results - Last 24 Hours (Table) 02/07/23 02/07/23 02/07/23 Range/Units 08:56 16:41 19:56 POC Glucose (mg/dL) 142 H 149 H (70-110) mg/dL Hemoglobin A1c 6.4 H (<=6.0) % 02/08/23 Range/Units 05:25 POC Glucose (mg/dL) 145 H (70-110) mg/dL Hemoglobin A1c (<=6.0) % Microbiology - Last 24 Hours (Table) 02/04/23 18:53 Gram Stain - Final Appendix Wound Culture - Final Pseudomonas fluorescens/putida Assessment and Plan (1) Sepsis Current Visit: Yes Status: Acute Code(s): A41.9 - SEPSIS, UNSPECIFIED ORGANISM SNOMED Code(s): 90211082 (2) Ruptured appendicitis Current Visit: Yes Status: Acute Code(s): K35.32 - AC APPENDICITIS W PERF, LOC PERITONITIS, & GANGR, W/O ABSCS SNOMED Code(s): 81856059 (3) Pelvic abscess Current Visit: Yes Status: Acute Code(s): LOC1679 - SNOMED Code(s): 822526302 Plan: 1patient presented to hospital with sepsis in this patient did have a fever tachycardia elevated white count source is ruptured appendicitis with pelvic abscess in this patient who status post laparotomy drainage of the abscess and colostomy will need to cover for the enteric gram-negative border of the anaerobes 2patient has shown clinical improvement and abdominal culture had been finalized with a Pseudomonas that is sensitive to Cipro 3-patient will continue with Zosyn 3.375 g every 8 hours with the plan to finish therapy with oral Cipro and Flagyl Dictation was produced using [employer] dictation software. please excuse any grammatical, word or spelling errors.
[2023-02-08 16:42] LABS: Glucose,Whole Blood 144 mg/dL (70-110)
[2023-02-08 20:26] LABS: Glucose,Whole Blood 134 mg/dL (70-110)
[2023-02-08] MEDS: BISOPROLOL-HCTZ 5-6.25 MG 1 EACH TAB PO SCH (21:17)
[2023-02-08] MEDS: amLODIPine 5 MG TAB PO SCH (21:18)
[2023-02-09] MEDS: ONDANSETRON 4 MG/2 ML VIAL IVP SCH ×4 (00:18→19:02)
[2023-02-09] MEDS: SODIUM CHLORIDE 0.9% 1,000 ML IV SCH ×2 (00:19→14:20)
[2023-02-09] MEDS: metroNIDAZOLE-NS PMX 500 MG in SALINE 1 100ML.BAG IVPB SCH ×3 (01:17→19:02)
[2023-02-09 05:56] LABS: Glucose,Whole Blood 129 mg/dL (70-110)
[2023-02-09] MEDS: PIPERACILLIN-TAZOBACTAM 3.375 GM in SODIUM CHLORIDE 0.9% 100 ML IVPB SCH ×3 (06:19→21:06)
[2023-02-09] MEDS: ACETAMINOPHEN TAB 500 MG TAB PO SCH ×3 (06:20→19:02)
[2023-02-09] MEDS: INSULIN ASPART (NovoLOG) 100 UNIT/ML VIAL SQ SCH ×4 (06:25→21:05)
[2023-02-09] MEDS: HEPARIN SODIUM,PORCINE 5,000 UNIT/ML 1 ML VIAL SQ SCH ×2 (07:45→21:05)
[2023-02-09] MEDS: FLUTICASONE 50MCG/SPRAY NASAL 16GM EA NOSTRIL SCH (07:45)
[2023-02-09] MEDS: PANTOPRAZOLE 40 MG/10 ML VIAL IVP SCH ×2 (07:45→21:05)
--- NOTE | 2023-02-09 10:14 | P.PN ---
Subjective Progress Note Date: 02/08/23 This is a 67-year-old female who was recently admitted with abdominal pain and found to have acute appendiceal perforation with diverticular perforation and being closely monitored. Patient is status post exploratory laparotomy with sigmoid resection, diverting colostomy and being closely monitored. Patient has been advanced in diet per general surgery and tolerating thus far. Patient continues with some bloating and distention and is concerned that she was noted to have previous significant constipation prior to the surgery. Patient has been given a dose of lactulose and is continued on bowel regimen. Patient is currently maintained on antibiotics with infectious disease following closely as cultures are showing Pseudomonas fluorescens with putida. Patient does continue significant weakness and would recommend physical therapy daily and with frequent walks up to 3 times daily as tolerated. Patient is currently afebrile with no reports of chest pain or shortness of breath. Patient is noted to have some output and ostomy and continues of the RUBEN drain as well. Review of systems: Constitutional: No reports of fatigue, fever, or chills Cardiovascular: No reports of chest pain or palpitations Respiratory: No reports of shortness of breath or cough GI: No reports of nausea, no reports of vomiting, reports of some ostomy liquid starting in the ostomy bag : No reports of dysuria or retention Neurovascular: reports of generalized weakness All medications have been reviewed PHYSICAL EXAMINATION: GENERAL: The patient is alert and oriented x4, Well developed, well nourished. HEENT: Pupils are round and equally reacting to light. EOMI. no scleral icterus. No conjunctival pallor. Normocephalic, atraumatic. No pharyngeal erythema. No thyromegaly. CARDIOVASCULAR: S1 and S2 muffled PULMONARY: diminished breath sounds bilaterally with no wheezing or rhonchi noted. ABDOMEN: soft. tender on exam. Mildly, normoactive bowel sounds. No palpable organomegaly. MUSCULOSKELETAL: No joint swelling or deformity. EXTREMITIES: No cyanosis, clubbing, or pedal edema. NEUROLOGICAL: Gross neurological examination did not reveal any focal deficits. Diffuse weakness SKIN: No rashes. Assessment: Acute appendiceal perforation with peritonitis, pelvic abscess, exploratory laparotomy, sigmoid resection with diverting colostomy and early sepsis, present on admission Diffuse inflammatory changes in collection of fluid on the CAT scan with cultures growing Pseudomonas fluoresceins Hypertension Severe pain, improving Leukocytosis secondary to assessment #1 Perforated viscus with pneumoperitoneum GI prophylaxis DVT prophylaxis Full code Plan: Recommend to continue with current medications and management per general surgery and infectious disease. Patient is continued on antibiotics in the form of Flagyl and Zosyn with culture showing Pseudomonas fluorescens with putida. Patient's diet has been advanced and tolerating thus far eating small frequent meals and there is some noted liquid debris in the ostomy with no significant gas yet. Patient does report she feels some cramping in the abdomen and was concerned with severe constipation prior to surgical intervention and was given a dose of lactulose Patient continued on gentle IV hydration and encouraged small frequent meals Continue pain management Home medications reviewed and resumed as appropriate as patient is now tolerating oral intake Encouraged increased activity as tolerated recommend physical therapy daily and frequent walking as tolerated and sitting up in the chair more often Encouraged incentive spirometer use Due to multiple complex medical issues, overall prognosis is guarded at this time No plans for DC until early next week per surgery recommendations given patient's significant surgical findings The impression and plan of care has been dictated by Mansi Mena, nurse practitioner as directed. Dr. Jenelle MD I have performed a history and examination and MDM of this patient, discussed the same with the dictator, and agree with the dictator's assessment and plan as written ,documented as a scribe. Based on total visit time, I have performed more than 50% of the visit. Any additional findings or plans will be noted. Objective - Vital Signs Vital signs: Vital Signs Temp 98.2 F 02/08/23 07:09 Pulse 86 02/08/23 09:11 Resp 17 02/08/23 09:11 BP 123/75 02/08/23 07:09 Pulse Ox 93 L 02/08/23 07:09 FiO2 Intake & Output 02/07/23 02/08/23 02/08/23 18:59 06:59 18:59 Output Total 260 220 40 Balance -260 -220 -40 Output: Gastric Drainage 20 Drainage 260 200 40 Left Lower Abdomen 260 200 40 Other: Voiding Method Toilet Toilet Toilet # Voids 2 - Labs CBC & Chem 7: 02/08/23 06:44 02/08/23 06:44 Labs: Abnormal Lab Results - Last 24 Hours (Table) 02/07/23 02/07/23 02/07/23 Range/Units 08:56 16:41 19:56 RBC (4.10-5.20) X 10*6/uL Hgb (12.0-15.0) g/dL Hct (37.2-46.3) % RDW (11.5-14.5) % Immature Gran # (0.00-0.04) X 10*3/uL Eosinophils # (0.04-0.35) X 10*3/uL Creatinine (0.6-1.5) mg/dL BUN/Creatinine Ratio (12.00-20.00) Ratio Glucose (70-110) mg/dL POC Glucose (mg/dL) 142 H 149 H (70-110) mg/dL Hemoglobin A1c 6.4 H (<=6.0) % Calcium (8.7-10.3) mg/dL 02/08/23 02/08/23 02/08/23 Range/Units 05:25 06:44 06:44 RBC 3.89 L (4.10-5.20) X 10*6/uL Hgb 11.3 L (12.0-15.0) g/dL Hct 34.7 L (37.2-46.3) % RDW 14.6 H (11.5-14.5) % Immature Gran # 0.17 H (0.00-0.04) X 10*3/uL Eosinophils # 0.36 H (0.04-0.35) X 10*3/uL Creatinine 0.4 L (0.6-1.5) mg/dL BUN/Creatinine Ratio 29.50 H (12.00-20.00) Ratio Glucose 146 H (70-110) mg/dL POC Glucose (mg/dL) 145 H (70-110) mg/dL Hemoglobin A1c (<=6.0) % Calcium 8.6 L (8.7-10.3) mg/dL 02/08/23 Range/Units 11:32 RBC (4.10-5.20) X 10*6/uL Hgb (12.0-15.0) g/dL Hct (37.2-46.3) % RDW (11.5-14.5) % Immature Gran # (0.00-0.04) X 10*3/uL Eosinophils # (0.04-0.35) X 10*3/uL Creatinine (0.6-1.5) mg/dL BUN/Creatinine Ratio (12.00-20.00) Ratio Glucose (70-110) mg/dL POC Glucose (mg/dL) 147 H (70-110) mg/dL Hemoglobin A1c (<=6.0) % Calcium (8.7-10.3) mg/dL Microbiology - Last 24 Hours (Table) 02/04/23 18:53 Gram Stain - Final Appendix Wound Culture - Final Pseudomonas fluorescens/putida
[2023-02-09 11:27] LABS: HCT 34.3 % (37.2-46.3); HGB 11.3 g/dL (12.0-15.0); MCH 28.8 pg (27.0-32.0); MCHC 32.9 g/dL (32.0-37.0); MCV 87.5 FL (80.0-97.0); Mean Platelet Volume 9.3 FL (9.5-12.2); NRBC Per 100 WBC 0 X 10*3/uL (0.00-0.01); Platelet Count 309 X 10*3/uL (140-440); RBC 3.92 X 10*6/uL (4.10-5.20); RDW 14.5 % (11.5-14.5); WBC 8.49 X 10*3/uL (4.50-10.00)
[2023-02-09 11:33] LABS: Blood Urea Nitrogen 9.5 mg/dL (9.0-27.0); Calcium 8.5 mg/dL (8.7-10.3); Carbon Dioxide 27.3 mmol/L (21.6-31.8); Chloride 104 mmol/L (96-109); Glucose 135 mg/dL (70-110); Magnesium 1.8 mg/dL (1.5-2.4); Potassium 3.8 mmol/L (3.5-5.5); Sodium 142 mmol/L (135-145)
[2023-02-09 11:51] LABS: Glucose,Whole Blood 130 mg/dL (70-110)
[2023-02-09 13:24] LABS: Neutrophils % (M) 69 %
[2023-02-09 13:25] LABS: Basophils # (M) 0.25 X 10*3/uL (0.00-0.10); Eosinophils # (M) 0.25 X 10*3/uL (0.04-0.35); Lymphocytes # (M) 1.02 X 10*3/uL (0.90-5.00); Monocytes # (M) 0.68 X 10*3/uL (0.20-1.00); Promyelocytes # (M) 0.17 k/uL (0); Promyelocytes % 2 %; RBC Morphology Normal (Normal)
--- NOTE | 2023-02-09 14:38 | P.PN ---
Subjective Progress Note Date: 02/09/23 CHIEF COMPLAINT: Abdominal pain HISTORY OF PRESENT ILLNESS: Patient is postop day #5 status post exploratory laparotomy with sigmoid resection for diverticulitis, descending colostomy, open appendectomy for perforated necrotic appendicitis, Mukherjee's procedure, drainage of intra-abdominal abscess, open lysis of adhesions. Patient received lactulose yesterday. She is now having stool output from her ostomy. She did have some nausea earlier. No vomiting. Pain control. She has been up and ambulating. Afebrile. WBC 8.49 Hgb 11.3 platelets 309 sodium 142 potassium 3.8 creatinine 0.5 PHYSICAL EXAM: VITAL SIGNS: Reviewed GENERAL: Well-developed in no acute distress. HEENT: No sclera icterus. Extraocular movements grossly intact. Moist buccal mucosa. Head is atraumatic, normocephalic. Hears conversational speech. No nasal drainage. NECK: Supple without lymphadenopathy. CHEST: Non-labored respirations and equal bilateral excursions. CARDIOVASCULAR: Palpable 2+ radial pulses. ABDOMEN: Soft. Mildly distended. Ostomy stoma is pink, stool present in ostomy bag. Prevana intact. RUBEN drain service and let us output MUSCULOSKELETAL: No clubbing or cyanosis. NEUROLOGIC: No focal or lateralizing signs. Cranial nerves II through XII grossly intact. PSYCH: Appropriate affect. Alert and oriented to person, place and time. SKIN: Well perfused. Good skin turgor. ASSESSMENT: 1. Sigmoid diverticulitis 2. Perforated appendicitis 3. Pelvic abscess 4. Perforated viscus with pneumoperitoneum 5. Sepsis PLAN: -Continue low fiber diet -Encouraged patient to ambulate in the hallway -Continue pain management -Continue Glucerna protein supplement -Consult field case manager to arrange home care at discharge. Plan for discharge on Sunday -Incentive spirometer ordered -Continue antibiotics per ID service -DVT prophylaxis subcu heparin and GI prophylaxis Protonix Physician Chemical Operator note has been reviewed by physician. Signing provider agrees with the documented findings, assessment, and plan of care. CHIEF COMPLAINT: Peritonitis HISTORY OF PRESENT ILLNESS: The patient is a 67-year-old status post Mukherjee's procedure and appendectomy for perforated viscus. She is passing flatus and having bowel movements through her ostomy. She is ambulating. She is toleratin g a low fiber diet. ROS: No reports of nausea and vomiting. No bowel movements. No fevers or chil ls. No new chest pain. No productive sputum PHYSICAL EXAM: VITAL SIGNS: Reviewed CONSTITUTIONAL: Well developed and in no acute distress. EYES: Conjuctivae without sclera icterus. Extraocular movements grossly intact. HEAD, EARS, NOSE, THROAT: Moist buccal mucosa. Head is atraumatic, normoce phalic. Hears conversational speech. No nasal drainage. RESPIRATORY: Non-labored respirations and equal bilateral excursions. CARDIOVASCULAR: Palpable 2+ radial pulses. ABDOMEN: Ostomy intact. Dressing intact. Abiodun-Enriquez drain serous. MUSCULOSKELETAL: No gross deformity of the lower extremities noted. No clubbing. No cyanosis. SKIN: Good skin turgor. Well perfused. NEUROLOGIC: Cranial nerves II through XII grossly intact. No focal or lateralizing signs. PSYCH: Appropriate affect. Alert and oriented to person, place and time. CLINICAL LABS: Reviewed. WBC normal. MICRO: Pseudomonas ASSESSMENT: 1. Perforated viscus 2. Perforated appendicitis 3. Peritonitis 4. Diverticulitis 5. Descending colostomy 6. Chronic constipation PLAN: 1. Appreciate infectious disease consultation for oral antibiotics upon discharge. 2. Low fiber diet 3. Discontinue incisional wound VAC dressing Sunday with anticipated discharge Sunday 4. Will need ostomy care and teaching. Objective - Vital Signs Vital signs: Vital Signs Temp 98.9 F 02/09/23 13:24 Pulse 73 02/09/23 13:24 Resp 17 02/09/23 13:24 BP 158/85 02/09/23 13:24 Pulse Ox 95 02/09/23 13:24 FiO2 Intake & Output 02/08/23 02/09/23 02/09/23 18:59 06:59 18:59 Output Total 40 100 Balance -40 -100 Weight 77.111 kg Output: Drainage 40 100 Left Lower Abdomen 40 100 Other: Voiding Method Toilet Toilet Toilet # Voids 4 - Labs CBC & Chem 7: 02/09/23 06:45 02/09/23 06:45 Labs: Abnormal Lab Results - Last 24 Hours (Table) 02/08/23 02/08/23 02/09/23 Range/Units 16:40 20:21 05:52 RBC (4.10-5.20) X 10*6/uL Hgb (12.0-15.0) g/dL Hct (37.2-46.3) % MPV (9.5-12.2) FL Basophils # (Manual) (0.00-0.10) X 10*3/uL Creatinine (0.6-1.5) mg/dL Glucose (70-110) mg/dL POC Glucose (mg/dL) 144 H 134 H 129 H (70-110) mg/dL Calcium (8.7-10.3) mg/dL 02/09/23 02/09/23 02/09/23 Range/Units 06:45 06:45 11:50 RBC 3.92 L (4.10-5.20) X 10*6/uL Hgb 11.3 L (12.0-15.0) g/dL Hct 34.3 L (37.2-46.3) % MPV 9.3 L (9.5-12.2) FL Basophils # (Manual) 0.25 H (0.00-0.10) X 10*3/uL Creatinine 0.5 L (0.6-1.5) mg/dL Glucose 135 H (70-110) mg/dL POC Glucose (mg/dL) 130 H (70-110) mg/dL Calcium 8.5 L (8.7-10.3) mg/dL Microbiology - Last 24 Hours (Table) 02/04/23 18:53 Anaerobic Culture - Final Abdomen
[2023-02-09 16:36] LABS: Glucose,Whole Blood 139 mg/dL (70-110)
[2023-02-09] MEDS: LORATADINE 10 MG TAB PO PRN (16:36)
[2023-02-09 20:31] LABS: Glucose,Whole Blood 157 mg/dL (70-110)
[2023-02-09] MEDS: BISOPROLOL-HCTZ 5-6.25 MG 1 EACH TAB PO SCH (21:05)
[2023-02-09] MEDS: amLODIPine 5 MG TAB PO SCH (21:05)
[2023-02-10] MEDS: ACETAMINOPHEN TAB 500 MG TAB PO SCH ×4 (00:44→18:22)
[2023-02-10] MEDS: ONDANSETRON 4 MG/2 ML VIAL IVP SCH ×4 (00:44→18:22)
[2023-02-10] MEDS: metroNIDAZOLE-NS PMX 500 MG in SALINE 1 100ML.BAG IVPB SCH ×3 (00:44→18:22)
--- NOTE | 2023-02-10 04:00 | P.PN ---
Subjective Progress Note Date: 02/09/23 This is a 67-year-old female who was recently admitted with abdominal pain and found to have acute appendiceal perforation with diverticular perforation and being closely monitored. Patient is status post exploratory laparotomy with sigmoid resection, diverting colostomy and being closely monitored. Patient has been advanced in diet per general surgery and tolerating thus far. Patient continues with some bloating and distention and is concerned that she was noted to have previous significant constipation prior to the surgery. Patient has been given a dose of lactulose and is continued on bowel regimen. Patient is currently maintained on antibiotics with infectious disease following closely as cultures are showing Pseudomonas fluorescens with putida. Patient does continue significant weakness and would recommend physical therapy daily and with frequent walks up to 3 times daily as tolerated. Patient is currently afebrile with no reports of chest pain or shortness of breath. Patient is noted to have some output and ostomy and continues of the RUBEN drain as well. 02/09/2023 Patient is seen in follow-up today currently sitting up in a chair appears fatigue although easily arousable. Patient denies chest pain or shortness of breath and is currently maintaining oxygen saturations above 90% on room air. Patient is using incentive spirometer and his encouraged to use at least 10 t imes every hour while awake. Patient has been up and walking with physical therapy and reports weakness although is doing well. Plans on returning home with home care. Patient tolerating low fiber diet and there is brown liquid stool noted in the ostomy. Awaiting ostomy education. Patient is afebrile maintained on antibiotics while waiting for cultures to finalize. Infectious disease is following. Patient was continued on IV fluids and will discontinue patient is tolerating oral intake. Review of systems: Constitutional: reports of fatigue, no fever, or chills Cardiovascular: No reports of chest pain or palpitations Respiratory: No reports of shortness of breath or cough GI: No reports of nausea, no reports of vomiting, reports of some ostomy liquid brown stool starting in the ostomy bag : No reports of dysuria or retention Neurovascular: reports of generalized weakness All medications have been reviewed PHYSICAL EXAMINATION: GENERAL: The patient is alert and oriented x4, lethargic although easily arousable. Well developed, well nourished. HEENT: Pupils are round and equally reacting to light. EOMI. no scleral icterus. No conjunctival pallor. Normocephalic, atraumatic. No pharyngeal erythema. No thyromegaly. CARDIOVASCULAR: S1 and S2 muffled PULMONARY: diminished breath sounds bilaterally with no wheezing or rhonchi noted. ABDOMEN: soft. tender on exam. Mildly, normoactive bowel sounds. No palpable organomegaly. Less distended MUSCULOSKELETAL: No joint swelling or deformity. EXTREMITIES: No cyanosis, clubbing, or pedal edema. NEUROLOGICAL: Gross neurological examination did not reveal any focal deficits. Diffuse weakness SKIN: No rashes. Assessment: Acute appendiceal perforation with peritonitis, pelvic abscess, status post exploratory laparotomy, sigmoid resection with diverting colostomy and early sepsis, present on admission Diffuse inflammatory changes in collection of fluid on the CAT scan with cultures growing Pseudomonas fluoresceins, finalized cultures pending Hypertension Severe pain, improving Leukocytosis secondary to assessment #1 Perforated viscus with pneumoperitoneum GI prophylaxis DVT prophylaxis Full code Plan: Recommend to continue with current medications and management per general surgery and infectious disease. Patient is continued on antibiotics in the form of Flagyl and Zosyn with culture showing Pseudomonas fluorescens with putida. Awaiting finalized cultures currently. Patient's diet has been advanced to low fiber and tolerating thus far eating small frequent meals and there is some noted liquid brown stool in the ostomy with no significant gas yet. Patient does report she feels some cramping in the abdomen and was concerned with severe constipation prior to surgical intervention and was given a dose of lactulose Continue pain management Home medications reviewed and resumed as appropriate as patient is now tolerating oral intake Encouraged increased activity as tolerated recommend physical therapy daily and frequent walking as tolerated and sitting up in the chair more often Encouraged incentive spirometer use at least 10 times every hour while awake Follow-up on repeat labs and replace electrolytes per protocol Due to multiple complex medical issues, overall prognosis is guarded at this time No plans for DC until early next week per surgery recommendations given patient' s significant surgical findings The impression and plan of care has been dictated by Mansi Mena, nurse practitioner as directed. Dr. Jenelle MD I have performed a history and examination and MDM of this patient, discussed the same with the dictator, and agree with the dictator's assessment and plan as written ,documented as a scribe. Based on total visit time, I have performed more than 50% of the visit. Any additional findings or plans will be noted. Objective - Vital Signs Vital signs: Vital Signs Temp 98.2 F 02/09/23 06:55 Pulse 81 02/09/23 06:55 Resp 16 02/09/23 06:55 BP 143/85 02/09/23 06:55 Pulse Ox 97 02/09/23 06:55 FiO2 Intake & Output 02/08/23 02/09/23 02/09/23 18:59 06:59 18:59 Output Total 40 100 Balance -40 -100 Weight 77.111 kg Output: Drainage 40 100 Left Lower Abdomen 40 100 Other: Voiding Method Toilet Toilet # Voids 4 - Labs CBC & Chem 7: 02/09/23 06:45 02/09/23 06:45 Labs: Abnormal Lab Results - Last 24 Hours (Table) 02/08/23 02/08/23 02/08/23 Range/Units 06:44 06:44 11:32 RBC 3.89 L (4.10-5.20) X 10*6/uL Hgb 11.3 L (12.0-15.0) g/dL Hct 34.7 L (37.2-46.3) % RDW 14.6 H (11.5-14.5) % Immature Gran # 0.17 H (0.00-0.04) X 10*3/uL Eosinophils # 0.36 H (0.04-0.35) X 10*3/uL Creatinine 0.4 L (0.6-1.5) mg/dL BUN/Creatinine Ratio 29.50 H (12.00-20.00) Ratio Glucose 146 H (70-110) mg/dL POC Glucose (mg/dL) 147 H (70-110) mg/dL Calcium 8.6 L (8.7-10.3) mg/dL 02/08/23 02/08/23 02/09/23 Range/Units 16:40 20:21 05:52 RBC (4.10-5.20) X 10*6/uL Hgb (12.0-15.0) g/dL Hct (37.2-46.3) % RDW (11.5-14.5) % Immature Gran # (0.00-0.04) X 10*3/uL Eosinophils # (0.04-0.35) X 10*3/uL Creatinine (0.6-1.5) mg/dL BUN/Creatinine Ratio (12.00-20.00) Ratio Glucose (70-110) mg/dL POC Glucose (mg/dL) 144 H 134 H 129 H (70-110) mg/dL Calcium (8.7-10.3) mg/dL Microbiology - Last 24 Hours (Table) 02/04/23 18:53 Anaerobic Culture - Final Abdomen
[2023-02-10] MEDS: PIPERACILLIN-TAZOBACTAM 3.375 GM in SODIUM CHLORIDE 0.9% 100 ML IVPB SCH ×3 (05:42→22:11)
[2023-02-10 05:55] LABS: Glucose,Whole Blood 120 mg/dL (70-110)
[2023-02-10] MEDS: INSULIN ASPART (NovoLOG) 100 UNIT/ML VIAL SQ SCH ×4 (06:08→22:00)
[2023-02-10] MEDS: FLUTICASONE 50MCG/SPRAY NASAL 16GM EA NOSTRIL SCH (08:48)
[2023-02-10] MEDS: PANTOPRAZOLE 40 MG/10 ML VIAL IVP SCH ×2 (08:48→22:10)
[2023-02-10] MEDS: HEPARIN SODIUM,PORCINE 5,000 UNIT/ML 1 ML VIAL SQ SCH ×2 (08:48→22:10)
[2023-02-10 09:13] LABS: Blood Urea Nitrogen 7.9 mg/dL (9.0-27.0); Calcium 8.6 mg/dL (8.7-10.3); Carbon Dioxide 26.8 mmol/L (21.6-31.8); Chloride 106 mmol/L (96-109); Glucose 124 mg/dL (70-110); Magnesium 1.8 mg/dL (1.5-2.4); Potassium 3.8 mmol/L (3.5-5.5); Sodium 145 mmol/L (135-145)
--- NOTE | 2023-02-10 10:30 | P.PN ---
Subjective Progress Note Date: 02/10/23 NAEON. No F/C. Well controlled abdominal pain. Admits to ostomy ouput with gas and stool. Voiding without issue. No SOB or CP. Tolerating soft diet without issue. Objective - Vital Signs Vital signs: Vital Signs Temp 98.4 F 02/10/23 07:13 Pulse 75 02/10/23 07:13 Resp 16 02/10/23 07:13 BP 125/77 02/10/23 07:13 Pulse Ox 94 L 02/10/23 07:13 FiO2 Intake & Output 02/09/23 02/10/23 02/10/23 18:59 06:59 18:59 Output Total 50 130 Balance -50 -130 Output: Drainage 50 10 Left Lower Abdomen 50 10 Stool 120 Other: Voiding Method Toilet Toilet # Voids 3 2 # Bowel Movements 1 1 - Exam Gen: AxO, NAD Pulm: non-labored respirations Abd: soft, non-tender, minimally distended, no guarding/rebound/rigidity Incisions: C/D/I, no erythema or fluctuence appreciated Ostomy: pink and patent, producing liquid stool and gas Extrem: no edema seen - Labs CBC & Chem 7: 02/09/23 06:45 02/10/23 06:49 Labs: Abnormal Lab Results - Last 24 Hours (Table) 02/09/23 02/09/23 02/09/23 Range/Units 06:45 06:45 11:50 RBC 3.92 L (4.10-5.20) X 10*6/uL Hgb 11.3 L (12.0-15.0) g/dL Hct 34.3 L (37.2-46.3) % MPV 9.3 L (9.5-12.2) FL Basophils # (Manual) 0.25 H (0.00-0.10) X 10*3/uL Anion Gap (4.00-12.00) mmol/L BUN (9.0-27.0) mg/dL Creatinine 0.5 L (0.6-1.5) mg/dL Glucose 135 H (70-110) mg/dL POC Glucose (mg/dL) 130 H (70-110) mg/dL Calcium 8.5 L (8.7-10.3) mg/dL 1202/09/23 02/10/23 Range/Units 16:35 20:29 05:54 RBC (4.10-5.20) X 10*6/uL Hgb (12.0-15.0) g/dL Hct (37.2-46.3) % MPV (9.5-12.2) FL Basophils # (Manual) (0.00-0.10) X 10*3/uL Anion Gap (4.00-12.00) mmol/L BUN (9.0-27.0) mg/dL Creatinine (0.6-1.5) mg/dL Glucose (70-110) mg/dL POC Glucose (mg/dL) 139 H 157 H 120 H (70-110) mg/dL Calcium (8.7-10.3) mg/dL 02/10/23 Range/Units 06:49 RBC (4.10-5.20) X 10*6/uL Hgb (12.0-15.0) g/dL Hct (37.2-46.3) % MPV (9.5-12.2) FL Basophils # (Manual) (0.00-0.10) X 10*3/uL Anion Gap 12.20 H (4.00-12.00) mmol/L BUN 7.9 L (9.0-27.0) mg/dL Creatinine 0.5 L (0.6-1.5) mg/dL Glucose 124 H (70-110) mg/dL POC Glucose (mg/dL) (70-110) mg/dL Calcium 8.6 L (8.7-10.3) mg/dL Microbiology - Last 24 Hours (Table) 02/04/23 18:53 Anaerobic Culture - Preliminary Appendix Anaerobic Gm Positive Bacill Assessment and Plan Assessment: Patient is a 67 year old female who is S/P Hoang's procedure, appendectomy POD#6. She is doing well Plan: -Diet as tolerated -PRN pain and nausea control -Encourage ambulation -DVT/GI PPx -Potential DC on sunday Antwon Dumont MD General Surgery
[2023-02-10 11:37] LABS: Glucose,Whole Blood 137 mg/dL (70-110)
[2023-02-10] MEDS ORDERED: MAGNESIUM SULFATE-D5W PMX 1 GM in DEXTROSE/WATER 1 100ML.BAG IVPB ONE (14:30)
[2023-02-10 16:54] LABS: Glucose,Whole Blood 113 mg/dL (70-110)
[2023-02-10 20:56] LABS: Glucose,Whole Blood 115 mg/dL (70-110)
[2023-02-10] MEDS: amLODIPine 5 MG TAB PO SCH (22:10)
[2023-02-10] MEDS: BISOPROLOL-HCTZ 5-6.25 MG 1 EACH TAB PO SCH (22:11)
--- NOTE | 2023-02-10 23:37 | P.PN ---
Subjective Progress Note Date: 02/10/23 This is a 67-year-old female who was recently admitted with abdominal pain and found to have acute appendiceal perforation with diverticular perforation and being closely monitored. Patient is status post exploratory laparotomy with sigmoid resection, diverting colostomy and being closely monitored. Patient has been advanced in diet per general surgery and tolerating thus far. Patient continues with some bloating and distention and is concerned that she was noted to have previous significant constipation prior to the surgery. Patient has been given a dose of lactulose and is continued on bowel regimen. Patient is currently maintained on antibiotics with infectious disease following closely as cultures are showing Pseudomonas fluorescens with putida. Patient does continue significant weakness and would recommend physical therapy daily and with frequent walks up to 3 times daily as tolerated. Patient is currently afebrile with no reports of chest pain or shortness of breath. Patient is noted to have some output and ostomy and continues of the RUBEN drain as well. 02/09/2023 Patient is seen in follow-up today currently sitting up in a chair appears fatigue although easily arousable. Patient denies chest pain or shortness of breath and is currently maintaining oxygen saturations above 90% on room air. Patient is using incentive spirometer and his encouraged to use at least 10 ti mes every hour while awake. Patient has been up and walking with physical therapy and reports weakness although is doing well. Plans on returning home with home care. Patient tolerating low fiber diet and there is brown liquid stool noted in the ostomy. Awaiting ostomy education. Patient is afebrile maintained on antibiotics while waiting for cultures to finalize. Infectious disease is following. Patient was continued on IV fluids and will discontinue patient is tolerating oral intake. 02/10/2023 Patient is currently sitting in the chair. Awake alert and oriented x 3. Denies any complaints of chest pain or shortness of breath. No complaints of abdominal pain. Does have output from ostomy. Patient is afebrile. Continue to antibiotics Zosyn and Flagyl as well. Laboratory data showed sodium 145 potassium 3.8 chloride 106 bicarb is 26.8, BUN 7.9 and creatinine 0.5 and blood sugar is 124. Magnesium 1.8 Review of systems: Constitutional: reports of fatigue, no fever, or chills Cardiovascular: No reports of chest pain or palpitations Respiratory: No reports of shortness of breath or cough GI: No reports of nausea, no reports of vomiting, reports of some ostomy liquid brown stool starting in the ostomy bag : No reports of dysuria or retention Neurovascular: reports of generalized weakness All medications have been reviewed PHYSICAL EXAMINATION: GENERAL: The patient is alert and oriented x4, lethargic although easily arousable. Well developed, well nourished. HEENT: Pupils are round and equally reacting to light. EOMI. no scleral icterus. No conjunctival pallor. Normocephalic, atraumatic. No pharyngeal erythema. No thyromegaly. CARDIOVASCULAR: S1 and S2 muffled PULMONARY: diminished breath sounds bilaterally with no wheezing or rhonchi noted. ABDOMEN: soft. tender on exam. Mildly, normoactive bowel sounds. No palpable organomegaly. Less distended MUSCULOSKELETAL: No joint swelling or deformity. EXTREMITIES: No cyanosis, clubbing, or pedal edema. NEUROLOGICAL: Gross neurological examination did not reveal any focal deficits. Diffuse weakness SKIN: No rashes. Assessment: Acute appendiceal perforation with peritonitis, pelvic abscess, status post exploratory laparotomy, sigmoid resection with diverting colostomy and early sepsis, present on admission Diffuse inflammatory changes in collection of fluid on the CAT scan with culture s growing Pseudomonas fluoresceins, finalized cultures pending Hypertension Severe pain, improving Leukocytosis secondary to assessment #1 Perforated viscus with pneumoperitoneum GI prophylaxis DVT prophylaxis Full code Plan: Recommend to continue with current medications and management per general surgery and infectious disease. Patient is continued on antibiotics in the form of Flagyl and Zosyn with culture showing Pseudomonas fluorescens with putida. Awaiting finalized cultures currently. Patient's diet has been advanced to low fiber and tolerating thus far eating small frequent meals and there is some noted liquid brown stool in the ostomy with no significant gas yet. Patient does report she feels some cramping in the abdomen and was concerned with severe constipation prior to surgical intervention and was given a dose of lactulose Continue pain management Home medications reviewed and resumed as appropriate as patient is now tolerating oral intake Encouraged increased activity as tolerated recommend physical therapy daily and frequent walking as tolerated and sitting up in the chair more often Encouraged incentive spirometer use at least 10 times every hour while awake Follow-up on repeat labs and replace electrolytes per protocol Due to multiple complex medical issues, overall prognosis is guarded at this time No plans for DC until early next week per surgery recommendations given patient's significant surgical findings Objective - Vital Signs Vital signs: Vital Signs Temp 98.1 F 02/10/23 12:55 Pulse 86 02/10/23 12:55 Resp 17 02/10/23 12:55 BP 126/71 02/10/23 12:55 Pulse Ox 95 02/10/23 12:55 FiO2 Intake & Output 02/09/23 02/10/23 02/10/23 18:59 06:59 18:59 Output Total 50 130 Balance -50 -130 Output: Drainage 50 10 Left Lower Abdomen 50 10 Stool 120 Other: Voiding Method Toilet Toilet # Voids 3 2 # Bowel Movements 1 1 - Labs CBC & Chem 7: 02/09/23 06:45 02/10/23 06:49 Labs: Abnormal Lab Results - Last 24 Hours (Table) 02/09/23 02/09/23 02/10/23 Range/Units 16:35 20:29 05:54 Anion Gap (4.00-12.00) mmol/L BUN (9.0-27.0) mg/dL Creatinine (0.6-1.5) mg/dL Glucose (70-110) mg/dL POC Glucose (mg/dL) 139 H 157 H 120 H (70-110) mg/dL Calcium (8.7-10.3) mg/dL 02/10/23 02/10/23 Range/Units 06:49 11:35 Anion Gap 12.20 H (4.00-12.00) mmol/L BUN 7.9 L (9.0-27.0) mg/dL Creatinine 0.5 L (0.6-1.5) mg/dL Glucose 124 H (70-110) mg/dL POC Glucose (mg/dL) 137 H (70-110) mg/dL Calcium 8.6 L (8.7-10.3) mg/dL Microbiology - Last 24 Hours (Table) 02/04/23 18:53 Anaerobic Culture - Preliminary Appendix Anaerobic Gm Positive [place]
[2023-02-11] MEDS: ONDANSETRON 4 MG/2 ML VIAL IVP SCH ×4 (01:43→18:08)
[2023-02-11] MEDS: ACETAMINOPHEN TAB 500 MG TAB PO SCH ×4 (01:43→18:08)
[2023-02-11] MEDS: metroNIDAZOLE-NS PMX 500 MG in SALINE 1 100ML.BAG IVPB SCH ×3 (01:44→18:09)
[2023-02-11] MEDS: PIPERACILLIN-TAZOBACTAM 3.375 GM in SODIUM CHLORIDE 0.9% 100 ML IVPB SCH ×3 (06:09→21:11)
[2023-02-11 06:13] LABS: Glucose,Whole Blood 119 mg/dL (70-110)
[2023-02-11] MEDS: INSULIN ASPART (NovoLOG) 100 UNIT/ML VIAL SQ SCH ×4 (06:13→21:11)
[2023-02-11] MEDS: PANTOPRAZOLE 40 MG/10 ML VIAL IVP SCH ×2 (09:10→21:11)
[2023-02-11] MEDS: FLUTICASONE 50MCG/SPRAY NASAL 16GM EA NOSTRIL SCH (09:10)
[2023-02-11] MEDS: HEPARIN SODIUM,PORCINE 5,000 UNIT/ML 1 ML VIAL SQ SCH ×2 (09:10→21:11)
[2023-02-11 09:29] LABS: Blood Urea Nitrogen 8.6 mg/dL (9.0-27.0); Calcium 8.7 mg/dL (8.7-10.3); Chloride 105 mmol/L (96-109); Glucose 120 mg/dL (70-110); Potassium 3.8 mmol/L (3.5-5.5); Sodium 140 mmol/L (135-145)
[2023-02-11 10:05] LABS: Basophils # (A) 0.04 X 10*3/uL (0.00-0.10); Basophils % (A) 0.4 %; Eosinophils # (A) 0.32 X 10*3/uL (0.04-0.35); Eosinophils % (A) 3.2 %; HCT 33.7 % (37.2-46.3); Lymphocytes # (A) 1.83 X 10*3/uL (0.90-5.00); Lymphocytes % (A) 18.1 %; MCH 28.8 pg (27.0-32.0); MCHC 32.6 g/dL (32.0-37.0); MCV 88.2 FL (80.0-97.0); Mean Platelet Volume 9.4 FL (9.5-12.2); Monocytes # (A) 1.07 X 10*3/uL (0.20-1.00); Monocytes % (A) 10.6 %; NRBC Per 100 WBC 0 X 10*3/uL (0.00-0.01); Neutrophils # (A) 6.36 X 10*3/uL (1.80-7.70); Neutrophils % (A) 62.9 %; Platelet Count 384 X 10*3/uL (140-440); RBC 3.82 X 10*6/uL (4.10-5.20); RDW 14.6 % (11.5-14.5); WBC 10.11 X 10*3/uL (4.50-10.00)
[2023-02-11 10:06] LABS: RBC Morphology Normal (Normal)
[2023-02-11 11:26] LABS: Glucose,Whole Blood 108 mg/dL (70-110)
--- NOTE | 2023-02-11 11:47 | P.PN ---
Progress Note - Text Progress Note Date: 02/11/23 The patient feels better today. Her colostomy dysfunction. On exam vital signs appear stable. Abdomen soft. Incision is clean dry intact. Status post appendectomy and sigmoid colectomy for diverticulitis, appendicitis. Patient will continue receive supportive care. Inducible discharged home tomorrow.
[2023-02-11 16:36] LABS: Glucose,Whole Blood 120 mg/dL (70-110)
[2023-02-11 19:40] LABS: Glucose,Whole Blood 180 mg/dL (70-110)
[2023-02-11] MEDS: amLODIPine 5 MG TAB PO SCH (21:11)
[2023-02-11] MEDS: BISOPROLOL-HCTZ 5-6.25 MG 1 EACH TAB PO SCH (21:11)
--- NOTE | 2023-02-11 22:18 | P.PN ---
Subjective Progress Note Date: 02/11/23 This is a 67-year-old female who was recently admitted with abdominal pain and found to have acute appendiceal perforation with diverticular perforation and being closely monitored. Patient is status post exploratory laparotomy with sigmoid resection, diverting colostomy and being closely monitored. Patient has been advanced in diet per general surgery and tolerating thus far. Patient continues with some bloating and distention and is concerned that she was noted to have previous significant constipation prior to the surgery. Patient has been given a dose of lactulose and is continued on bowel regimen. Patient is currently maintained on antibiotics with infectious disease following closely as cultures are showing Pseudomonas fluorescens with putida. Patient does continue significant weakness and would recommend physical therapy daily and with frequent walks up to 3 times daily as tolerated. Patient is currently afebrile with no reports of chest pain or shortness of breath. Patient is noted to have some output and ostomy and continues of the RUBEN drain as well. 02/09/2023 Patient is seen in follow-up today currently sitting up in a chair appears fatigue although easily arousable. Patient denies chest pain or shortness of breath and is currently maintaining oxygen saturations above 90% on room air. Patient is using incentive spirometer and his encouraged to use at least 10 ti mes every hour while awake. Patient has been up and walking with physical therapy and reports weakness although is doing well. Plans on returning home with home care. Patient tolerating low fiber diet and there is brown liquid stool noted in the ostomy. Awaiting ostomy education. Patient is afebrile maintained on antibiotics while waiting for cultures to finalize. Infectious disease is following. Patient was continued on IV fluids and will discontinue patient is tolerating oral intake. 02/10/2023 Patient is currently sitting in the chair. Awake alert and oriented x 3. Denies any complaints of chest pain or shortness of breath. No complaints of abdominal pain. Does have output from ostomy. Patient is afebrile. Continue to antibiotics Zosyn and Flagyl as well. Laboratory data showed sodium 145 potassium 3.8 chloride 106 bicarb is 26.8, BUN 7.9 and creatinine 0.5 and blood sugar is 124. Magnesium 1.8 02/11/2023 Patient is currently sitting in the chair. Awake alert and oriented x 3. Close no chest pain or shortness of breath. Abdominal pain is improved. Colostomy is functioning and patient is able to ambulate. Afebrile. Continued on IV antibiotics Zosyn and Flagyl. Laboratory data showed WBC 10.1 hemoglobin 11.0 and platelets 384 BUN 8.6 and creatinine 0.5 and blood sugar 120 and calcium 8.7. ID and general surgery is on board. Review of systems: Constitutional: reports of fatigue, no fever, or chills Cardiovascular: No reports of chest pain or palpitations Respiratory: No reports of shortness of breath or cough GI: No reports of nausea, no reports of vomiting, reports of some ostomy liquid brown stool starting in the ostomy bag : No reports of dysuria or retention Neurovascular: reports of generalized weakness All medications have been reviewed PHYSICAL EXAMINATION: GENERAL: The patient is alert and oriented x4, lethargic although easily arousable. Well developed, well nourished. HEENT: Pupils are round and equally reacting to light. EOMI. no scleral icterus. No conjunctival pallor. Normocephalic, atraumatic. No pharyngeal erythema. No thyromegaly. CARDIOVASCULAR: S1 and S2 muffled PULMONARY: diminished breath sounds bilaterally with no wheezing or rhonchi noted. ABDOMEN: soft. tender on exam. Mildly, normoactive bowel sounds. No palpable organomegaly. Less distended MUSCULOSKELETAL: No joint swelling or deformity. EXTREMITIES: No cyanosis, clubbing, or pedal edema. NEUROLOGICAL: Gross neurological examination did not reveal any focal deficits. Diffuse weakness SKIN: No rashes. Assessment: Acute appendiceal perforation with peritonitis, pelvic abscess, status post exploratory laparotomy, sigmoid resection with diverting colostomy and early sepsis, present on admission Diffuse inflammatory changes in collection of fluid on the CAT scan with cultures growing Pseudomonas fluoresceins, finalized cultures pending Hypertension Severe pain, improving Leukocytosis secondary to assessment #1 Perforated viscus with pneumoperitoneum GI prophylaxis DVT prophylaxis Full code Plan: Recommend to continue with current medications and management per general surgery and infectious disease. Patient is continued on antibiotics in the form of Flagyl and Zosyn with culture showing Pseudomonas fluorescens with putida. Awaiting finalized cultures currently. Patient's diet has been advanced to low fiber and tolerating thus far eating small frequent meals and there is some noted liquid brown stool in the ostomy with no significant gas yet. Patient does report she feels some cramping in the abdomen and was concerned with severe constipation prior to surgical intervention and was given a dose of lactulose Continue pain management Home medications reviewed and resumed as appropriate as patient is now nuvia ating oral intake Encouraged increased activity as tolerated recommend physical therapy daily and frequent walking as tolerated and sitting up in the chair more often Encouraged incentive spirometer use at least 10 times every hour while awake Follow-up on repeat labs and replace electrolytes per protocol Due to multiple complex medical issues, overall prognosis is guarded at this time No plans for DC until early next week per surgery recommendations given patient's significant surgical findings Objective - Vital Signs Vital signs: Vital Signs Temp 97.9 F 02/11/23 13:21 Pulse 76 02/11/23 13:21 Resp 19 02/11/23 13:21 BP 139/78 02/11/23 13:21 Pulse Ox 97 02/11/23 13:21 FiO2 Intake & Output 02/10/23 02/11/23 02/11/23 18:59 06:59 18:59 Output Total 330 60 Balance -330 -60 Output: Drainage 10 60 Left Lower Abdomen 10 60 Stool 320 Other: Voiding Method Toilet Toilet Toilet # Voids 3 3 - Labs CBC & Chem 7: 02/11/23 06:54 02/11/23 06:54 Labs: Abnormal Lab Results - Last 24 Hours (Table) 02/10/23 02/10/23 02/11/23 Range/Units 16:53 20:54 06:12 WBC (4.50-10.00) X 10*3/uL RBC (4.10-5.20) X 10*6/uL Hgb (12.0-15.0) g/dL Hct (37.2-46.3) % RDW (11.5-14.5) % MPV (9.5-12.2) FL Immature Gran # (0.00-0.04) X 10*3/uL Monocytes # (0.20-1.00) X 10*3/uL BUN (9.0-27.0) mg/dL Creatinine (0.6-1.5) mg/dL Glucose (70-110) mg/dL POC Glucose (mg/dL) 113 H 115 H 119 H (70-110) mg/dL 02/11/23 02/11/23 Range/Units 06:54 06:54 WBC 10.11 H (4.50-10.00) X 10*3/uL RBC 3.82 L (4.10-5.20) X 10*6/uL Hgb 11.0 L (12.0-15.0) g/dL Hct 33.7 L (37.2-46.3) % RDW 14.6 H (11.5-14.5) % MPV 9.4 L (9.5-12.2) FL Immature Gran # 0.49 H (0.00-0.04) X 10*3/uL Monocytes # 1.07 H (0.20-1.00) X 10*3/uL BUN 8.6 L (9.0-27.0) mg/dL Creatinine 0.5 L (0.6-1.5) mg/dL Glucose 120 H (70-110) mg/dL POC Glucose (mg/dL) (70-110) mg/dL
[2023-02-12] MEDS: ACETAMINOPHEN TAB 500 MG TAB PO SCH ×3 (00:12→12:34)
[2023-02-12] MEDS: metroNIDAZOLE-NS PMX 500 MG in SALINE 1 100ML.BAG IVPB SCH ×2 (00:12→09:15)
[2023-02-12] MEDS: ONDANSETRON 4 MG/2 ML VIAL IVP SCH ×3 (00:12→12:34)
[2023-02-12] MEDS: INSULIN ASPART (NovoLOG) 100 UNIT/ML VIAL SQ SCH ×2 (05:54→12:34)
[2023-02-12 05:55] LABS: Glucose,Whole Blood 135 mg/dL (70-110)
[2023-02-12] MEDS: PIPERACILLIN-TAZOBACTAM 3.375 GM in SODIUM CHLORIDE 0.9% 100 ML IVPB SCH ×2 (06:00→12:34)
[2023-02-12 09:08] LABS: HCT 32.3 % (37.2-46.3); HGB 10.5 g/dL (12.0-15.0); MCH 28.5 pg (27.0-32.0); MCHC 32.5 g/dL (32.0-37.0); MCV 87.8 FL (80.0-97.0); NRBC Per 100 WBC 0 X 10*3/uL (0.00-0.01); Platelet Count 377 X 10*3/uL (140-440); RBC 3.68 X 10*6/uL (4.10-5.20); RDW 14.4 % (11.5-14.5); WBC 8.39 X 10*3/uL (4.50-10.00)
[2023-02-12] MEDS: PANTOPRAZOLE 40 MG/10 ML VIAL IVP SCH (09:16)
[2023-02-12] MEDS: HEPARIN SODIUM,PORCINE 5,000 UNIT/ML 1 ML VIAL SQ SCH (09:16)
[2023-02-12] MEDS: FLUTICASONE 50MCG/SPRAY NASAL 16GM EA NOSTRIL SCH (09:17)
[2023-02-12 09:20] LABS: Blood Urea Nitrogen 10.1 mg/dL (9.0-27.0); Calcium 8.6 mg/dL (8.7-10.3); Carbon Dioxide 23.8 mmol/L (21.6-31.8); Chloride 106 mmol/L (96-109); Glucose 124 mg/dL (70-110); Potassium 3.9 mmol/L (3.5-5.5); Sodium 143 mmol/L (135-145)
[2023-02-12 09:42] LABS: Basophils # (M) 0 X 10*3/uL (0.00-0.10)
[2023-02-12 09:44] LABS: Neutrophils # (M) 5.37 X 10*3/uL (1.80-7.70)
[2023-02-12 10:01] LABS: Lymphocytes # (M) 1.85 X 10*3/uL (0.90-5.00); Monocytes # (M) 0.59 X 10*3/uL (0.20-1.00); Neutrophils % (M) 64 %; RBC Morphology Normal (Normal)
[2023-02-12 11:15] LABS: Glucose,Whole Blood 220 mg/dL (70-110)
--- NOTE | 2023-02-12 14:33 | P.DS ---
Providers Date of admission: 02/03/23 22:52 Expected date of discharge: 02/12/23 Attending physician: Flor Aguilar Consults: 02/03/23 22:49 Consult Physician Routine Consulting Provider: Krista Pettit Consult Reason/Comments: surgical abdomen Do you want consulting provider notified?: Already Contacted 02/04/23 12:57 Consult Physician Routine Consulting Provider: Surjit Montez Consult Reason/Comments: sepsis Do you want consulting provider notified?: Yes Primary care physician: Stated None Hospital Course: CHIEF COMPLAINT: Abdominal pain HISTORY OF PRESENT ILLNESS: Patient is postop day #8 status post exploratory laparotomy with sigmoid resection for diverticulitis, descending colostomy, open appendectomy for perforated necrotic appendicitis, Mukherjee's procedure, drainage of intra-abdominal abscess, open lysis of adhesions. Ostomy is functioning. Patient reports her pain is controlled. She has been up and ambulating. She is afebrile. She is scheduled for discharge today. RUBEN drain 10 mL serosanguineous output. WBC 8.39 Hgb 10.5 platelets 377 sodium is 143 potassium 3.9 creatinine 0.5 PHYSICAL EXAM: VITAL SIGNS: Reviewed GENERAL: Well-developed in no acute distress. HEENT: No sclera icterus. Extraocular movements grossly intact. Moist buccal mucosa. Head is atraumatic, normocephalic. Hears conversational speech. No nasal drainage. NECK: Supple without lymphadenopathy. CHEST: Non-labored respirations and equal bilateral excursions. CARDIOVASCULAR: Palpable 2+ radial pulses. ABDOMEN: Soft. Nondistended. Prevana wound vac removed. Incision site clean dry and intact. MUSCULOSKELETAL: No clubbing or cyanosis. NEUROLOGIC: No focal or lateralizing signs. Cranial nerves II through XII grossly intact. PSYCH: Appropriate affect. Alert and oriented to person, place and time. SKIN: Well perfused. Good skin turgor. ASSESSMENT: 1. Sigmoid diverticulitis 2. Perforated appendicitis 3. Pelvic abscess 4. Perforated viscus with pneumoperitoneum 5. Sepsis PLAN: -Patient can be discharged from surgical standpoint once she has received her ostomy teaching -Discharge antibiotic per infectious disease -RUBEN drain discontinued -Prevana Wound VAC removed -Cover abdominal incision with Optifoam dressing Physician Turner Machine Operator note has been reviewed by physician. Signing provider agrees with the documented findings, assessment, and plan of care. Patient Condition at Discharge: Stable Plan - Discharge Summary New Discharge Prescriptions: New metroNIDAZOLE [Flagyl] 500 mg PO TID 10 Days #30 tab Acetaminophen Tab [Tylenol] 1,000 mg PO Q6HR PRN #30 tab PRN Reason: Pain Ciprofloxacin HCl [Cipro] 500 mg PO BID 10 Days #20 tab Loratadine [Claritin] 5 mg PO DAILY PRN #0 tab PRN Reason: Congestion Continue Vitamin D(Unknown Dose) 1 tab PO DAILY Multivit-Min/FA/Lycopen/Lutein [Centrum Silver Tablet] 1 tab PO DAILY amLODIPine [Norvasc] 5 mg PO HS Magnesium(Unknown Dose) 1 tab PO DAILY Bromelain 1 tab PO DAILY Vitamin C(Unknown Dose) 1 tab PO DAILY Bisoprolol-Hctz 5-6.25 mg [Ziac 5-6.25 MG] 1 tab PO HS Discontinued Cetirizine HCl/Pseudoephedrine [Cetirizine-Pse ER 5-120 mg Tab] 1 tab PO BID Discharge Medication List Bisoprolol-Hctz 5-6.25 mg [Ziac 5-6.25 MG] 1 tab PO HS 02/04/23 [History] Bromelain 1 tab PO DAILY 02/04/23 [History] Magnesium(Unknown Dose) 1 tab PO DAILY 02/04/23 [History] Multivit-Min/FA/Lycopen/Lutein [Centrum Silver Tablet] 1 tab PO DAILY 02/04/23 [History] Vitamin C(Unknown Dose) 1 tab PO DAILY 02/04/23 [History] Vitamin D(Unknown Dose) 1 tab PO DAILY 02/04/23 [History] amLODIPine [Norvasc] 5 mg PO HS 02/04/23 [History] Acetaminophen Tab [Tylenol] 1,000 mg PO Q6HR PRN #30 tab 02/12/23 [Rx] Ciprofloxacin HCl [Cipro] 500 mg PO BID 10 Days #20 tab 02/12/23 [Rx] Loratadine [Claritin] 5 mg PO DAILY PRN #0 tab 02/12/23 [Rx] metroNIDAZOLE [Flagyl] 500 mg PO TID 10 Days #30 tab 02/12/23 [Rx] Follow up Appointment(s)/Referral(s): Krista Pettit MD [STAFF PHYSICIAN] - 02/20/23 3:15 pm [facility], [NON-STAFF] - 1-2 Days ([facility] will call you to schedule your in home nursing visits. ) None,Stated [Primary Care Provider] - 1-2 days Surjit Montez MD [STAFF PHYSICIAN] - 1 Week Patient Instructions/Handouts: Colostomy Care (DC), Diverticulitis Diet (DC), Colectomy (DC) Activity/Diet/Wound Care/Special Instructions: Wear abdominal binder for comfort. No lifting over 4 pounds in 4 weeks Mar 15July shower. No bath tub soaks for two weeks until Feb 26 Avoid steak, tough meats and seeds such as raspberry seeds. See diverticulitis, low fiber, colectomy diet Use Tylenol and ibuprofen scheduled for the next 24-48 hours for best pain relief. Use ice along incisions for today to prevent swelling. Continue antibiotics for the next 10 days Follow-up with primary care provider on discharge Follow-up with general surgery as scheduled Discharge Disposition: HOME WITH HOME HEALTH SERVICES
[2023-02-12 15:17] VITALS: BP 113/67; PULSE 71; RESP 16; TEMP 98.5
== END 2023-02-12 17:24 | disposition home health service (06) | DRG 853 ==
LOC: EC 18:06 → 4SSUR 22:52
PROVIDERS: ADMIT Hospitalist; ATTEND Hospitalist
PROC: 0DTJ0ZZ Resection of Appendix, Open Approach (ICD-10-PCS; principal; 2023-02-04 14:30)
PROC: 0DTN0ZZ Resection of Sigmoid Colon, Open Approach (ICD-10-PCS; principal; 2023-02-04 14:30)
PROC: 0W9G0ZZ Drainage of Peritoneal Cavity, Open Approach (ICD-10-PCS; principal; 2023-02-04 14:30)
PROC: 0D1M0Z4 Bypass Descending Colon to Cutaneous, Open Approach (ICD-10-PCS; principal; 2023-02-04 14:30)
DX: A41.52 Sepsis due to Pseudomonas (principal); K35.33 Acute appendicitis with perforation, localized peritonitis, and gangrene, with abscess; K57.20 Diverticulitis of large intestine with perforation and abscess without bleeding; K59.00 Constipation, unspecified; I10 Essential (primary) hypertension; R09.02 Hypoxemia; N73.6 Female pelvic peritoneal adhesions (postinfective); K38.1 Appendicular concretions; K59.09 Other constipation; Z68.26 Body mass index [BMI] 26.0-26.9, adult; E66.9 Obesity, unspecified; Z88.0 Allergy status to penicillin; Z28.310 Unvaccinated for COVID-19; Z79.899 Other long term (current) drug therapy; Z71.3 Dietary counseling and surveillance
CPT/HCPCS: 36415; 71045; 74177; 80048; 80053; 81001; 82150; 83036; 83690; 83735; 85025; 85610; 85730; 86850; 86900; 86901; 87070; 87075; 87077; 87186; 87205; 88304; 88307; 93005; 96361; 96365; 96375; 96376; 99285

== ENCOUNTER 2023-05-10 11:11 | Inpatient (IN) | payer BC, OTHER ==
--- NOTE | 2023-05-10 09:24 | P.GSHP ---
History of Present Illness H&P Date: 05/10/23 CHIEF COMPLAINT: Perforated diverticulitis HISTORY OF PRESENT ILLNESS: The patient is a 68-year-old female who 3 months ago presented with perforated diverticulitis, sepsis, perforated appendicitis. She had Mukherjee's procedure. She has not had any prior colonoscopy screening. She presents for colonoscopy assessment prior to colostomy reversal. She has a colostomy bag. PAST MEDICAL HISTORY: Please see list. PAST SURGICAL HISTORY: Please see list. MEDICATIONS: Please see list. ALLERGIES: Please see list. SOCIAL HISTORY: No illicit drug use FAMILY HISTORY: No reports of Crohn disease or ulcerative colitis. REVIEW OF ORGAN SYSTEMS: CONSTITUTIONAL: Denies any fever or chills. HEENT: Denies any trouble with vision or nosebleeds. No difficulty swallowing. LYMPHATIC: The patient denies any lumps and bumps around the neck. ENDOCRINE: Denies any thyroid disorders. Has blood sugar glucose intolerance. RESPIRATORY: Denies pneumonia. Denies any troubles with breathing or dyspnea on exertion. CARDIOVASCULAR: Denies any chest pain, palpitations, or recent heart attacks. GASTROINTESTINAL: Has chronic diverticulitis. GENITOURINARY: Has increased urinary frequency. MUSCULOSKELETAL: Has back pain, stiffness, joint arthritis. NEUROLOGIC: Denies any numbness or tingling along the distal extremities. No seizure disorders or headaches. PSYCHIATRIC: Denies depression or suidical ideation. HEMATOLOGIC: Denies any abnormal bleeding or bruising. PHYSICAL EXAM: VITAL SIGNS: Stable GENERAL: Well-developed pleasant in no acute distress. HEENT: No scleral icterus. Extraocular movements grossly intact. Moist buccal mucosa. NECK: Supple without lymphadenopathy. CHEST: Unlabored respirations. Equal bilateral excursions. CARDIOVASCULAR: Regular rate and rhythm. Distal 2+ pulses. ABDOMEN: Colostomy pink patent and viable MUSCULOSKELETAL: No clubbing, cyanosis, or edema. NERUO: Cranial nerves 2-12 grossly intact. PSYCH: Alert and oriented to person place and time. ASSESSMENT: 1. Perforated diverticulitis with colostomy and sepsis PLAN: 1. Benefits and risks of open colostomy reversal was reviewed in detail. Robotic-assisted approach was also described. 2. Enhanced colon recovery program. 3. DVT prophylaxis. 4. Antibiotic prophylaxis. 5. Inpatient hospitalization greater than 2 nights described due to pre- existing history of sepsis 6. Recommend colonoscopy for evaluation of neoplasm. 7. CBC and CMP including type and screen on admission 8. 2 L normal saline bolus on admission 9. Mechanical and antibiotic bowel prep on admission Past Medical History Past Medical History: Hypertension Additional Past Medical History / Comment(s): ruptured appy and sepsis, feb 2023 History of Any Multi-Drug Resistant Organisms: None Reported Past Surgical History: Appendectomy, Bowel Resection Additional Past Surgical History / Comment(s): colostomy Past Anesthesia/Blood Transfusion Reactions: No Reported Reaction Smoking Status: Never smoker - Past Family History Father Family Medical History: Cancer Additional Family Medical History / Comment(s): oral Medications and Allergies Home Medications Medication Instructions Recorded Confirmed Type Bisoprolol-Hctz 5-6.25 mg [Ziac 1 tab PO HS 02/04/23 05/08/23 History 5-6.25 MG] Bromelain 1 tab PO DAILY 02/04/23 05/08/23 History Magnesium(Unknown Dose) 1 tab PO DAILY 02/04/23 05/08/23 History Multivit-Min/FA/Lycopen/Lutein 1 tab PO DAILY 02/04/23 05/08/23 History [Centrum Silver Tablet] Vitamin C(Unknown Dose) 1 tab PO DAILY 02/04/23 05/08/23 History Vitamin D(Unknown Dose) 1 tab PO DAILY 02/04/23 05/08/23 History amLODIPine [Norvasc] 5 mg PO HS 02/04/23 05/08/23 History Acetaminophen Tab [Tylenol] 1,000 mg PO Q6HR PRN #30 tab 02/12/23 05/08/23 Rx Allergies Allergy/AdvReac Type Severity Reaction Status Date / Time Sulfa (Sulfonamide Allergy Unknown Verified 05/08/23 14:08 Antibiotics) Childhood
[~2023-05-10 11:11] MED LIST: Antibiotics per Pharmacy 1 EACH MISC MISCELLANE PRN
[2023-05-10 12:56] LABS: Glucose,Whole Blood 84 mg/dL (70-110)
[2023-05-10 13:00] LABS: Basophils # (A) 0.1 k/uL (0-0.2); Basophils % (A) 1 %; Eosinophils # (A) 0.4 k/uL (0-0.7); Eosinophils % (A) 5 %; HCT 39.4 % (34.0-46.0); HGB 13.2 gm/dL (11.4-16.0); Lymphocytes # (A) 1.8 k/uL (1.0-4.8); Lymphocytes % (A) 27 %; MCH 30.1 pg (25.0-35.0); MCHC 33.5 g/dL (31.0-37.0); MCV 89.6 fL (80.0-100.0); Mean Platelet Volume 7.1; Monocytes # (A) 0.3 k/uL (0-1.0); Monocytes % (A) 5 %; Neutrophils # (A) 4.1 k/uL (1.3-7.7); Neutrophils % (A) 61 %; Platelet Count 225 k/uL (150-450); RBC 4.39 m/uL (3.80-5.40); RDW 14.2 % (11.5-15.5); WBC 6.8 k/uL (3.8-10.6)
[2023-05-10] MEDS ORDERED: PROPOFOL 10 MG/ML 20 ML VIAL IV ONE (13:01)
[2023-05-10 13:05] LABS: INR 1.1 (<1.2); Prothrombin Time 11.6 sec (10.0-12.5)
[2023-05-10 13:23] LABS: ALT 35 U/L (4-34); AST 38 U/L (14-36); African American GFR (CKD) >90 (>60 ml/min/1.73 sqM); Albumin 4.6 g/dL (3.5-5.0); Albumin/Globulin Ratio 1.3; Alkaline Phosphatase 87 U/L (38-126); Anion Gap 10 mmol/L; Blood Urea Nitrogen 17 mg/dL (7-17); Calcium 9.6 mg/dL (8.4-10.2); Carbon Dioxide 25 mmol/L (22-30); Chloride 107 mmol/L (98-107); Globulin 3.5 g/dL; Glucose 83 mg/dL (74-99); Non-African American GFR(CKD) >90 (>60 ml/min/1.73 sqM); Potassium 4.1 mmol/L (3.5-5.1); Sodium 142 mmol/L (137-145); Total Bilirubin 0.9 mg/dL (0.2-1.3); Total Protein 8.1 g/dL (6.3-8.2)
--- NOTE | 2023-05-10 13:35 | P.PCN ---
Date of Procedure: 05/10/23 Description of Procedure: PREOPERATIVE DIAGNOSIS: History of perforated diverticulitis with sepsis Colostomy status Colonoscopy screening. POSTOPERATIVE DIAGNOSIS: Colonoscopy screening. Scattered moderate diverticulosis Internal and external hemorrhoids, grade 3 OPERATION: Colonoscopy to the cecum, ileocecal valve and appendiceal orifice via ostomy Colonoscopy via rectum SURGEON: Krista Pettit MD. ANESTHESIA: MAC. INDICATIONS: The patient is a 68-year-old female who presents with pre-existing history of perforated diverticulitis with sepsis including colostomy status. She has not had a prior colonoscopy screening. Benefits and risks were described and informed consent was obtained. DESCRIPTION OF PROCEDURE: The patient had undergone Sutab prep. Prior patient also had enema. The patient had been brought into the operating room and laid in the left lateral decubitus position. After adequate intravenous sedation, the rectum was examined with 2% lidocaine jelly. External hemorrhoids were encountered. The rectal tone was within normal limits. No lesions were palpated in the rectal vault. The scope was advanced to the rectal stump at 20 cm from the anal verge. The colonoscope was withdrawn. Retroflexion of the scope demonstrated grade 3 internal hemorrhoids without active bleeding or inflammation. The colon was desufflated. Patient was flipped supine. An Olympus colonoscope was advanced through her ostomy until the cecum, ileocecal valve and appendiceal orifice were clearly viewed. The prep was excellent with the exception of stool within the cecum/appendiceal orifice. Scattered diverticulosis was encountered. No colonic polyps were found. No evidence of focal colitis was found. The patient had tolerated the procedure well. Withdrawal time was over 6 minutes. FINDINGS: Aronchick preparation quality scale 1 (1-5) Internal hemorrhoids, grade 3 External prolapsed hemorrhoids, grade 3 No arteriovenous malformations. No adenomatous polyps. No focal colitis. Rectal stump 20 cm from the anal verge RECOMMENDATIONS: 1. Recommend inpatient admission due to complexity and initial sepsis prior to colostomy reversal 2. Enhanced colon prep advised with nickel mechanical bowel prep 3. Lower endoscopy in 5 years, 2028
[2023-05-10] MEDS: SODIUM CHLORIDE 0.9% 2,000 ML IV ONE (14:57)
[2023-05-10] MEDS: PEG 3350 (236 GM/BTL) + LYTES 4,000 ML BOTTLE PO ONE (14:57)
[2023-05-10] MEDS: NEOMYCIN 500 MG TAB PO SCH ×2 (15:17→15:20)
[2023-05-10] MEDS: D5-0.45% NACL WITH KCL 20MEQ/L 1,000 ML IV SCH (15:17)
[2023-05-10] MEDS: metroNIDAZOLE 500 MG TAB PO SCH ×2 (15:17→15:20)
[2023-05-10] MEDS: TEMAZEPAM 15 MG CAP PO ONE (23:00)
[2023-05-11] MEDS ORDERED: metroNIDAZOLE-NS PMX 500 MG in SALINE 1 100ML.BAG IVPB PRN (05:00)
[2023-05-11] MEDS ORDERED: HEPARIN SODIUM,PORCINE 5,000 UNIT/ML 1 ML VIAL SQ PRN (06:00)
[2023-05-11] MEDS: LACTATED RINGERS 1,000 ML IV SCH (06:03)
[2023-05-11] MEDS: ALVIMOPAN 12 MG CAPSULE PO PRN (10:58)
[2023-05-11] MEDS: ONDANSETRON 4 MG/2 ML VIAL IVP PRN (10:58)
[2023-05-11] MEDS: ACETAMINOPHEN TAB 500 MG TAB PO PRN (10:58)
[2023-05-11] MEDS: MELOXICAM 7.5 MG TAB PO PRN (10:58)
[2023-05-11] MEDS: MIDAZOLAM 2 MG/2 ML VIAL IVP ONE (11:04)
--- NOTE | 2023-05-11 11:19 | P.HPADDEND ---
H&P Addendum H&P Addendum Date: 05/11/23 Patient has pre-existing history of sepsis including perforated appendicitis and diverticulitis with peritonitis. Patient had insisted for attempted robotic assisted technique. Patient is aware open technique may be warranted with her pre-existing condition of peritonitis. Will attempt robotic assisted colostomy reversal with colectomy
[2023-05-11] MEDS: MIDAZOLAM HCL 10 MG/10 ML VIAL IVP ONE (11:28)
[2023-05-11] MEDS ORDERED: ePHEDrine 50 MG/ML 1 ML VIAL ONE (12:44)
[2023-05-11] MEDS ORDERED: SUCCINYLCHOLINE CHLORIDE 200 MG/10 ML VIAL IV ONE (12:44)
[2023-05-11] MEDS ORDERED: NEOSTIGMINE 1 MG/ML 10 ML VIAL ONE (12:44)
[2023-05-11] MEDS ORDERED: HEPARIN SODIUM,PORCINE 5,000 UNIT/ML 1 ML VIAL ONE (12:44)
[2023-05-11] MEDS ORDERED: ROCURONIUM 10 MG/ML (5 ML VIAL) IV ONE (12:44)
[2023-05-11] MEDS ORDERED: GLYCOPYRROLATE 0.2 MG/ML 2 ML VIAL ONE (12:44)
[2023-05-11] MEDS ORDERED: LIDOCAINE 1% INJ 10MG/ML (20 ML MDV) ONE (12:44)
[2023-05-11] MEDS ORDERED: fentaNYL (PF) 50 MCG/ML 2 ML AMP ONE (12:44)
[2023-05-11] MEDS ORDERED: PROPOFOL 10 MG/ML 20 ML VIAL IV ONE (12:44)
[2023-05-11] MEDS ORDERED: MIDAZOLAM 2 MG/2 ML VIAL ONE (12:44)
--- NOTE | 2023-05-11 12:45 | P.ANPRN ---
Procedure Note - Anesthesia - Epidural/Spinal Epidural Continuous Time Out Performed: Yes Date of Procedure: 05/11/23 Procedure Start Time: :04 Procedure Stop Time: :24 Location of Patient: PreOp Indication: Acute Post-Operative Pain Sedation Type: Sedate with meaningful contact maintained Preparation: Sterile Dressing Position: Sitting Catheter: Indwelling Needle Guage: 18 Injectate: 5 mL of 1.5% lidocaine with 1 : 200,000 epinephrine Narrative: Attempted at T10-T11 epidural space, catheter inserted into the epidural space, blood aspirated after the negative aspiration. The catheter removed. Epidural placed at T12-L1 level , without any difficulty. After negative aspiration 5 mL of 1.5% lidocaine with epinephrine test dose was given. Catheter secured. Loss of resistance: 7 cm, catheter at skin: 12 centimeters. epidural catheter secured. Blood Aspirated: No Pain Paresthesia on Injection Noted: No Events: Uneventful and Well Tolerated
[2023-05-11] MEDS: LIDOCAINE 1%-EPI 1:100,000 50 ML VIAL SQ ONE (12:47)
[2023-05-11] MEDS: LACTATED RINGERS 1,000 ML IV ONE ×2 (13:22→15:41)
[2023-05-11] MEDS ORDERED: NALOXONE 0.4 MG/ML 1 ML VIAL IV PRN ×2 (13:42→13:43)
[2023-05-11] MEDS ORDERED: ROPIVACAINE 250 MG, HYDROMORPHONE (PF) 5 MG in SODIUM CHLORIDE 0.9% 200 ML EPIDURAL PRN (13:43)
[2023-05-11] MEDS ORDERED: BENZOCAINE/MENTHOL LOZENG 1 EACH LOZENGE MUCOUS MEM PRN (17:10)
[2023-05-11] MEDS ORDERED: METOCLOPRAMIDE 5 MG/ML 2 ML VIAL IVP PRN (17:10)
[2023-05-11] MEDS ORDERED: HYDROmorphone 1 MG/ML 1 ML SYRINGE IVP PRN (17:10)
--- NOTE | 2023-05-11 17:40 | P.OP ---
Date of Procedure: 05/11/23 Description of Procedure: SURGEON: JOSIAH NELSON MD PREOPERATIVE DIAGNOSES: 1. Perforated sigmoid diverticulitis with descending colostomy and sepsis history 2. Colostomy status 3. Hypertensive heart disease 4. History of perforated appendicitis with sepsis and peritonitis POSTOPERATIVE DIAGNOSES: 1. Perforated sigmoid diverticulitis with descending colostomy and sepsis history 2. Colostomy status 3. Hypertensive heart disease 4. History of perforated appendicitis with sepsis and peritonitis 5. Severe intra-abdominal interloop adhesions OPERATION: 1. Robotic-assisted daVinci Xi laparoscopic lysis of adhesions, extensive over 2 hours 2. Robotic-assisted daVinci Xi closure of colostomy/Hoang's 3. Robotic-assisted daVinci Xi sigmoid colectomy with low anterior resection using 29 mm Ethicon powered stapler 4. Intraoperative colonoscopy used for sigmoidoscopy 5. Application of incisional wound VAC system, 13 cm PREVENA Anesthesia: GETA, local, regional Estimated Blood Loss (ml): 100 Pathology: 1. Sigmoid colon 2. EEA donuts 3. Descending colostomy Condition: stable Disposition: floor COMPLICATIONS: None. Operative Findings: 1. Severe intra-abdominal adhesions and pelvic adhesions from prior ruptured diverticulitis and ruptured appendicitis with peritonitis 2. Anastomosis with EEA stapler 29 mm 3. No tension or torsion along the anastomosis 4. Doughnuts thick and both sides and viable 5. Negative leak test with viable anastomosis. INDICATIONS: The patient is a 68-year-old female who presented 2 months ago with sepsis from perforated appendicitis and perforated diverticulitis. She underwent exploratory laparotomy for peritonitis and descending colostomy status/Mukherjee's procedure. Benefits and risks of surgical intervention was described in detail including infection, injury to the ureter, colostomy creation, possibility for additional surgery was discussed at length. Informed consent was obtained. DESCRIPTION: Earlier the patient had undergone a bowel prep using the enhanced colon recovery program. The patient was transferred to the operating room and placed supine. After general induction, the abdomen was prepped and draped in standard sterile fashion. Ioban was placed along the abdomen to minimize any contamination of skin floor. A Coulter catheter was placed. Her colostomy was covered using 4 x 4. After a timeout protocol was performed, attention was then brought to the left upper quadrant whereby a 0 degree 5 mm laparoscopic trocar entry was performed. The abdominal cavity was entered and insufflated to 15 mmHg pressure, which was tolerated well. Diagnostic laparoscopy confirmed severe omental to abdominal wall adhesions including pelvic adhesions. Next a robotic 12-mm trocar was placed along the right lateral abdominal wall 20 cm superior from the pelvis. Two 8 mm ports were placed along the upper abdomen. Ports were placed 10 cm apart from each other including 20 cm away from the target anatomy of the left pelvis. The 12-mm port was exchanged for an 8 mm robotic port at the left upper quadrant. The robot was docked along the left lateral abdomen. The patient was positioned in steep Trendelenburg position at 21-degrees. Using atraumatic graspers and vessel sealer, the robotic system was docked and p rimed as described. Instruments were interchanged by the temporary administrative assistant including hook cautery, needle milk pickup truck driver, robotic stapler and vessel sealer. The robot stapler was prepared along the right lateral abdominal wall. The stapler 12-mm port was arranged along the right lateral abdominal wall. Omental to abdominal adhesions were taken down sharply using vessel sealer including blunt dissection. Bleeding was controlled with 4 x 4 gauze. Extensive lysis of adhesions over 2-1/2-hour was performed including pelvic adhesions with small bowel adherent to the pelvis including fallopian tubes and ovary. The sigmoid colon rectal stump was identified using blue suture and further mobilized prepared for partial colectomy. I went to the foot of the bed to confirm sizers and placement of 29-mm Ethicon powered stapler. I re-scrubbed into the case. The robotic arms were temporarily undocked. Attention was brought to the descending colostomy of the left lower quadrant where using a #15 blade, ell iptical incision incorporating the ostomy was performed at the dermis. Electro- Bovie cautery was used to mobilize the soft tissue down to the fascia. A 29-mm anvil was placed with a 3-0 silk sutured at the tip of the anvil spot machine operator. Then the anvil was placed via the mobilized descending colostomy. The colostomy was oversewn using 2-0 nylon for airtight closure. The fascia around the ostomy was entered with release of pneumoperitoneum. The ostomy was delivered into the abdominal cavity and the ostomy site and fascia was closed using nonabsorbable blue #1 V-Loc. Attention was brought to the sigmoid rectal stump which was further mobilized and the old suture line was resected using a 60 mm green staple load for partial colectomy. Similarly, the descending colostomy was removed including inflammatory tissue from prior diverticulitis using multiple fires 60 mm green staple load. Next, the sharp tip of the anvil spot machine operator was brought through the staple line. The anvil spot machine operator was removed from the abdomen using robotic needle milk pickup truck driver. I went to the foot of the bed to place the powered Ethicon 29 mm stapler via the rectum. The anvil and stapler were mated for 1 minute. The doughnuts were intact on both sides and thick. An intraoperative leak test was performed as I inserted the colonoscope to the anastomosis. Endoscopic images were obtained. Irrigation was placed in the pelvis and no air leaks were identified. Irrigation fluid was aspirated from the pelvis until dry. I went back to the console. All sponges and needles were removed from the abdominal cavity. The robot was undocked. I re-scrubbed into the case. Via the ostomy site, the sigmoid colon and divided ostomy was removed using 15 mm Endo Catch bag. All sponges were removed from the abdominal cavity. The fascial defect of the ostomy site was oversewn using 0 Vicryl and a Josh William. No contamination had occurred throughout the case. The ostomy fascia was oversewn using nonabsorbable #1 V-Loc Next all pneumoperitoneum was evacuated from the abdominal cavity. The 8-mm trocar sites were reapproximated using 4-0 Monocryl in an interrupted subcuticular fashion. Local anesthetic was infiltrated to all wounds for postop analgesia. All incisions were also cleansed with diluted hydrogen peroxide. The ostomy subcutaneous tissue was irrigated and closed using standard skin ronald. Incisional wound VAC system 13 cm was placed over the ostomy site to decrease risk of infection. Liquid glue was applied to the rest of the skin incisions. The patient had tolerated the procedure well. The patient was extubated successfully. The patient was transferred to the postanesthesia care unit in stable condition. Intraoperative findings were described in detail to the patient's family.
[2023-05-11] MEDS: ONDANSETRON 4 MG/2 ML VIAL IVP SCH (18:12)
[2023-05-11] MEDS: SODIUM CHLORIDE 0.9% 2,000 ML IV ONE (18:12)
[2023-05-11] MEDS: ACETAMINOPHEN IV (For NPO) 1,000 MG in EMPTY BAG 1 BAG IVPB SCH (18:12)
[2023-05-11] MEDS: HEPARIN SODIUM,PORCINE 5,000 UNIT/ML 1 ML VIAL SQ SCH (21:15)
[2023-05-11] MEDS: FAMOTIDINE 20 MG/2 ML VIAL IV SCH (21:15)
[2023-05-11] MEDS: amLODIPine 5 MG TAB PO SCH (21:16)
[2023-05-11] MEDS: BISOPROLOL-HCTZ 5-6.25 MG 1 EACH TAB PO SCH (21:16)
[2023-05-12] MEDS: metroNIDAZOLE-NS PMX 500 MG in SALINE 1 100ML.BAG IVPB SCH (00:03)
[2023-05-12] MEDS: ALVIMOPAN 12 MG CAPSULE PO SCH (08:57)
[2023-05-12] MEDS: ONDANSETRON 4 MG/2 ML VIAL IVP STA (09:14)
--- NOTE | 2023-05-12 10:31 | P.PN ---
Progress Note - Text Progress Note Date: 05/12/23 (3087) Anesthesia Postop day 1 Status post robotic assisted colostomy reversal with epidural day 2 Patient seen and examined. Doing well without complaint. VAS 2 out of 10. Plus nausea and vomiting today no pruritus. Ropivacaine 0.1% with Dilaudid 20 mcg/mL at 4 cc an hour. Objective: Vital signs reviewed Lungs: Good chest excursion Abdomen: Appears nondistended Other: Epidural Site Intact without induration. Dressing intact Neuro: No apparent motor block. Sensory within normal limits. Assessment: Status post robotic assisted colostomy reversal postop day 1 Plan: Continue current care with your medical management. Per Dr. Pettit yesterday, epidural to be pulled this morning. Subcu heparin has not been given in nurse instructed to pull epidural prior to subcu heparin administration. This note was dictated using [employer] software. Please be advised there is a potential for misspellings or errors in aviation electrician.
--- NOTE | 2023-05-12 11:13 | P.CONS ---
History of Present Illness - Reason for Consult low blood pressure - History of Present Illness Patient pleasant 68-year-old female admitted for reversal of colostomy. 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 Patient denies any fever chills. Patient abdominal pain is fairly well-controlled. REVIEW OF SYSTEMS: CONSTITUTIONAL: No fever, no malaise, no fatigue. HEENT: No recent visual problems or hearing problems. Denied any sore throat. CARDIOVASCULAR: No chest pain, orthopnea, PND, no palpitations, no syncope. PULMONARY: No shortness of breath, no cough, no hemoptysis. GASTROINTESTINAL: As mentioned in HPI NEUROLOGICAL: No headaches, no weakness, no numbness. HEMATOLOGICAL: Denies any bleeding or petechiae. GENITOURINARY: Denies any burning micturition, frequency, or urgency. MUSCULOSKELETAL/RHEUMATOLOGICAL: Denies any joint pain, swelling, or any muscle pain. ENDOCRINE: Denies any polyuria or polydipsia. The rest of the 14-point review of systems is negative. PHYSICAL EXAMINATION: GENERAL: The patient is alert and oriented x3, not in any acute distress. Well developed, well nourished. HEENT: Pupils are round and equally reacting to light. EOMI. No scleral icterus. No conjunctival pallor. Normocephalic, atraumatic. No pharyngeal erythema. No thyromegaly. CARDIOVASCULAR: S1 and S2 present. No murmurs, rubs, or gallops. PULMONARY: Chest is clear to auscultation, no wheezing or crackles. ABDOMEN: Soft, nontender, nondistended, sluggish bowel sounds. No palpable organomegaly. MUSCULOSKELETAL: No joint swelling or deformity. EXTREMITIES: No cyanosis, clubbing, or pedal edema. NEUROLOGICAL: Gross neurological examination did not reveal any focal deficits. SKIN: No rashes. Assessment and plan -Hypotension: Expected in the perioperative. Temporarily hold off on Norvasc will continue to monitor patient does not have any lightheadedness at this time. Hold off diuretic as well. Continue beta-shea -Gastroesophageal reflux disease -Chronic low back pain -History of diverticulitis in the past -Mild transaminitis no further intervention is necessary AST and ALT are only minimally elevated DVT prophylaxis: As per primary service Past Medical History Past Medical History: Hypertension Additional Past Medical History / Comment(s): ruptured appy/colon and sepsis, feb 2023 History of Any Multi-Drug Resistant Organisms: None Reported Past Surgical History: Appendectomy, Bowel Resection Additional Past Surgical History / Comment(s): colostomy Past Anesthesia/Blood Transfusion Reactions: No Reported Reaction Past Psychological History: No Psychological Hx Reported Smoking Status: Never smoker Past Alcohol Use History: None Reported Past Drug Use History: None Reported - Past Family History Father Family Medical History: Cancer Additional Family Medical History / Comment(s): oral Medications and Allergies Home Medications Medication Instructions Recorded Confirmed Type Bisoprolol-Hctz 5-6.25 mg [Ziac 1 tab PO HS 02/04/23 05/08/23 History 5-6.25 MG] Bromelain 1 tab PO DAILY 02/04/23 05/08/23 History Magnesium(Unknown Dose) 1 tab PO DAILY 02/04/23 05/08/23 History Multivit-Min/FA/Lycopen/Lutein 1 tab PO DAILY 02/04/23 05/08/23 History [Centrum Silver Tablet] Vitamin C(Unknown Dose) 1 tab PO DAILY 02/04/23 05/08/23 History Vitamin D(Unknown Dose) 1 tab PO DAILY 02/04/23 05/08/23 History amLODIPine [Norvasc] 5 mg PO HS 02/04/23 05/08/23 History Acetaminophen Tab [Tylenol] 1,000 mg PO Q6HR PRN #30 tab 02/12/23 05/08/23 Rx Acetaminophen Tab [Tylenol Tab] 1,000 mg PO Q6HR PRN #30 tablet 05/11/23 Rx Cyclobenzaprine [Flexeril] 10 mg PO TID #30 tab 05/11/23 Rx Ibuprofen [Motrin] 600 mg PO Q8HR PRN #30 tab 05/11/23 Rx Simethicone [Gas-X] 125 mg PO AC-TID PRN #20 capsule 05/11/23 Rx Allergies Allergy/AdvReac Type Severity Reaction Status Date / Time Sulfa (Sulfonamide Allergy Unknown Verified 05/08/23 14:08 Antibiotics) Childhood Physical Exam Vitals: Vital Signs Temp Pulse Pulse Resp BP Pulse Ox 05/12/23 09:52 97 05/12/23 07:52 98.1 F 68 18 94/56 96 05/12/23 00:49 59 L 109/70 99 05/11/23 20:56 69 97/62 100 05/11/23 20:41 68 103/66 100 05/11/23 20:26 78 103/67 100 05/11/23 20:11 85 117/71 100 05/11/23 19:56 77 115/70 100 05/11/23 19:41 78 102/67 100 05/11/23 19:26 74 103/68 100 05/11/23 19:11 75 102/67 100 05/11/23 18:56 67 110/68 100 05/11/23 18:41 70 97/59 99 05/11/23 18:26 81 106/69 99 05/11/23 17:48 115/54 05/11/23 17:46 87 16 102/51 98 05/11/23 17:30 81 16 102/51 100 05/11/23 17:15 78 16 102/43 100 05/11/23 17:00 97.2 F L 90 16 110/54 99 05/11/23 11:46 98.2 F 73 53 L 16 107/56 98 Intake and Output 05/11/23 05/12/23 05/12/23 22:59 06:59 14:59 Intake Total 800 Output Total 330 Balance 470 Intake: IV 800 Output: Urine 230 Estimated Blood Loss 100 Results CBC & Chem 7: 05/10/23 12:57 05/10/23 12:57
[2023-05-12] MEDS: BISOPROLOL 5 MG TAB PO SCH (11:40)
[2023-05-12 13:03] LABS: Basophils # (A) 0.04 X 10*3/uL (0.00-0.10); Basophils % (A) 0.4 %; Eosinophils # (A) 0.02 X 10*3/uL (0.04-0.35); Eosinophils % (A) 0.2 %; HCT 35.1 % (37.2-46.3); HGB 10.9 g/dL (12.0-15.0); Lymphocytes # (A) 1.25 X 10*3/uL (0.90-5.00); Lymphocytes % (A) 13.6 %; MCH 28.9 pg (27.0-32.0); MCHC 31.1 g/dL (32.0-37.0); MCV 93.1 FL (80.0-97.0); Mean Platelet Volume 10.2 FL (9.5-12.2); Monocytes # (A) 0.63 X 10*3/uL (0.20-1.00); Monocytes % (A) 6.8 %; NRBC Per 100 WBC 0 X 10*3/uL (0.00-0.01); Neutrophils # (A) 7.23 X 10*3/uL (1.80-7.70); Neutrophils % (A) 78.7 %; Platelet Count 202 X 10*3/uL (140-440); RBC 3.77 X 10*6/uL (4.10-5.20); RDW 14.6 % (11.5-14.5)
[2023-05-12 13:09] LABS: Blood Urea Nitrogen 4.5 mg/dL (9.0-27.0); Calcium 8.4 mg/dL (8.7-10.3); Carbon Dioxide 22.2 mmol/L (21.6-31.8); Chloride 108 mmol/L (96-109); Glucose 128 mg/dL (70-110); Potassium 4.5 mmol/L (3.5-5.5); Sodium 138 mmol/L (135-145)
[2023-05-12] MEDS ORDERED: ACETAMINOPHEN TAB 500 MG TAB PO PRN (18:00)
[2023-05-12] MEDS: FAMOTIDINE 20 MG TAB PO SCH (20:33)
--- NOTE | 2023-05-12 22:42 | P.PN ---
Subjective Principal diagnosis: Patient seen and evaluated at bedside. Patient doing okay. Admits to nausea but denies significant abdominal pain. Objective - Vital Signs Vital signs: Vital Signs Temp 98.5 F 05/12/23 19:20 Pulse 64 05/12/23 13:50 Resp 15 05/12/23 19:20 BP 110/66 05/12/23 19:20 Pulse Ox 93 L 05/12/23 19:20 FiO2 Intake & Output 05/12/23 05/12/23 05/13/23 06:59 18:59 07:59 Output Total 1900 Balance -1900 Output: Urine 1900 Other: Voiding Method Indwelling Catheter Indwelling Catheter - Exam Gen. no acute distress alert and oriented 3 Cardiovascular regular rate and rhythm Pulmonary nonlabored breathing Abdomen is soft, mild tenderness to palpation no guarding or rebound tenderness, surgical site clean dry and intact - Labs CBC & Chem 7: 05/12/23 07:20 05/12/23 07:20 Labs: Abnormal Lab Results - Last 24 Hours (Table) 05/12/23 05/12/23 Range/Units 07:20 07:20 RBC 3.77 L (4.10-5.20) X 10*6/uL Hgb 10.9 L (12.0-15.0) g/dL Hct 35.1 L (37.2-46.3) % MCHC 31.1 L (32.0-37.0) g/dL RDW 14.6 H (11.5-14.5) % Eosinophils # 0.02 L (0.04-0.35) X 10*3/uL BUN 4.5 L (9.0-27.0) mg/dL BUN/Creatinine Ratio 7.50 L (12.00-20.00) Ratio Glucose 128 H (70-110) mg/dL Calcium 8.4 L (8.7-10.3) mg/dL Assessment and Plan Assessment: 60-year-old female postop day #1 colostomy reversal Assessment bowel function Pain management Incentive spirometer use Nausea medication as needed Time with Patient: Greater than 30
[2023-05-13 09:09] VITALS: RESP 16
--- NOTE | 2023-05-13 10:30 | P.PN ---
Subjective Progress Note Date: 05/13/23 Principal diagnosis: Ostomy reversal 68-year-old female doing fairly well. Yesterday apparently she had episodes of nausea and vomiting and attributed that to her epidural. Epidural was removed. Coulter catheter was just removed this morning. She has not voided yet. No flatus. No nausea or vomiting. Tolerating diet. Patient thinks she would like to try to go home later today. Yesterday's hemoglobin dropped slightly. Objective - Vital Signs Vital signs: Vital Signs Temp 98.5 F 05/13/23 07:30 Pulse 81 05/13/23 07:30 Resp 16 05/13/23 07:30 BP 121/70 05/13/23 07:30 Pulse Ox 95 05/13/23 07:30 FiO2 Intake & Output 05/12/23 05/13/23 05/13/23 17:59 06:59 18:59 Output Total Balance Output: Urine Other: Voiding Method # Voids 1 # Bowel Movements 0 - Exam Abdomen: Soft, nondistended, incisions clean and dry, dressing in place - Labs CBC & Chem 7: 05/12/23 07:20 05/12/23 07:20 Labs: Abnormal Lab Results - Last 24 Hours (Table) 05/12/23 05/12/23 Range/Units 07:20 07:20 RBC 3.77 L (4.10-5.20) X 10*6/uL Hgb 10.9 L (12.0-15.0) g/dL Hct 35.1 L (37.2-46.3) % MCHC 31.1 L (32.0-37.0) g/dL RDW 14.6 H (11.5-14.5) % Eosinophils # 0.02 L (0.04-0.35) X 10*3/uL BUN 4.5 L (9.0-27.0) mg/dL BUN/Creatinine Ratio 7.50 L (12.00-20.00) Ratio Glucose 128 H (70-110) mg/dL Calcium 8.4 L (8.7-10.3) mg/dL Assessment and Plan (1) Colostomy status Narrative/Plan: 68-year-old female doing fairly well today. Await voiding. Continue diet as tolerated. Ambulate. Recheck CBC. Possible discharge later today if doing well. Current Visit: No Status: Acute Code(s): Z93.3 - COLOSTOMY STATUS SNOMED Code(s): 152112290
--- NOTE | 2023-05-13 11:51 | P.DS ---
Providers Date of admission: 05/11/23 17:10 Expected date of discharge: 05/13/23 Attending physician: Krista Pettit Consults: 05/11/23 17:16 Consult Physician Routine Consulting Provider: Flor Aguilar Consult Reason/Comments: Medical management Do you want consulting provider notified?: Yes Primary care physician: Stated None - Discharge Diagnosis(es) (1) Colostomy status Please refer to progress note dictated earlier today. Patient voiding well without difficulties. Has no pain. She would like to go home. Will plan discharge. Follow-up with Dr. Pettit as outpatient. Current Visit: No Status: Acute Plan - Discharge Summary Discharge Rx Participant: No New Discharge Prescriptions: New Cyclobenzaprine [Flexeril] 10 mg PO TID #30 tab Acetaminophen Tab [Tylenol Tab] 1,000 mg PO Q6HR PRN #30 tablet PRN Reason: Pain Ibuprofen [Motrin] 600 mg PO Q8HR PRN #30 tab PRN Reason: Pain Simethicone [Gas-X] 125 mg PO AC-TID PRN #20 capsule PRN Reason: Pain Continue Vitamin D(Unknown Dose) 1 tab PO DAILY Multivit-Min/FA/Lycopen/Lutein [Centrum Silver Tablet] 1 tab PO DAILY amLODIPine [Norvasc] 5 mg PO HS Magnesium(Unknown Dose) 1 tab PO DAILY Bromelain 1 tab PO DAILY Acetaminophen Tab [Tylenol] 1,000 mg PO Q6HR PRN #30 tab PRN Reason: Pain Vitamin C(Unknown Dose) 1 tab PO DAILY Bisoprolol-Hctz 5-6.25 mg [Ziac 5-6.25 MG] 1 tab PO HS Discharge Medication List Bisoprolol-Hctz 5-6.25 mg [Ziac 5-6.25 MG] 1 tab PO HS 02/04/23 [History] Bromelain 1 tab PO DAILY 02/04/23 [History] Magnesium(Unknown Dose) 1 tab PO DAILY 02/04/23 [History] Multivit-Min/FA/Lycopen/Lutein [Centrum Silver Tablet] 1 tab PO DAILY 02/04/23 [History] Vitamin C(Unknown Dose) 1 tab PO DAILY 02/04/23 [History] Vitamin D(Unknown Dose) 1 tab PO DAILY 02/04/23 [History] amLODIPine [Norvasc] 5 mg PO HS 02/04/23 [History] Acetaminophen Tab [Tylenol] 1,000 mg PO Q6HR PRN #30 tab 02/12/23 [Rx] Acetaminophen Tab [Tylenol Tab] 1,000 mg PO Q6HR PRN #30 tablet 05/11/23 [Rx] Cyclobenzaprine [Flexeril] 10 mg PO TID #30 tab 05/11/23 [Rx] Ibuprofen [Motrin] 600 mg PO Q8HR PRN #30 tab 05/11/23 [Rx] Simethicone [Gas-X] 125 mg PO AC-TID PRN #20 capsule 05/11/23 [Rx] Follow up Appointment(s)/Referral(s): Krista Pettit MD [STAFF PHYSICIAN] - 05/15/23 (TELEHEALTH - DR WILL CALL YOU BETWEEN 8 am to 8 pm) Patient Instructions/Handouts: Colectomy Diet (DC), Laparoscopic Bowel Resection (DC) Activity/Diet/Wound Care/Special Instructions: TELEHEALTH - DR WILL CALL YOU BETWEEN 8 am to 8 pm EXPECT BOWEL MOVEMENT WITH BLOOD FOR 1 WEEK TAKE LAXATIVE FOR CONSTIPATION AFTER 4 DAYS, 05/15/2023 Wear abdominal binder for comfort. No lifting over 4 pounds in 4 weeks June 10July shower. No bath tub soaks for two weeks until May 24 Avoid steak, tough meats and seeds such as raspberry seeds. See diverticulitis, low fiber, colectomy diet Use Tylenol and ibuprofen scheduled for the next 24-48 hours for best pain relief.
[2023-05-13 12:14] LABS: Basophils % (A) 1 %; Eosinophils # (A) 0.3 k/uL (0-0.7); Eosinophils % (A) 4 %; HCT 36.9 % (34.0-46.0); HGB 11.9 gm/dL (11.4-16.0); Lymphocytes # (A) 1.8 k/uL (1.0-4.8); Lymphocytes % (A) 24 %; MCH 29.1 pg (25.0-35.0); MCHC 32.3 g/dL (31.0-37.0); MCV 90.2 fL (80.0-100.0); Mean Platelet Volume 8.3; Monocytes # (A) 0.3 k/uL (0-1.0); Monocytes % (A) 4 %; Neutrophils % (A) 66 %; Platelet Count 168 k/uL (150-450); RBC 4.09 m/uL (3.80-5.40); RDW 14.7 % (11.5-15.5); WBC 7.6 k/uL (3.8-10.6)
[2023-05-13 13:51] VITALS: BP 132/81; PULSE 89; TEMP 99
--- NOTE | 2023-05-14 23:03 | P.PN ---
Subjective Progress Note Date: 05/13/23 Patient pleasant 68-year-old female admitted for reversal of colostomy. 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 Patient denies any fever chills. Patient abdominal pain is fairly well-controlled. 05/13/2023 Patient evaluated today on the medical floor. Postoperative colostomy reversal. Having minimal abdominal pain and bowel sounds are increased. Coulter catheter has been remove and patient is voiding without difficulties. Upgraded to regular d iet. Hemoglobin stable hemodynamically stable.. Nonsurgical abdomen Review of Systems Constitutional: Denied any fatigue denied any fever. Cardio vascular: denied any chest pain, palpitations Gastrointestinal: denied any nausea, vomiting, diarrhea Pulmonary: Denied any shortness of breath cough Neurologic denied any new focal deficits All inpatient medications were reviewed and appropriate changes in these medications as dictated in the interval history and assessment and plan. PHYSICAL EXAMINATION: GENERAL: The patient is alert and oriented x3, not in any acute distress. Well developed, well nourished. HEENT: Pupils are round and equally reacting to light. EOMI. No scleral icterus. No conjunctival pallor. Normocephalic, atraumatic. No pharyngeal erythema. No thyromegaly. CARDIOVASCULAR: S1 and S2 present. No murmurs, rubs, or gallops. PULMONARY: Chest is clear to auscultation, no wheezing or crackles. ABDOMEN: Soft, nontender, nondistended, sluggish bowel sounds. No palpable organomegaly. Laparoscopic incisions intact. MUSCULOSKELETAL: No joint swelling or deformity. EXTREMITIES: No cyanosis, clubbing, or pedal edema. NEUROLOGICAL: Gross neurological examination did not reveal any focal deficits. SKIN: No rashes. Assessment and plan -Hypotension: Expected in the perioperative. Resolved and can resume all home medications on discharge. -Gastroesophageal reflux disease -Chronic low back pain -History of diverticulitis in the past -Mild transaminitis no further intervention is necessary AST and ALT are only minimally elevated -Colostomy reversal postoperative day #1. Pt had perforated sigmoid diverticulitis in the past. DVT prophylaxis: As per primary service Full Code Patient medically is stable for discharge. Resume all same home medications. The impression and plan of care has been dictated by Anastasia Winslow, Nurse Practitioner as directed. Dr. Gregory MD I have performed a history and physical examination and medical decision making of this patient, discussed the same with the dictator, and agree with the dictators assessment and plan as written, documented as a scribe. Based on total visit time, I have performed more than 50% of this visit. Objective - Vital Signs Vital signs: Vital Signs Temp 99 F 05/13/23 13:05 Pulse 89 05/13/23 13:05 Resp 16 05/13/23 13:05 BP 132/81 05/13/23 13:05 Pulse Ox 98 05/13/23 13:05 FiO2 - Labs CBC & Chem 7: 05/13/23 11:43 05/12/23 07:20 Assessment and Plan Time with Patient: Less than 30
== END 2023-05-13 14:48 | disposition home or self-care (01) | DRG 337 ==
LOC: ORWHC2ENDO 11:11 → 4SSUR 11:12 → ORWHC2ENDO 05-11 18:27
PROVIDERS: ADMIT Surgery Plastic and Reconstructive Surgery; ATTEND Surgery Plastic and Reconstructive Surgery
PROC: 0DJD8ZZ Inspection of Lower Intestinal Tract, Via Natural or Artificial Opening Endoscopic (ICD-10-PCS; 2023-05-10)
PROC: 0DNW4ZZ Release Peritoneum, Percutaneous Endoscopic Approach (ICD-10-PCS; principal; 2023-05-11 10:55)
PROC: 0UN24ZZ Release Bilateral Ovaries, Percutaneous Endoscopic Approach (ICD-10-PCS; principal; 2023-05-11 10:55)
PROC: 0DN84ZZ Release Small Intestine, Percutaneous Endoscopic Approach (ICD-10-PCS; principal; 2023-05-11 10:55)
PROC: 0DNU4ZZ Release Omentum, Percutaneous Endoscopic Approach (ICD-10-PCS; principal; 2023-05-11 10:55)
PROC: 8E0W4CZ Robotic Assisted Procedure of Trunk Region, Percutaneous Endoscopic Approach (ICD-10-PCS; principal; 2023-05-11 10:55)
PROC: 0UN74ZZ Release Bilateral Fallopian Tubes, Percutaneous Endoscopic Approach (ICD-10-PCS; principal; 2023-05-11 10:55)
PROC: 0DSN4ZZ Reposition Sigmoid Colon, Percutaneous Endoscopic Approach (ICD-10-PCS; principal; 2023-05-11 10:55)
DX: Z43.3 Encounter for attention to colostomy (principal); I11.9 Hypertensive heart disease without heart failure; I95.9 Hypotension, unspecified; G89.29 Other chronic pain; Z28.310 Unvaccinated for COVID-19; N73.6 Female pelvic peritoneal adhesions (postinfective); K57.30 Diverticulosis of large intestine without perforation or abscess without bleeding; K64.2 Third degree hemorrhoids; M54.50 Low back pain, unspecified; K21.9 Gastro-esophageal reflux disease without esophagitis; R74.01 Elevation of levels of liver transaminase levels; M19.90 Unspecified osteoarthritis, unspecified site; Z79.899 Other long term (current) drug therapy; Z88.2 Allergy status to sulfonamides
CPT/HCPCS: 80048; 80053; 85025; 85610; 86850; 86900; 86901; 88304; 94760

== ENCOUNTER → 2023-12-05 | Outpatient (CLI) | payer BC ==
[2023-12-05 16:48] LABS: Basophils % (A) 1.6 %; Eosinophils # (A) 0.35 X 10*3/uL (0.04-0.35); Eosinophils % (A) 5.8 %; HCT 40.7 % (37.2-46.3); HGB 13.5 g/dL (12.0-15.0); Lymphocytes # (A) 2.32 X 10*3/uL (0.90-5.00); Lymphocytes % (A) 38.2 %; MCH 28.5 pg (27.0-32.0); MCHC 33.2 g/dL (32.0-37.0); Mean Platelet Volume 9.8 FL (9.5-12.2); Monocytes # (A) 0.65 X 10*3/uL (0.20-1.00); Monocytes % (A) 10.7 %; NRBC Per 100 WBC 0 X 10*3/uL (0.00-0.01); Neutrophils # (A) 2.64 X 10*3/uL (1.80-7.70); Neutrophils % (A) 43.4 %; Platelet Count 262 X 10*3/uL (140-440); RBC 4.73 X 10*6/uL (4.10-5.20); RDW 13.9 % (11.5-14.5); WBC 6.08 X 10*3/uL (4.50-10.00)
== END | disposition home or self-care (01) ==
LOC: LABPAT 11:47
PROVIDERS: ATTEND Surgery Plastic and Reconstructive Surgery
DX: Z01.818 Encounter for other preprocedural examination
CPT/HCPCS: 84132; 85025; 93005

== ENCOUNTER 2023-12-07 05:38 | Day surgery (SDC) | payer BC ==
[2023-12-04 08:34] VITALS: BMI 29.6
[~2023-12-07 05:38] MED LIST changes: +ACETAMINOPHEN TAB 500 MG TAB PO PRN; -Antibiotics per Pharmacy 1 EACH MISC MISCELLANE PRN
--- NOTE | 2023-12-07 05:48 | P.GSHP ---
History of Present Illness H&P Date: 12/07/23 CHIEF COMPLAINT: Incisional hernia. HISTORY OF PRESENT ILLNESS: The patient is a 68-year-old female who presents with swelling along the left abdomen for over 4 months with pain and tenderness. She had prior colostomy reversal less than 1 year ago and has gained moderate weight including lifting over 30 to 50 pounds often. Findings are consistent with incisional ventral hernia. Now she presents for further evaluation and management. PAST MEDICAL HISTORY: Please see list and reviewed. PAST SURGICAL HISTORY: Please see list and reviewed. MEDICATIONS: Please see list and reviewed. ALLERGIES: Please see list and reviewed. SOCIAL HISTORY: Please see list and reviewed. FAMILY HISTORY: No reports of Crohn disease or ulcerative colitis. REVIEW OF ORGAN SYSTEMS: CONSTITUTIONAL: No reports of fevers or chills. Has morbid obesity.. GI: Denies any blood in stools or constipation. Prior diverticulitis rupture and appendicitis. HEENT: Denies any trouble with vision, hearing or nosebleeds. No difficulty swallowing. LYMPHATIC: The patient denies any lumps and bumps around the neck. ENDOCRINE: Denies any thyroid disorders. Denies any blood sugar glucose intolerance. RESPIRATORY: Denies pneumonia. Denies any troubles with breathing or dyspnea on exertion. CARDIOVASCULAR: Denies any chest pain, palpitations, or recent heart attacks. GENITOURINARY: Denies any blood in urine or increased urinary frequency. MUSCULOSKELETAL: Denies any back pain, stiffness, joint arthritis. NEUROLOGIC: Denies any numbness or tingling along the distal extremities. No seizure disorders or headaches. PSYCHIATRIC: Has depression. No suidical ideation. HEMATOLOGIC: Denies any abnormal bleeding or bruising. BREASTS: Denies any breast lumps, pain or nipple discharge. PHYSICAL EXAM: VITAL SIGNS: Stable GENERAL: Well-developed pleasant female in no acute distress. HEENT: No scleral icterus. Extraocular movements grossly intact. Moist buccal mucosa. NECK: Supple without lymphadenopathy. CHEST: Unlabored respirations. Equal bilateral excursions. CARDIOVASCULAR: Regular rate and rhythm. Distal 2+ pulses. ABDOMEN: Soft, nondistended. Tender along the abdomen. Protuberant. MUSCULOSKELETAL: No clubbing, cyanosis, or edema. SKIN: Well perfused. PSYCH: Alert and oriented. No focal or lateralizing signs. ASSESSMENT: 1. Incisional ventral hernia PLAN: 1. Recommend proceeding with robotic ventral hernia repair with mesh. 2. Benefits and risks of surgical intervention was discussed including possibility of open technique. 3. DVT prophylaxis. 4. Antibiotic prophylaxis. 5. Non-narcotic pain managment reviewed. 6. No active tobacco 7. Abdominal wall block advised. 8. Weight management described. Past Medical History Past Medical History: Hypertension Additional Past Medical History / Comment(s): ruptured appy/colon and sepsis, feb 2023, hernia, borderline DM-managed with diet. Post menopausal bleeding- seen OBGYN having US done 12/04/23 History of Any Multi-Drug Resistant Organisms: None Reported Past Surgical History: No Surgical Hx Reported Additional Past Surgical History / Comment(s): colostomy, reversal colostomy May 2023 Past Anesthesia/Blood Transfusion Reactions: No Reported Reaction Smoking Status: Never smoker - Past Family History Father Family Medical History: Cancer Additional Family Medical History / Comment(s): oral Medications and Allergies Home Medications Medication Instructions Recorded Confirmed Type Bisoprolol-Hctz 5-6.25 mg [Ziac 1 tab PO HS 02/04/23 12/04/23 History 5-6.25 MG] Bromelain 1 tab PO DAILY 02/04/23 12/04/23 History Magnesium(Unknown Dose) 1 tab PO DAILY 02/04/23 12/04/23 History Vitamin C(Unknown Dose) 1 tab PO DAILY 02/04/23 12/04/23 History Vitamin D(Unknown Dose) 1 tab PO DAILY 02/04/23 12/04/23 History amLODIPine [Norvasc] 5 mg PO HS 02/04/23 12/04/23 History Acetaminophen Tab [Tylenol] 1,000 mg PO Q6HR PRN #30 tab 02/12/23 12/04/23 Rx Ibuprofen [Motrin] 600 mg PO Q8HR PRN #30 tab 05/11/23 12/04/23 Rx Cetirizine HCl/Pseudoephedrine 1 tab PO Q12H 12/04/23 12/04/23 History [Zyrtec-D ER 5 mg-120 mg Tablet] Multivit with Calcium,Iron,Min 1 each PO DAILY 12/04/23 12/04/23 History [Women's Multivitamin] Allergies Allergy/AdvReac Type Severity Reaction Status Date / Time Sulfa (Sulfonamide Allergy Unknown Verified 10/01/24 08:21 Antibiotics) adhesive tape AdvReac Rash/Hives Verified 12/04/23 09:38
[2023-12-07] MEDS ORDERED: DEXAMETHASONE SOD PHOSPHATE 4 MG/ML 1 ML VIAL IM STA (05:50)
[2023-12-07] MEDS: IV FLUID CONTINUATION 1,000 ML IV ONE ×2 (06:38→09:00)
[2023-12-07 06:41] LABS: Glucose,Whole Blood 131 mg/dL (70-110)
[2023-12-07] MEDS: LACTATED RINGERS 1,000 ML IV SCH (06:41)
[2023-12-07] MEDS: ONDANSETRON 4 MG/2 ML VIAL IVP PRN (06:42)
[2023-12-07] MEDS: GABAPENTIN 300 MG CAP PO STA (06:43)
[2023-12-07] MEDS: MELOXICAM 7.5 MG TAB PO STA (06:43)
[2023-12-07] MEDS: FAMOTIDINE 20 MG TAB PO STA (06:44)
[2023-12-07] MEDS: DEXAMETHASONE SOD PHOSPHATE 4 MG/ML 1 ML VIAL IVP STA (06:51)
[2023-12-07] MEDS ORDERED: HYDROmorphone 0.5 MG/0.5 ML SYRINGE IVP PRN (07:00)
[2023-12-07] MEDS: MIDAZOLAM 2 MG/2 ML VIAL IV PRN (07:14)
[2023-12-07] MEDS: HEPARIN SODIUM,PORCINE 5,000 UNIT/ML 1 ML VIAL SQ PRN (07:24)
[2023-12-07] MEDS ORDERED: MIDAZOLAM 2 MG/2 ML VIAL ONE (07:35)
[2023-12-07] MEDS ORDERED: ROCURONIUM 10 MG/ML (5 ML VIAL) IV ONE (07:35)
[2023-12-07] MEDS ORDERED: SODIUM CHLORIDE 0.9% (PF) 10 ML VIAL ONE (07:35)
[2023-12-07] MEDS ORDERED: SUCCINYLCHOLINE CHLORIDE 200 MG/10 ML VIAL IV ONE (07:35)
[2023-12-07] MEDS ORDERED: NEOSTIGMINE 1 MG/ML 10 ML VIAL ONE (07:35)
[2023-12-07] MEDS: LIDOCAINE 1%-EPI 1:100,000 20 ML VIAL SQ ONE (07:35)
[2023-12-07] MEDS ORDERED: fentaNYL (PF) 50 MCG/ML 2 ML AMP ONE (07:35)
[2023-12-07] MEDS ORDERED: GLYCOPYRROLATE 0.2 MG/ML 2 ML VIAL ONE (07:35)
[2023-12-07] MEDS ORDERED: ROPIVACAINE 5 MG/ML 30 ML VIAL ONE (07:35)
[2023-12-07] MEDS ORDERED: PROPOFOL 10 MG/ML 20 ML VIAL IV ONE (07:35)
[2023-12-07] MEDS ORDERED: DEXAMETHASONE SOD PHOSPHATE 4 MG/ML 1 ML VIAL ONE (07:35)
[2023-12-07] MEDS ORDERED: LIDOCAINE 4% LTA KIT (4 ML) TOPICAL ONE (07:35)
[2023-12-07] MEDS ORDERED: PHENYLEPHRINE 10 MG/ML VIAL ONE (07:35)
--- NOTE | 2023-12-07 08:15 | P.ANPRN ---
Procedure Note - Anesthesia - Nerve Block Performed Bilateral Erector Spinae Single Time Out Performed: Yes Date of Procedure: 12/07/23 Procedure Start Time: :14 Procedure Stop Time: : Location of Patient: PreOp Indication: Acute Post-Operative Pain, Requested by Surgeon Sedation Type: Sedate with meaningful contact maintained Preparation: Sterile Prep, Sterile Dressing Position: Prone Catheter: None Needle Types: Facet Needle Gauge: 20 Ultrasound used to visualize needle placement: Yes Ultrasound used to observe medication spread: Yes Injectate: Other (see comment) (Ropivacaine 0.25% 30 ml + decadron 2 mg per side) Blood Aspirated: No Pain Paresthesia on Injection Noted: No Resistance on Injection: Normal Image Stored and Saved: Yes Events: Uneventful and Well Tolerated
[2023-12-07 10:02] VITALS: TEMP 97.4
--- NOTE | 2023-12-07 10:43 | P.OP ---
Date of Procedure: 12/07/23 Description of Procedure: SURGEON: KRISTA PETTIT MD PREOPERATIVE DIAGNOSES: 1. Initial incisional ventral hernia 2. Previous history of diverticulitis requiring descending colostomy at the left lower quadrant and subsequent reversal. POSTOPERATIVE DIAGNOSES: 1. Initial incisional ventral hernia incarcerated x 2, 6 x 4 cm left lateral abdomen, 4 x 4 cm mid abdomen, total defect 10 x 8 cm, combined 2. Previous history of diverticulitis requiring descending colostomy and subsequent reversal. 3. Intra-abdominal peritoneal adhesions, severe OPERATION: 1. Robotic-assisted daVinci Xi laparoscopic repair of initial incisional ventral hernia 10 x 8 cm combined with fascial imbrication 2 with mesh, 15 x [address] mesh 2. Robotic-assisted daVinci Xi laparoscopic extensive lysis of adhesions over 1 hour ANESTHESIA: General with local, regional block ESTIMATED BLOOD LOSS: 5 mL. SPECIMENS: None. COMPLICATIONS: None. Operative Findings: 1. Severe intra-abdominal adhesions midline, pelvis, left lateral abdominal wall 2. Extensive lysis of adhesions over 1 hour robotic-assisted approach 3. Two incisional hernias identified along the mid abdomen, 4 x 4 cm and 6 x 4 cm left lateral abdomen closed fascial defect separately with 1 large combined mesh, 15 x 20 cm Ventralight INDICATIONS: The patient is a 68-year-old female who presents with incisional ventral hernia of the left lower quadrant following a previous colostomy for diverticulitis. Surgical intervention with laparoscopic versus robotic and open techniques were reviewed. Placement of mesh was also reviewed. Benefits and risks were thoroughly described. Informed consent was obtained. DESCRIPTION OF PROCEDURE: The patient was brought into the operating room and laid in supine position. After general induction, the abdomen had been prepped and draped in standard sterile fashion. Ioban draping was also placed. Prior to incision, a timeout protocol was confirmed with surgical team regarding the patient's name including procedures to be performed. The robot was primed prior to the procedure. A field block using local anesthetis was placed along hernia site including the proposed port sites. Initial incision was made with an #11 blade along the left upper quadrant. A 0 degree 5 mm laparoscopic trocar entry was performed. Diagnostic laparoscopy demonstrated severe peritoneal adhesions along the midline; however the upper abdomen was free. Peritoneal adhesions of small bowel to the abdominal wall along the midline was identified. A 8 mm trocar was placed along the epigastrium and right upper quadrant. The 5- mm port was exchanged for an 8 mm robotic port. Placements of the ports were 20 cm from the target anatomy and 10 cm apart. The da Autumn XI robot was previously primed, prepped and draped then docked along the left side of the patient. I then sat at the robot Da Autumn XI console where working arms of the robot including Bovie cautery connected to robotic scissors, vessel sealer and graspers placed by the assistant analyst. Adhesions along the midline were initially addressed with scissors and vessel sealer however limited view of the left upper quadrant was confirmed. The robot was docked for repositioning of trochars. Additional two ports were then placed along the right lateral abdominal wall 8 mm trochars. The robot was re-docked. The right side was positioned up and extensive lysis of adhesions occurred over 1 hour without enterotomies using vessel sealer. The hernia bordering fascia was cleaned of peritoneal fat. Next, hemostasis was checked with cautery. The hernia defect was oversewn using #1 StrataFix with fascial imbrication 3. Mesh placement was avoided given the severe peritoneal adhesions and foreign body reaction to the mesh. A final endoscopic imaging was obtained. All instruments and pneumoperitoneum were evacuated from the abdominal cavity. The da Autumn XI robot was undocked from the patient. I re-scrubbed into the case for closure of incisions. The incisions were reapproximated using 4-0 Monocryl in an interrupted subcuticular fashion. Liquid glue was applied to the skin. At the end of the procedure, needle, sponge, and instrument count had been verified correct by blending technician. The patient was taken to the postanesthesia care unit in stable condition with abdominal binder. Plan - Discharge Summary Discharge Rx Participant: No New Discharge Prescriptions: New Ibuprofen [Motrin] 600 mg PO Q8HR PRN #30 tab PRN Reason: Pain Acetaminophen Tab [Tylenol Tab] 1,000 mg PO Q6HR PRN #30 tablet PRN Reason: Pain Simethicone [Gas-X] 125 mg PO AC-TID PRN #20 capsule PRN Reason: Pain Continue Vitamin D(Unknown Dose) 1 tab PO DAILY amLODIPine [Norvasc] 5 mg PO HS Magnesium(Unknown Dose) 1 tab PO DAILY Bromelain 1 tab PO DAILY Multivit with Calcium,Iron,Min [Women's Multivitamin] 1 each PO DAILY Vitamin C(Unknown Dose) 1 tab PO DAILY Bisoprolol-Hctz 5-6.25 mg [Ziac 5-6.25 MG] 1 tab PO HS Cetirizine HCl/Pseudoephedrine [Zyrtec-D ER 5 mg-120 mg Tablet] 1 tab PO Q12H Discontinued Acetaminophen Tab [Tylenol] 1,000 mg PO Q6HR PRN #30 tab PRN Reason: Pain Ibuprofen [Motrin] 600 mg PO Q8HR PRN #30 tab PRN Reason: Pain Discharge Medication List Bisoprolol-Hctz 5-6.25 mg [Ziac 5-6.25 MG] 1 tab PO HS 02/04/23 [History] Bromelain 1 tab PO DAILY 02/04/23 [History] Magnesium(Unknown Dose) 1 tab PO DAILY 02/04/23 [History] Vitamin C(Unknown Dose) 1 tab PO DAILY 02/04/23 [History] Vitamin D(Unknown Dose) 1 tab PO DAILY 02/04/23 [History] amLODIPine [Norvasc] 5 mg PO HS 02/04/23 [History] Cetirizine HCl/Pseudoephedrine [Zyrtec-D ER 5 mg-120 mg Tablet] 1 tab PO Q12H 12/04/23 [History] Multivit with Calcium,Iron,Min [Women's Multivitamin] 1 each PO DAILY 12/04/23 [History] Acetaminophen Tab [Tylenol Tab] 1,000 mg PO Q6HR PRN #30 tablet 12/07/23 [Rx] Ibuprofen [Motrin] 600 mg PO Q8HR PRN #30 tab 12/07/23 [Rx] Simethicone [Gas-X] 125 mg PO AC-TID PRN #20 capsule 12/07/23 [Rx] Follow up Appointment(s)/Referral(s): Krista Pettit MD [STAFF PHYSICIAN] - 12/11/23 3:45 pm Patient Instructions/Handouts: Abdominal Binder (DC), Incisional Hernia (DC) Activity/Diet/Wound Care/Special Instructions: No lifting for 4 pounds in 4 weeks, January 06 NO LONG DRIVES OR AIRPLANE RIDES OVER 30 MINUTES FOR THE NEXT 2 WEEKS, Dec 20, DUE TO HIGH RISK OF PULMONARY EMBOLISM/DVTs Using antibacterial soap. May shower. No bathtub soaks for 2 weeks, Dec 18 Wear abdominal binder daily for comfort except for showering. Use ice along incisions for today to prevent swelling. Use Tylenol, simethicone and ibuprofen or Aleve scheduled for the next 24-48 hours for best pain relief. Discharge Disposition: HOME SELF-CARE
[2023-12-07] MEDS: HYDROcodone/APAP 5-325MG 1 EACH TAB PO STA (12:00)
[2023-12-07 12:30] VITALS: RESP 16
[2023-12-07 12:55] VITALS: BP 107/70
[2023-12-07 13:07] VITALS: PULSE 70
== END 2023-12-07 13:23 | disposition home or self-care (01) ==
LOC: OR 05:38
PROVIDERS: ATTEND Surgery Plastic and Reconstructive Surgery
DX: K43.9 Ventral hernia without obstruction or gangrene
CPT/HCPCS: 64999